=== PATIENT | female | born 1955 | race Caucasian/White ===

== ENCOUNTER 2021-04-10 09:15 | Outpatient (REF) | payer MEDICARE, MEDICAID, SELFPAY ==
[2021-04-10 09:41] LABS: Binax Internal Control QC Valid; Binax Now Covid-19 Ag Positive (Negative)
== END 2021-04-10 09:16 | disposition home or self-care (01) ==
LOC: HO.HMGCLDS 09:15
PROVIDERS: PCP Internal Medicine; Visit Provider Nurse Practitioner Family
DX: Z13.89 Encounter for screening for other disorder (principal)

== ENCOUNTER 2021-08-11 08:27 | Inpatient (IN) | payer MEDICARE, MEDICAID, SELFPAY ==
--- NOTE | ~2021-08-11 | NM_ITS ---
EXAMINATION: NM BILIARY TRACT IMAGING STUDY CLINICAL INFORMATION: Right upper quadrant pain. Question of acute cholecystitis.. COMPARISON: Moderate quadrant ultrasound performed earlier same date. TECHNIQUE: Serial gamma scintillation camera images were obtained over the abdomen for a total observation period of 240 minutes following the intravenous administration of 5.0 mCi Tc-99m Mebrofenin. FINDINGS: There is good concentration of activity in the liver by 5 minutes post injection. Biliary activity is visualized by 7 minutes. Small bowel is well visualized by 9 minutes. The gallbladder is not visualized during the course of the examination. NM/NM hepatobiliary wo pharm IMPRESSION: Nonvisualization of the gallbladder would be compatible with obstruction of the cystic duct and would be compatible with acute cholecystitis, as suggested on the right upper quadrant ultrasound.
--- NOTE | ~2021-08-11 | CT_ITS ---
PROCEDURE: CT GUIDED GALLBLADDER DRAINAGE. CLINICAL INFORMATION: Acute cholecystitis.. Nonsurgical case. COMPARISON: HIDA scan and ultrasound abdomen 08/11/2021 TECHNIQUE: Following explaining CT fluoroscopy-guided placement of the gallbladder catheter procedure, benefits and risk, a written consent was obtained. Patient was placed on CT fluoroscopy table and preliminary CT imaging was obtained through the upper abdomen. Lead markers were placed along the right anterolateral abdomen and repeat CT imaging was performed. An optimal markers was selected and marked on the skin. The area was prepped and draped in usual sterile manner with 2% chlorhexidine solution. 1% lidocaine was injected at puncture site. Through a small skin incision a long 5 [place] Yueh catheter was inserted from the skin into the gallbladder under CT fluoroscopy guidance. After confirming tip in the gallbladder and observing bilateral drainage a 0.135 J-wire was placed inside the gallbladder. The Yueh catheter was removed and 8.5 [place] APD catheter was advanced over the guidewire. Repeat CT fluoroscopy imaging was performed and after confirming catheter within the gallbladder the guidewire and the stiffener were removed and the string was pulled with subsequent formation of the pigtail. The catheter was then connected to suction bulb is large grenade via connecting cannula. The catheter was anchored to the skin with 3 0 nonabsorbable nylon sutures and dressing. Conscious sedation was utilized during the exam and patient monitored by IR nursing. Patient tolerated procedure extremely well but developed symptoms post procedure. Patient was sent to postop recovery room and was followed by the surgeon and the hospitalist. This CT examination was performed using dose optimization techniques as appropriate, variously including the following: *Automated exposure control *Adjustment of mA and/or kV according to patient size (this includes techniques or standardized protocols for targeted exams where dose is matched to indication/reason for exam; i.e. extremities or head) *Use of iterative reconstruction technique DLP: 561 mGy-cm FINDINGS: On preliminary CT imaging there is a distended gallbladder with a large gallstone and likely gallbladder wall thickening and heterogeneous appearance. 8.5 [place] APD catheter was at place within the gallbladder with immediate 25 mL of bile drained. It did not appear to purulent. CT/CT drain peritoneum IMPRESSION: Successful CT fluoroscopy-guided placement of 8.5 [place] APD catheter connected to suction bulb/crenated. Flush 10 mL of saline every 8 hours without aspiration of fluid.
--- NOTE | ~2021-08-11 | XR_ITS ---
EXAMINATION: CHEST, KUB CLINICAL INFORMATION: Sudden onset wheezing and shortness of breath after cholecystotomy COMPARISON: Chest radiograph 12/16/2008, CT guided drainage 08/14/2021, earlier today TECHNIQUE: Single view chest, single view abdomen FINDINGS: The lungs are hypoexpanded. Right midlung atelectasis is seen. Heart size normal without CHF. No pneumothorax. No large pleural effusion. No consolidations. A cholecystostomy catheter is present. There is an ovoid 1.4 cm calculus present in the right renal pelvis. No evidence of bowel obstruction. Degenerative changes present in the spine. XR/XR chest 1V IMPRESSION: No acute disease seen in the chest or abdomen.
--- NOTE | ~2021-08-11 | XR_ITS ---
EXAMINATION: CHEST, KUB CLINICAL INFORMATION: Sudden onset wheezing and shortness of breath after cholecystotomy COMPARISON: Chest radiograph 12/16/2008, CT guided drainage 08/14/2021, earlier today TECHNIQUE: Single view chest, single view abdomen FINDINGS: The lungs are hypoexpanded. Right midlung atelectasis is seen. Heart size normal without CHF. No pneumothorax. No large pleural effusion. No consolidations. A cholecystostomy catheter is present. There is an ovoid 1.4 cm calculus present in the right renal pelvis. No evidence of bowel obstruction. Degenerative changes present in the spine. XR/XR KUB IMPRESSION: No acute disease seen in the chest or abdomen.
--- NOTE | ~2021-08-11 | US_ITS ---
EXAMINATION: US ABDOMEN LIMITED CLINICAL INFORMATION: Right upper quadrant pain. COMPARISON: None TECHNIQUE: Real-time imaging of the right upper quadrant abdominal viscera. FINDINGS: PANCREAS: Visualized portions of pancreas are normal in appearance. LIVER: The liver is normal in size. The liver contour is normal. Liver echogenicity is diffusely increased. No focal hepatic lesion. There is no intrahepatic biliary duct dilatation seen. GALLBLADDER: The gallbladder is distended. There is prominent echogenic, avascular, nonshadowing material within the gallbladder which is nonspecific but suspected to represent echogenic bile. Only a tiny subcentimeter gallstone is noted. There is diffuse gallbladder wall thickening measuring up to 1.2 cm. Pericholecystic fluid is noted. Technologist reports mild discomfort with transducer palpation. COMMON BILE DUCT: Normal in caliber measuring 0.7 cm in diameter. RIGHT KIDNEY: No hydronephrosis. No renal calculi or focal parenchymal lesions. The kidney measures 14.5 cm in maximum dimension. FREE FLUID: None. US/US abdomen limited IMPRESSION: Abnormal appearance of the gallbladder. Acute cholecystitis is within the differential. Prominent echogenic, avascular, nonshadowing material within the gallbladder is suspected to represent echogenic bile although a mass is within the differential although no color flow suggests against a mass. Clinical correlation is recommended. HIDA imaging may be warranted. Surgical consultation is also likely warranted.
[2021-08-11 09:22] VITALS: BP 161/58; PULSE 90; RESP 18; TEMP 37.1; O2SAT 98; BMI 33.3
[2021-08-11 09:37] LABS: MANUAL DIFF FLAG NO
[2021-08-11 09:43] LABS: Basophils Percent Auto 0.2 % (0-2); Eosinophils Absolute Auto 0.1 X10*3/uL (0.0-0.4); Eosinophils Percent Auto 0.5 % (0-4); Hematocrit 39.8 % (37.0-47.0); Hemoglobin 13.1 g/dl (12.0-16.0); Imm Gran Abs Auto 0.11 X10*3/uL (0.00-0.03); Imm Gran Pct Auto 0.6 % (0.0-0.4); Lymphocytes Absolute Auto 1.4 X10*3/uL (1.2-4.9); Lymphocytes Percent Auto 8.2 % (20-40); Mean Corpuscular HGB Conc 32.9 g/dl (31.0-35.0); Mean Corpuscular Hemoglobin 28.7 pg (27.0-33.0); Mean Corpuscular Volume 87.1 fL (80.0-98.0); Mean Platelet Volume 11.8 fL (9.4-12.3); Monocytes Percent Auto 5.9 % (2-11); Neutrophils Absolute Auto 14.7 x10*3/uL (2.0-8.3); Neutrophils Percent Auto 84.6 % (45-73); Platelet Count 296 X10*3/uL (160-400); Red Blood Count 4.57 X10*6/uL (4.20-5.50); White Blood Count 17.4 X10*3/uL (4.8-10.8)
[2021-08-11 09:53] LABS: COVID-19 Test Negative (Negative); IDNOW Serial# 16C4AD1C; Influenza A Negative (Negative); Influenza B2 Negative (Negative)
[2021-08-11 10:01] LABS: Alanine Aminotransferase 19 U/L (0-31); Albumin Level 3.6 g/dL (3.5-5.0); Alkaline Phosphatase 123 U/L (39-117); Anion Gap 16 (12-20); Aspartate Amino Transferase 18 U/L (5-31); Bilirubin Total 1.1 mg/dL (0.0-1.0); Blood Urea Nitrogen 24 mg/dL (9-16); Calcium 9.6 mg/dL (8.4-10.2); Carbon Dioxide 26 mmol/L (22-29); Chloride 96 mmol/L (96-108); Creatinine Clr Calc Pharmacy 69.9; Estimated Glomerular Filt Rate 59; Glucose Random 391 mg/dL (60-115); Lipase 7 U/L (8-78); Potassium 4.5 mmol/L (3.3-5.1); Sodium 133 mmol/L (135-145); Total Protein 6.6 g/dL (6.5-8.0)
[2021-08-11 10:20] LABS: Appearance Urine HAZY; Color Urine YELLOW; Glucose Urine UA >=1000 MG/DL (NEG); Leukocyte Esterase Urine NEG (NEG); Nitrite Urine NEG (NEG); UACC Culture Trigger NO; Urine Blood TRACE (NEG); Urine Ketones 15 MG/DL (NEG); Urine Protein 1+ MG/DL (NEG-TRACE)
[2021-08-11 10:28] LABS: Mucus Urine TRACE /LPF; Squamous Epithelial Cell Urine 1+ /LPF; WBC Urine 0-2 /HPF (0-4)
--- NOTE | 2021-08-11 12:02 | ED.ABDPAIN ---
HPI - Abdominal Pain General Chief Complaint: Abdominal Pain Stated Complaint: r side abd pain Time Seen by Provider: 08/11/21 11:42 Source: patient Mode of arrival: ambulatory Limitations: no limitations History of Present Illness HPI narrative: 65 years old female came in for evaluation of abdominal pain and generalized weakness. Right upper quadrant abdominal pain started about a week ago after eating greasy foods celebrating her mother day with the family, patient was seen and evaluated by her PCP who order outpatient ultrasound reportedly showed gallbladder problem, patient reported improvement of the abdominal pain and patient's symptoms has improved over the past week gradually, patient is here today complaining of slight upper abdominal pain but generalized weakness overall do not feel well, no fever or chills. Related Data Home Medications Medication Instructions Recorded Confirmed aspirin 325 mg tablet 325 mg PO DAILY 04/10/21 insulin glargine 100 unit/mL (3 70 unit SUBCUT QAM ml 04/10/21 mL) subcutaneous pen (Lantus Solostar U-100 Insulin) Previous Rx's Medication Instructions Recorded azithromycin 250 mg tablet See Rx Instructions PO .COMPLEX #6 04/10/21 tab Allergies Allergy/AdvReac Type Severity Reaction Status Date / Time levofloxacin [From LEVAQUIN] Allergy Mild RASH Verified 08/11/21 09:22 Penicillins [PCN] Allergy Mild UNKNOWN Verified 08/11/21 09:22 sulfur Allergy Unknown Rash Verified 08/11/21 09:22 Review of Systems Review of Systems All other systems are reviewed and are negative Constitutional: Reports as per HPI and Reports no additional constitutional complaints Eyes: Reports as per HPI and Reports no additional eye complaints Reports system reviewed and no additional complaints, except as documented Cardiovascular: Reports as per HPI and Reports no additional cardiovascular complaints Respiratory: Reports as per HPI and Reports no additional respiratory complaints Gastrointestinal: Reports as per HPI and Reports no additional gastrointestinal complaints Genitourinary: Reports no additional female genitourinary complaints Musculoskeletal: Reports no additional musculoskeletal complaints Skin/Breast: Reports system reviewed and no additional complaints, except as docu Psychiatric: Reports no additional psychiatric complaints Endocrine: Reports no additional endocrine complaints Hematologic/Lymphatic: Reports no additional hematologic/lymphatic complaints Allergic/Immunologic: Reports no additional allergic/immunologic complaints Reports system reviewed and no additional complaints, except as documented and Reports Abnormal speech present [facility] Social History Social History Patient Tobacco Use Status: Former Tobacco user Advance Directives: Yes Advance Directives Information Provided: Yes Advance Directives on File: No Physical Exam ED Vital Signs: Vital Signs - 24 hr 08/11/21 09:22 08/11/21 12:13 Temperature 98.7 F 99.3 F Pulse Rate 90 84 Respiratory Rate 18 16 Blood Pressure 161/58 H 156/62 H Pulse Oximetry 98 97 BMI result Body Mass Index 33.3 vital signs have been reviewed as appeared to be correct. Blood pressure normal. Heart rate normal. Respiration rate normal. Temperature normal. Oxygen saturation normal. Appearance: Alert. Oriented X3. No acute distress. Head: Normal external exam. Normocephalic. Atraumatic. No Jacob signs noted. No raccoon eyes noted Eyes: PERRLA. EOMI. Conjunctiva and sclera normal. Eyelids normal. ENT: TM's Normal. Pharynx normal. Uvula midline. Moist mucous membranes. No trismus noted. No drooling noted. No muffled voice noted. Neck: Normal inspection. Neck supple. FROM. No adenopathy. Thyroid Normal. No meningeal signs. No neck mass noted. CVS: Normal heart rate and rhythm. Heart sound normal. No murmurs noted. Pulses normal throughout. Respiratory: No respiratory distress. Painless inspiration. Breath sounds normal. No wheezes/rales/rhonchi noted. Chest nontender. No accessory muscle usage noted or decreased air movement noted. Abdomen: Soft , right upper quadrant tenderness, no rebound tenderness, no guarding, positive Allison's sign.. Bowel sounds normal in all 4 quadrants. No distention noted. No organomegaly noted. No visible injury noted. Back: No CVA tenderness. Full range of motion noted. Skin: Skin warm and dry. Normal skin color. Normal skin turgor. No rashes/lesions/lacerations noted. Extremities: No lower extremity edema. Extremities exhibit normal range of motion. Extremities nontender. Neuro: Oriented X 3. Cranial nerve exam: II-XII are grossly intact No motor deficit. No sensory deficit. Reflexes normal. Course Reevaluation(s) Reevaluation #1: Assessment and plan. 65-year-old female came in with right upper quadrant pain, patient with acute cholecystitis with leukocytosis and left shift patient is not meeting sirs criteria /no severe sepsis or septic shock., case discussed with Dr. Denise will admit the patient to the surgical service. Patient has allergy to most antibiotic including penicillin and Levaquin, will try cefepime will monitor the patient. MDM - Abdominal Pain Lab Data Attestation: I reviewed the patient's lab results. Result diagrams: 08/11/21 09:32 08/11/21 09:32 Labs: Lab Results 08/11/21 08/11/21 08/11/21 Range/Units 09:32 09:32 09:32 WBC 17.4 H (4.8-10.8) X10*3/uL RBC 4.57 (4.20-5.50) X10*6/uL Hgb 13.1 (12.0-16.0) g/dl Hct 39.8 (37.0-47.0) % MCV 87.1 (80.0-98.0) fL MCH 28.7 (27.0-33.0) pg MCHC 32.9 (31.0-35.0) g/dl RDW 13.0 (11.0-16.0) % Plt Count 296 (160-400) X10*3/uL MPV 11.8 (9.4-12.3) fL Immature Gran % (Auto) 0.6 H (0.0-0.4) % Neut % (Auto) 84.6 H (45-73) % Lymph % (Auto) 8.2 L (20-40) % [place] % (Auto) 5.9 (2-11) % Eos % (Auto) 0.5 (0-4) % Baso % (Auto) 0.2 (0-2) % Lymph # (Auto) 1.4 (1.2-4.9) X10*3/uL [place] # (Auto) 1.0 (0.1-1.2) X10*3/uL Eos # (Auto) 0.1 (0.0-0.4) X10*3/uL Baso # (Auto) 0.0 (0.0-0.2) X10*3/uL Abs Immat Gran (auto) 0.11 H (0.00-0.03) X10*3/uL Absolute Neuts (auto) 14.7 H (2.0-8.3) x10*3/uL Absolute Nucleated RBC 0.000 (0.0-0.012) X10*3/uL Nucleated RBC % (auto) 0.0 (0.0-0.2) /100WBC Sodium 133 L (135-145) mmol/L Potassium 4.5 (3.3-5.1) mmol/L Chloride 96 (96-108) mmol/L Carbon Dioxide 26 (22-29) mmol/L Anion Gap 16 (12-20) BUN 24 H (9-16) mg/dL Creatinine 0.95 (0.5-1.4) mg/dL Estim Creat Clear Calc 69.9 Estimated GFR 59 Random Glucose 391 H* (60-115) mg/dL Calcium 9.6 (8.4-10.2) mg/dL Total Bilirubin 1.1 H (0.0-1.0) mg/dL AST 18 (5-31) U/L ALT 19 (0-31) U/L Alkaline Phosphatase 123 H (39-117) U/L Total Protein 6.6 (6.5-8.0) g/dL Albumin 3.6 (3.5-5.0) g/dL Lipase 7 L (8-78) U/L Urine Color Urine Appearance Urine pH (5.0-8.0) Ur Specific [place] (1.005-1.025) Urine Protein (NEG-TRACE) MG/DL Urine Glucose (UA) (NEG) MG/DL Urine Ketones (NEG) MG/DL Urine Blood (NEG) Urine Nitrite (NEG) Ur Leukocyte Esterase (NEG) Urine RBC (0) /HPF Urine WBC (0-4) /HPF Ur Squamous Epith Cells /LPF Urine Bacteria /LPF Urine Mucus /LPF COVID-19 (FABIO) Negative (Negative) COVID-19 Clin Com See Note Influenza Type A (DIANE) (Negative) Influenza Type B (DIANE) (Negative) Influenza A & B Note 08/11/21 08/11/21 Range/Units 09:32 09:56 WBC (4.8-10.8) X10*3/uL RBC (4.20-5.50) X10*6/uL Hgb (12.0-16.0) g/dl Hct (37.0-47.0) % MCV (80.0-98.0) fL MCH (27.0-33.0) pg MCHC (31.0-35.0) g/dl RDW (11.0-16.0) % Plt Count (160-400) X10*3/uL MPV (9.4-12.3) fL Immature Gran % (Auto) (0.0-0.4) % Neut % (Auto) (45-73) % Lymph % (Auto) (20-40) % [place] % (Auto) (2-11) % Eos % (Auto) (0-4) % Baso % (Auto) (0-2) % Lymph # (Auto) (1.2-4.9) X10*3/uL [place] # (Auto) (0.1-1.2) X10*3/uL Eos # (Auto) (0.0-0.4) X10*3/uL Baso # (Auto) (0.0-0.2) X10*3/uL Abs Immat Gran (auto) (0.00-0.03) X10*3/uL Absolute Neuts (auto) (2.0-8.3) x10*3/uL Absolute Nucleated RBC (0.0-0.012) X10*3/uL Nucleated RBC % (auto) (0.0-0.2) /100WBC Sodium (135-145) mmol/L Potassium (3.3-5.1) mmol/L Chloride (96-108) mmol/L Carbon Dioxide (22-29) mmol/L Anion Gap (12-20) BUN (9-16) mg/dL Creatinine (0.5-1.4) mg/dL Estim Creat Clear Calc Estimated GFR Random Glucose (60-115) mg/dL Calcium (8.4-10.2) mg/dL Total Bilirubin (0.0-1.0) mg/dL AST (5-31) U/L ALT (0-31) U/L Alkaline Phosphatase (39-117) U/L Total Protein (6.5-8.0) g/dL Albumin (3.5-5.0) g/dL Lipase (8-78) U/L Urine Color YELLOW Urine Appearance HAZY Urine pH 6.0 (5.0-8.0) Ur Specific [place] 1.020 (1.005-1.025) Urine Protein 1+ H (NEG-TRACE) MG/DL Urine Glucose (UA) >=1000 H (NEG) MG/DL Urine Ketones 15 (NEG) MG/DL Urine Blood TRACE (NEG) Urine Nitrite NEG (NEG) Ur Leukocyte Esterase NEG (NEG) Urine RBC 1-4 (0) /HPF Urine WBC 0-2 (0-4) /HPF Ur Squamous Epith Cells 1+ /LPF Urine Bacteria NONE /LPF Urine Mucus TRACE /LPF COVID-19 (FABIO) (Negative) COVID-19 Clin Com Influenza Type A (DIANE) Negative (Negative) Influenza Type B (DIANE) Negative (Negative) Influenza A & B Note See Note Imaging Data Abdominal ultrasound: Attestation: I personally reviewed and interpreted this imaging study as follows: Radiologist's impression: Abnormal appearance of the gallbladder. Acute cholecystitis is within the differential. Prominent echogenic, avascular, nonshadowing material within the gallbladder is suspected to represent echogenic bile although a mass is within the differential although no color flow suggests against a mass. Clinical correlation is recommended. HIDA imaging may be warranted. Surgical consultation is also likely warranted Discharge Plan Discharge Clinical Impression: Acute cholecystitis Patient Disposition: Admitted As Inpatient Prescriptions: No Action Lantus Solostar U-100 Insulin 100 unit/mL (3 mL) insulin pen 70 unit subcut QAM 0RF aspirin 325 mg tablet 325 mg PO DAILY 0RF azithromycin 250 mg tablet See Rx Instructions PO .COMPLEX Qty: 6 0RF Rx Instructions: For 250 mg dose pack: take 500 mg today (day 1), then 250 mg for 4 days (days 2-5) PO
[2021-08-11 12:13] VITALS: BP 156/62; PULSE 84; RESP 16; TEMP 37.4; O2SAT 97
[2021-08-11 13:31] LABS: Lactic Acid 1.3 mmol/L (0.5-2.0)
[2021-08-11] MEDS: cefEPime HCl 1 GM in 0.9 % Sodium Chloride 50 ML IV (14:35)
[2021-08-11] MEDS: Dextrose 5 % and Lactated Ring 1,000 ML 125 ML IVCONT ×2 (14:36→22:18)
--- NOTE | 2021-08-11 15:07 | P.CONHOSP_ITS ---
History of Present Illness Data of Consult Service Date: 08/11/21 Primary Care Provider: Tony Yusuf MD HPI 65-year-old woman presenting to the ER with abdominal pain after eating greasy food about a week ago most her pain was isolated to the right upper quadrant she was seen by her primary care provider and had an outpatient ultrasound which did show some abnormalities of the gallbladder she had improvement in her symptoms. However today she felt weak and overall did not feel well decided come to the ER for further evaluation, abdominal ultrasound showed acute cholecystitis likely. Review of Systems Review of Systems: Denies any recent fever chills or decrease in appetite respiratory denies any shortness of breath coverage production cardiovascular is adjustment of any PND or edema gastrointestinal denies any dysphagia abdominal pain nausea vomiting or diarrhea genitourinary denies any dysuria frequency or hematuria musculoskeletal denies any joint pain or swelling neuropsych denies any weakness or seizures all other systems reviewed are negative [facility] Medical History (Updated 08/12/21 @ 09:07 by Holland Denise MD) CAD (coronary artery disease) Diabetes Factor II deficiency Surgical History (Updated 08/12/21 @ 09:08 by Holland Denise MD) Gastric bypass status for obesity Social History Patient Tobacco Use Status: Former Tobacco user Advance Directives: Yes Advance Directives Information Provided: Yes Advance Directives on File: No Meds Allergies Allergy/AdvReac Type Severity Reaction Status Date / Time levofloxacin [From LEVAQUIN] Allergy Mild RASH Verified 08/11/21 09:22 Penicillins [PCN] Allergy Mild UNKNOWN Verified 08/11/21 09:22 sulfur Allergy Unknown Rash Verified 08/11/21 09:22 Active Medications: Current Medications Hydromorphone HCl (Hydromorphone Hcl 1 Mg/Ml Syringe) 0.5 mg IVPUSH Q3H PRN; Protocol PRN Reason: Pain, Severe (Pain Scale 7-10) Acetaminophen (Ofirmev) 1,000 mg in 100 mls @ 400 mls/hr IV Q6H BALWINDER Dextrose/Lactated Ringer's (D5lr) 1,000 mls @ 125 mls/hr IVCONT .Q8H BALWINDER Last Admin: 08/11/21 14:36 Dose: 125 mls/hr Documented by: Cefepime HCl 2 gm/ Sodium (Chloride) 50 mls @ 100 mls/hr IV Q12H BALWINDER Metronidazole (Flagyl) 500 mg in 100 mls @ 100 mls/hr IV Q6H BALWINDER Ondansetron HCl (Ondansetron Hcl 4 Mg/2 Ml Vial) 4 mg IVPUSH Q8H PRN PRN Reason: Nausea and Vomiting Oxycodone HCl (Oxycodone Hcl Immed Release 5 Mg Tablet) 5 mg PO Q6H PRN PRN Reason: Pain, Moderate (Pain Scale 4-6 Sodium Chloride (0.9 % Sodium Chloride Flush 3 Ml Syringe) 3 ml IVFLUSH QSHIFT BALWINDER Zolpidem Tartrate (Zolpidem Tartrate 5 Mg Tablet) 5 mg PO BEDTIME PRN PRN Reason: Insomnia Home Medications Medication Instructions Recorded Confirmed Last Taken Type brimonidine 0.2 % eye drops 1 drp OPHTHALMIC (EYE) TID 08/11/21 08/11/21 08/11/21 History dorzolamide 22.3 mg-timolol 6.8 1 drp OPHTHALMIC-RIGHT BID 08/11/21 08/11/21 08/11/21 History mg/mL eye drops insulin glargine 100 unit/mL (3 65 unit SUBCUT BEDTIME 08/11/21 08/11/21 08/10/21 History mL) subcutaneous pen (Lantus Solostar U-100 Insulin) latanoprost 0.005 % eye drops 1 drp OPHTHALMIC-RIGHT BEDTIME 08/11/21 08/11/21 08/11/21 History Physical Exam Vital Signs and Narrative: Vital Signs: Last Vital Signs Temp 99.3 F 08/11/21 12:13 Pulse 84 08/11/21 12:13 Resp 16 08/11/21 12:13 BP 156/62 H 08/11/21 12:13 Pulse Ox 97 08/11/21 12:13 BMI result Body Mass Index 33.3 Appearing in no acute distress head is normocephalic atraumatic eyes pupils are PERRLA sclera is anicteric mouth throat mucous membranes are intact and moist neck is supple no lymphadenopathy, no JVD noted lung sounds are clear to auscultation heart regular rate rhythm, clear S1, S2 positive bowel sounds, abdomen is soft, nontender neuro patient is alert x3, no focal deficits Results Labs CBC and Chem 7: 08/12/21 05:52 08/12/21 05:52 Labs: Laboratory Results - last 24 hr 08/11/21 08/11/21 08/11/21 09:32 09:32 09:32 MCV 87.1 MCH 28.7 MCHC 32.9 RDW 13.0 Plt Count 296 MPV 11.8 Immature Gran % (Auto) 0.6 H Neut % (Auto) 84.6 H Lymph % (Auto) 8.[address] [facility] % (Auto) 5.9 Eos % (Auto) 0.5 Baso % (Auto) 0.2 Lymph # (Auto) 1.4 [facility] # (Auto) 1.0 Eos # (Auto) 0.1 Baso # (Auto) 0.0 Abs Immat Gran (auto) 0.11 H Absolute Neuts (auto) 14.7 H Absolute Nucleated RBC 0.000 Nucleated RBC % (auto) 0.0 Anion Gap 16 Estim Creat Clear Calc 69.9 Estimated GFR 59 Random Glucose 391 H* Lactic Acid Calcium 9.6 Total Bilirubin 1.1 H AST 18 ALT 19 Alkaline Phosphatase 123 H Total Protein 6.6 Albumin 3.6 Lipase 7 L Urine Color Urine Appearance Urine pH Ur Specific [place] Urine Protein Urine Glucose (UA) Urine Ketones Urine Blood Urine Nitrite Ur Leukocyte Esterase Urine RBC Urine WBC Ur Squamous Epith Cells Urine Bacteria Urine Mucus COVID-19 (FABIO) Negative COVID-19 Clin Com See Note Influenza Type A (DIANE) Influenza Type B (DIANE) Influenza A & B Note 08/11/21 08/11/21 08/11/21 09:32 09:56 13:15 MCV MCH MCHC RDW Plt Count MPV Immature Gran % (Auto) Neut % (Auto) Lymph % (Auto) [facility] % (Auto) Eos % (Auto) Baso % (Auto) Lymph # (Auto) [facility] # (Auto) Eos # (Auto) Baso # (Auto) Abs Immat Gran (auto) Absolute Neuts (auto) Absolute Nucleated RBC Nucleated RBC % (auto) Anion Gap Estim Creat Clear Calc Estimated GFR Random Glucose Lactic Acid 1.3 Calcium Total Bilirubin AST ALT Alkaline Phosphatase Total Protein Albumin Lipase Urine Color YELLOW Urine Appearance HAZY Urine pH 6.0 Ur Specific [place] 1.020 Urine Protein 1+ H Urine Glucose (UA) >=1000 H Urine Ketones 15 Urine Blood TRACE Urine Nitrite NEG Ur Leukocyte Esterase NEG Urine RBC 1-4 Urine WBC 0-2 Ur Squamous Epith Cells 1+ Urine Bacteria NONE Urine Mucus TRACE COVID-19 (FABIO) COVID-19 Clin Com Influenza Type A (DIANE) Negative Influenza Type B (DIANE) Negative Influenza A & B Note See Note Imaging Radiologist's Impressions: Impressions Abdomen Ultrasound 08/11/21 12:36 IMPRESSION: Abnormal appearance of the gallbladder. Acute cholecystitis is within the differential. Prominent echogenic, avascular, nonshadowing material within the gallbladder is suspected to represent echogenic bile although a mass is within the differential although no color flow suggests against a mass. Clinical correlation is recommended. HIDA imaging may be warranted. Surgical consultation is also likely warranted. Assessment and Plan (1) Acute cholecystitis: Status: Acute Plan 65 year old women admitted by general surgery for acute cholecystitis Acute cholecystitis Management as per surgical team Pain management Leukocytosis Likely related to acute cholecystitis Diabetes mellitus Sliding scale, ADA diet Continue Lantus Hypertension Continue lisinopril Asthma Continue albuterol as needed hx of CAD May need cardio eval prior to surgery DVT prophylaxis as per surgical team Attending Dr. Riggs Full code
[2021-08-11 15:14] VITALS: BP 154/68; PULSE 92; RESP 18; TEMP 37.2; O2SAT 95
--- NOTE | 2021-08-11 15:33 | PHA.MEDREC ---
Pharmacy Consult ? Medication Reconciliation Pharmacy has completed the medication reconciliation.
[2021-08-11] MEDS: metroNIDAZOLE/NS 500 MG/100 ML PIGGYBACK 100 MG IV ×2 (16:14→22:18)
[2021-08-11 20:12] VITALS: BP 130/65; PULSE 83; RESP 16; TEMP 37.2; O2SAT 96
[2021-08-11 22:12] VITALS: BP 143/61; PULSE 84; RESP 16; TEMP 37.3; O2SAT 96
[2021-08-11] MEDS: Insulin Glargine,Hum.rec.anlog 100 UNIT/ML 10 ML VIAL 65 UNIT SUBCUT (22:15)
[2021-08-11] MEDS: Insulin Lispro 100 UNIT/ML 3 ML VIAL SUBCUT (22:16)
[2021-08-11 22:17] LABS: Glucose, Whole Blood 341 mg/dL (60-115)
[2021-08-12] VITALS (7 sets, daily range): BP systolic 114–157; BP diastolic 46–72; PULSE 68–108; RESP 14–18; TEMP 36.5–37.9; O2SAT 92–97
--- NOTE | 2021-08-12 | ECG_ITS ---
Test Reason : PRE OP Blood Pressure : / mmHG Vent. Rate : 077 BPM Atrial Rate : 077 BPM P-R Int : 158 ms QRS Dur : 158 ms QT Int : 462 ms P-R-T Axes : 055 -51 022 degrees QTc Int : 522 ms Normal sinus rhythm Right bundle branch block Left anterior fascicular block Bifascicular block Minimal voltage criteria for LVH, may be normal variant ( R in aVL ) Abnormal ECG No previous ECGs available Referred By: Holland Denise Electronically Signed By:MINOO HERCULES MD
[2021-08-12] MEDS: Dorzolamide/Timolo 2.23%/0.68% 10 ML DRBTL 1 DROP EYE-RIGHT ×4 (00:55→20:43)
[2021-08-12] MEDS: Latanoprost 0.005 % Ophth Sol 2.5 ML DROPS 1 DROP EYE-RIGHT ×2 (00:55→20:43)
[2021-08-12] MEDS: cefEPime HCl 2 GM in 0.9 % Sodium Chloride 50 ML IV ×2 (02:29→15:03)
[2021-08-12] MEDS: metroNIDAZOLE/NS 500 MG/100 ML PIGGYBACK 100 MG IV ×4 (02:29→20:48)
[2021-08-12 06:59] LABS: MANUAL DIFF FLAG NO
[2021-08-12 07:05] LABS: Basophils Percent Auto 0.2 % (0-2); Eosinophils Absolute Auto 0.1 X10*3/uL (0.0-0.4); Eosinophils Percent Auto 1.2 % (0-4); Hematocrit 34.9 % (37.0-47.0); Hemoglobin 11.6 g/dl (12.0-16.0); Imm Gran Abs Auto 0.08 X10*3/uL (0.00-0.03); Imm Gran Pct Auto 0.8 % (0.0-0.4); Lymphocytes Absolute Auto 1.3 X10*3/uL (1.2-4.9); Lymphocytes Percent Auto 12.2 % (20-40); Mean Corpuscular HGB Conc 33.2 g/dl (31.0-35.0); Mean Corpuscular Hemoglobin 29.4 pg (27.0-33.0); Mean Corpuscular Volume 88.4 fL (80.0-98.0); Mean Platelet Volume 12.1 fL (9.4-12.3); Monocytes Absolute Auto 0.8 X10*3/uL (0.1-1.2); Monocytes Percent Auto 7.8 % (2-11); Neutrophils Absolute Auto 8.1 x10*3/uL (2.0-8.3); Neutrophils Percent Auto 77.8 % (45-73); Platelet Count 254 X10*3/uL (160-400); Red Blood Count 3.95 X10*6/uL (4.20-5.50); Red Cell Distribution Width 12.7 % (11.0-16.0); White Blood Count 10.5 X10*3/uL (4.8-10.8)
[2021-08-12 07:29] LABS: Glucose, Whole Blood 278 mg/dL (60-115)
[2021-08-12 07:34] LABS: Anion Gap 13 (12-20); Blood Urea Nitrogen 19 mg/dL (9-16); Calcium 9.3 mg/dL (8.4-10.2); Carbon Dioxide 26 mmol/L (22-29); Chloride 101 mmol/L (96-108); Creatinine Clr Calc Pharmacy 89.8; Estimated Glomerular Filt Rate > 60; Glucose Random 296 mg/dL (60-115); Potassium 3.9 mmol/L (3.3-5.1); Sodium 136 mmol/L (135-145)
--- NOTE | 2021-08-12 07:51 | P.PNIM_ITS ---
Subjective Subjective Date of Service: 08/12/21 Review of Systems Follow up consultation for acute diane No pain Physical Exam Vital Signs: Vital Signs: Last Vital Signs Temp 97.7 F 08/12/21 07:35 Pulse 72 08/12/21 07:35 Resp 14 08/12/21 07:35 BP 153/46 H 08/12/21 07:35 Pulse Ox 97 08/12/21 07:35 BMI result Body Mass Index 33.3 Appearing in no acute distress lung sounds are clear to auscultation heart regular rate rhythm, clear S1, S2 positive bowel sounds, abdomen is soft, nontender neuro patient is alert x3, no focal deficits Objective Data Active Medications Brimonidine Tartrate (Brimonidine Tartrate 0.2% Oph 5 Ml Bottle) 1 drop EYE-ANUEL TH TID [facility] Last Admin: 08/11/21 22:04 Dose: Not Given Documented by: SCOT Non-Admin Reason: Med Not Available Dextrose (Dextrose 50 % 25 Gm/50 Ml Syringe) 25 gm IVPUSH Q15M PRN; Protocol PRN Reason: per Hypoglycemia Standing Ord. Dorzolamide/Timolol (Dorzolamide/Timolo 2.23%/0.68% 10 Ml Drbtl) 1 drop EYE- RIGHT BID [facility] Last Admin: 08/12/21 00:56 Dose: 1 drop Documented by: NANETTE Glucose (Glucose Gel 15 Gm Gel..Gram.) 15 gm PO Q15M PRN; Protocol PRN Reason: per Hypoglycemia Standing Ord. Hydromorphone HCl (Hydromorphone Hcl 1 Mg/Ml Syringe) 0.5 mg IVPUSH Q3H PRN; Protocol PRN Reason: Pain, Severe (Pain Scale 7-10) Dextrose/Lactated Ringer's (D5lr) 1,000 mls @ 125 mls/hr IVCONT .Q8H [facility] Last Admin: 08/11/21 22:18 Dose: 125 mls/hr Documented by: SCOT Cefepime HCl 2 gm/ Sodium (Chloride) 50 mls @ 100 mls/hr IV Q12H [facility] Last Infusion: 08/12/21 02:59 Dose: 0 mls/hr Documented by: NANETTE Metronidazole (Flagyl) 500 mg in 100 mls @ 100 mls/hr IV Q6H [facility] Last Infusion: 08/12/21 03:29 Dose: 0 mls/hr Documented by: NANETTE Acetaminophen (Ofirmev) 1,000 mg in 100 mls @ 400 mls/hr IV Q6H [facility] Last Infusion: 08/12/21 03:45 Dose: 400 mls/hr Documented by: NANETTE Insulin Glargine (Insulin Glargine,Hum.Rec.Anlog 100 Unit/Ml 10 Ml Vial) 65 unit SUBCUT BEDTIME [facility] Last Admin: 08/11/21 22:15 Dose: 65 unit Documented by: SCOT Insulin Human Lispro (Insulin Lispro 100 Unit/Ml 3 Ml Vial) 0 unit SUBCUT QIDACHS [facility]; Protocol Stop: 08/12/21 13:34 Last Admin: 08/11/21 22:16 Dose: 8 unit Documented by: SCOT Latanoprost (Latanoprost 0.005 % Ophth Radha 2.5 Ml Drops) 1 drop EYE-RIGHT BEDTIME [facility] Last Admin: 08/12/21 00:55 Dose: 1 drop Documented by: NANETTE Ondansetron HCl (Ondansetron Hcl 4 Mg/2 Ml Vial) 4 mg IVPUSH Q8H PRN PRN Reason: Nausea and Vomiting Oxycodone HCl (Oxycodone Hcl Immed Release 5 Mg Tablet) 5 mg PO Q6H PRN PRN Reason: Pain, Moderate (Pain Scale 4-6 Pharmacy Consult (Consult Rx Perform Med Rec) 1 each MISCELLANE ONCE PRN PRN Reason: Consult order Sodium Chloride (0.9 % Sodium Chloride Flush 3 Ml Syringe) 3 ml IVFLUSH QSHIFT [facility] Last Admin: 08/12/21 02:12 Dose: Not Given Documented by: NANETTE Non-Admin Reason: IV Running Zolpidem Tartrate (Zolpidem Tartrate 5 Mg Tablet) 5 mg PO BEDTIME PRN PRN Reason: Insomnia Labs CBC & Chem 7: 08/12/21 05:52 08/12/21 05:52 Labs: Laboratory Results - last 24 hr 08/11/21 08/11/21 08/11/21 09:32 09:32 09:32 MCV 87.1 MCH 28.7 MCHC 32.9 RDW 13.0 Plt Count 296 MPV 11.8 Immature Gran % (Auto) 0.6 H Neut % (Auto) 84.6 H Lymph % (Auto) 8.2 L [place] % (Auto) 5.9 Eos % (Auto) 0.5 Baso % (Auto) 0.2 Lymph # (Auto) 1.4 [place] # (Auto) 1.0 Eos # (Auto) 0.1 Baso # (Auto) 0.0 Abs Immat Gran (auto) 0.11 H Absolute Neuts (auto) 14.7 H Absolute Nucleated RBC 0.000 Nucleated RBC % (auto) 0.0 Anion Gap 16 Estim Creat Clear Calc 69.9 Estimated GFR 59 POC Glucose Random Glucose 391 H* Lactic Acid Calcium 9.6 Total Bilirubin 1.1 H AST 18 ALT 19 Alkaline Phosphatase 123 H Total Protein 6.6 Albumin 3.6 Lipase 7 L Urine Color Urine Appearance Urine pH Ur Specific [place] Urine Protein Urine Glucose (UA) Urine Ketones Urine Blood Urine Nitrite Ur Leukocyte Esterase Urine RBC Urine WBC Ur Squamous Epith Cells Urine Bacteria Urine Mucus COVID-19 (FABIO) Negative COVID-19 Clin Com See Note Influenza Type A (DIANE) Influenza Type B (DIANE) Influenza A & B Note 08/11/21 08/11/21 08/11/21 09:32 09:56 13:15 MCV MCH MCHC RDW Plt Count MPV Immature Gran % (Auto) Neut % (Auto) Lymph % (Auto) [place] % (Auto) Eos % (Auto) Baso % (Auto) Lymph # (Auto) [place] # (Auto) Eos # (Auto) Baso # (Auto) Abs Immat Gran (auto) Absolute Neuts (auto) Absolute Nucleated RBC Nucleated RBC % (auto) Anion Gap Estim Creat Clear Calc Estimated GFR POC Glucose Random Glucose Lactic Acid 1.3 Calcium Total Bilirubin AST ALT Alkaline Phosphatase Total Protein Albumin Lipase Urine Color YELLOW Urine Appearance HAZY Urine pH 6.0 Ur Specific [place] 1.020 Urine Protein 1+ H Urine Glucose (UA) >=1000 H Urine Ketones 15 Urine Blood TRACE Urine Nitrite NEG Ur Leukocyte Esterase NEG Urine RBC 1-4 Urine WBC 0-2 Ur Squamous Epith Cells 1+ Urine Bacteria NONE Urine Mucus TRACE COVID-19 (FABIO) COVID-19 Clin Com Influenza Type A (DIANE) Negative Influenza Type B (DIANE) Negative Influenza A & B Note See Note 08/11/21 08/12/21 08/12/21 22:08 05:52 05:52 MCV 88.4 MCH 29.4 MCHC 33.2 RDW 12.7 Plt Count 254 MPV 12.1 Immature Gran % (Auto) 0.8 H Neut % (Auto) 77.8 H Lymph % (Auto) 12.2 L [place] % (Auto) 7.8 Eos % (Auto) 1.2 Baso % (Auto) 0.2 Lymph # (Auto) 1.3 [place] # (Auto) 0.8 Eos # (Auto) 0.1 Baso # (Auto) 0.0 Abs Immat Gran (auto) 0.08 H Absolute Neuts (auto) 8.1 Absolute Nucleated RBC 0.000 Nucleated RBC % (auto) 0.0 Anion Gap 13 Estim Creat Clear Calc 89.8 Estimated GFR > 60 POC Glucose 341 H Random Glucose 296 H Lactic Acid Calcium 9.3 Total Bilirubin AST ALT Alkaline Phosphatase Total Protein Albumin Lipase Urine Color Urine Appearance Urine pH Ur Specific [place] Urine Protein Urine Glucose (UA) Urine Ketones Urine Blood Urine Nitrite Ur Leukocyte Esterase Urine RBC Urine WBC Ur Squamous Epith Cells Urine Bacteria Urine Mucus COVID-19 (FABIO) COVID-19 Clin Com Influenza Type A (DIANE) Influenza Type B (DIANE) Influenza A & B Note 08/12/21 07:24 MCV MCH MCHC RDW Plt Count MPV Immature Gran % (Auto) Neut % (Auto) Lymph % (Auto) [place] % (Auto) Eos % (Auto) Baso % (Auto) Lymph # (Auto) [place] # (Auto) Eos # (Auto) Baso # (Auto) Abs Immat Gran (auto) Absolute Neuts (auto) Absolute Nucleated RBC Nucleated RBC % (auto) Anion Gap Estim Creat Clear Calc Estimated GFR POC Glucose 278 H Random Glucose Lactic Acid Calcium Total Bilirubin AST ALT Alkaline Phosphatase Total Protein Albumin Lipase Urine Color Urine Appearance Urine pH Ur Specific [place] Urine Protein Urine Glucose (UA) Urine Ketones Urine Blood Urine Nitrite Ur Leukocyte Esterase Urine RBC Urine WBC Ur Squamous Epith Cells Urine Bacteria Urine Mucus COVID-19 (FABIO) COVID-19 Clin Com Influenza Type A (DIANE) Influenza Type B (DIANE) Influenza A & B Note Assessment and Plan (1) Acute cholecystitis: Status: Acute Plan 65 year old women admitted by general surgery for acute cholecystitis Acute cholecystitis Management as per surgical team Pain management Cardiology consult for pre-op evaluation Leukocytosis Likely related to acute cholecystitis Diabetes mellitus Sliding scale, ADA diet Continue Lantus Hypertension Continue lisinopril Asthma Continue albuterol as needed Hx of CAD cardiology to follow DVT prophylaxis as per surgical team Attending Dr. Riggs Full code Quality Stroke Does the patient have a stroke diagnosis?: No VTE Prior VTE?: No VTE Risk Level:: Surgical - moderate VTE Device Contraindication: N/A - Device Ordered VTE Drug Contraindication: Treatment Not Indicated
--- NOTE | 2021-08-12 08:18 | PC.NURSE ---
verbal order per dr. paredes - d/c shannon Pack with LR. hold insulin with POC 278. awaiting orders.
[2021-08-12] MEDS: Enoxaparin Sodium 40 MG/0.4 ML SYRINGE SUBCUT (09:02)
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
[2021-08-12] MEDS: Lactated Ringers 1,000 ML 100 ML IVCONT ×2 (09:07→22:20)
[2021-08-12] MEDS: Brimonidine Tartrate 0.2% Oph 5 ML BOTTLE 1 DROP EYE-BOTH ×3 (09:08→20:43)
[2021-08-12 12:49] LABS: Glucose, Whole Blood 238 mg/dL (60-115)
--- NOTE | 2021-08-12 13:12 | MHC.CM.PN ---
met with pt in ed pt is indepedent cm intervention is not indicated dc plan home no servceis pt is not vax
--- NOTE | 2021-08-12 14:27 | P.CONCA_ITS ---
History of Present Illness History of Present Illness Date of Service: 08/12/21 Requesting physician: Dania Amaral Consult reason: pre-op evaluation Chief complaint: Acute cholecystitis Narrative: I was consulted to see Nevaeh in cardiology consultation for preoperative cardiovascular evaluation due to prior history of myocardial infarction. Patient 65-year-old female does not currently see Cardiology on a routine basis as she says she did not have a good experience. About 3 years ago she was under lot of stress due to 's illness and subsequently had developed chest tightness and up going to the emergency room at [facility]. That she was told that she had a heart attack and subsequently underwent a cardiac catheterization however no stenting was performed. She does not know the exact details but since then she has had no symptoms. She was given dual antiplatelet therapy as per her but currently not taking any of that as she is not sure. She has longstanding history of diabetes currently managed. No history of hypertension. She has not had any recurrent symptoms from cardiac perspective. She says she is fairly active and does her day-to-day activity at home going up and down a flight of stairs and walking and doing grocery shopping without any clear exertional symptoms. She has more than 4 Mets of physical activity. She does not exercise on a routine basis. She came in the hospital with acute chol ecystitis and plan to undergo surgical intervention. Review of Systems Constitutional: Constitutional: Reports no additional constitutional complaints Eyes: Eyes: Reports no additional eye complaints Cardiovascular: Cardiovascular: Denies chest pain, Denies chest pain with activity, Denies leg edema, Denies lightheadedness, Denies Loss of Consciousness, Denies palpitations and Denies dyspnea on exertion Respiratory: Respiratory: Reports no additional respiratory complaints and Denies dyspnea on exertion Gastrointestinal: Gastrointestinal: Reports abdominal pain Genitourinary: Genitourinary: Reports no additional female genitourinary complaints Musculoskeletal: Musculoskeletal: Reports no additional musculoskeletal complaints Integumentary/Breasts: Skin/Breast: Reports system reviewed and no additional complaints, except as docu Neurologic: Reports system reviewed and no additional complaints, except as documented Psychiatric: Psychiatric: Reports no additional psychiatric complaints Endocrine: Endocrine: Reports no additional endocrine complaints and Denies palpitations Hematologic/Lymphatic: Hematologic/Lymphatic: Reports no additional hematologic/lymphatic complaints Allergic/Immunologic: Allergic/Immunologic: Reports no additional allergic/immunologic complaints [facility] Past Medical History Medical History CAD (coronary artery disease) Diabetes Factor II deficiency Surgical History Surgical History Gastric bypass status for obesity Social History Social History Patient Tobacco Use Status: Former Tobacco user Advance Directives: Yes Advance Directives Information Provided: Yes Advance Directives on File: No service: No Meds Allergies Allergy/AdvReac Type Severity Reaction Status Date / Time levofloxacin [From LEVAQUIN] Allergy Mild RASH Verified 08/11/21 09:22 Penicillins [PCN] Allergy Mild UNKNOWN Verified 08/11/21 09:22 sulfur Allergy Unknown Rash Verified 08/11/21 09:22 Active Medications: Current Medications Brimonidine Tartrate (Brimonidine Tartrate 0.2% Oph 5 Ml Bottle) 1 drop EYE- BOTH TID [facility] Last Admin: 08/12/21 09:08 Dose: 1 drop Documented by: Dextrose (Dextrose 50 % 25 Gm/50 Ml Syringe) 25 gm IVPUSH Q15M PRN; Protocol PRN Reason: per Hypoglycemia Standing Ord. Dorzolamide/Timolol (Dorzolamide/Timolo 2.23%/0.68% 10 Ml Drbtl) 1 drop EYE- RIGHT BID [facility] Last Admin: 08/12/21 00:56 Dose: 1 drop Documented by: Enoxaparin Sodium (Enoxaparin Sodium 40 Mg/0.4 Ml Syringe) 40 mg SUBCUT Q24H [facility] Last Admin: 08/12/21 09:02 Dose: 40 mg Documented by: Glucose (Glucose Gel 15 Gm Gel..Gram.) 15 gm PO Q15M PRN; Protocol PRN Reason: per Hypoglycemia Standing Ord. Hydromorphone HCl (Hydromorphone Hcl 1 Mg/Ml Syringe) 0.5 mg IVPUSH Q3H PRN; Protocol PRN Reason: Pain, Severe (Pain Scale 7-10) Cefepime HCl 2 gm/ Sodium (Chloride) 50 mls @ 100 mls/hr IV Q12H [facility] Last Infusion: 08/12/21 02:59 Dose: Infused Documented by: Metronidazole (Flagyl) 500 mg in 100 mls @ 100 mls/hr IV Q6H [facility] Last Infusion: 08/12/21 10:16 Dose: Infused Documented by: Acetaminophen (Ofirmev) 1,000 mg in 100 mls @ 400 mls/hr IV Q6H [facility] Last Infusion: 08/12/21 10:26 Dose: Infused Documented by: Lactated Ringer's (Lr) 1,000 mls @ 100 mls/hr IVCONT .Q10H [facility] Last Admin: 08/12/21 09:07 Dose: 100 mls/hr Documented by: Insulin Glargine (Insulin Glargine,Hum.Rec.Anlog 100 Unit/Ml 10 Ml Vial) 65 unit SUBCUT BEDTIME [facility] Last Admin: 08/11/21 22:15 Dose: 65 unit Documented by: Latanoprost (Latanoprost 0.005 % Ophth Radha 2.5 Ml Drops) 1 drop EYE-RIGHT BEDTIME [facility] Last Admin: 08/12/21 00:55 Dose: 1 drop Documented by: Ondansetron HCl (Ondansetron Hcl 4 Mg/2 Ml Vial) 4 mg IVPUSH Q8H PRN PRN Reason: Nausea and Vomiting Oxycodone HCl (Oxycodone Hcl Immed Release 5 Mg Tablet) 5 mg PO Q6H PRN PRN Reason: Pain, Moderate (Pain Scale 4-6 Pharmacy Consult (Consult Rx Perform Med Rec) 1 each MISCELLANE ONCE PRN PRN Reason: Consult order Sodium Chloride (0.9 % Sodium Chloride Flush 3 Ml Syringe) 3 ml IVFLUSH QSHIFT [facility] Last Admin: 08/12/21 08:53 Dose: Not Given Documented by: Zolpidem Tartrate (Zolpidem Tartrate 5 Mg Tablet) 5 mg PO BEDTIME PRN PRN Reason: Insomnia Home Medications Medication Instructions Recorded Confirmed Last Taken Type brimonidine 0.2 % eye drops 1 drp OPHTHALMIC (EYE) TID 08/11/21 08/11/21 08/11/21 History dorzolamide 22.3 mg-timolol 6.8 1 drp OPHTHALMIC-RIGHT BID 08/11/21 08/11/21 08/11/21 History mg/mL eye drops insulin glargine 100 unit/mL (3 65 unit SUBCUT BEDTIME 08/11/21 08/11/21 08/10/21 History mL) subcutaneous pen (Lantus Solostar U-100 Insulin) latanoprost 0.005 % eye drops 1 drp OPHTHALMIC-RIGHT BEDTIME 08/11/21 08/11/21 08/11/21 History Physical Exam Vital Signs: Vital Signs: Last Vital Signs Temp 97.7 F 08/12/21 07:35 Pulse 72 08/12/21 07:35 Resp 14 08/12/21 07:35 BP 153/46 H 08/12/21 07:35 Pulse Ox 97 08/12/21 07:35 BMI result Body Mass Index 33.3 Const: General: cooperative, comfortable, no acute distress, alert and awake Nutritional Appearance: obese Orientation/consciousness: patient oriented x3 HEENT: Head: Yes normocephalic and Yes atraumatic Neck: Neck: Yes trachea midline, Yes supple and Yes no JVD Chest: Chest palpation & inspection: normal inspection of the chest Resp: Effort & Inspection: normal respiratory effort Auscultation: clear to auscultation bilaterally Cardio: Jugular venous distension: no JVD Palpation: normal PMI Rate: regular rate Rhythm: regular rhythm Heart sounds: S1 normal heart sound present, S2 normal heart sound present, no click, no gallops, no murmurs and no rubs GI: Auscultation: normal bowel sounds Skin: General skin exam: no rashes or lesions noted Neuro: General: patient oriented x3 and no focal motor deficits Extrem: General: Yes no clubbing, cyanosis or edema Objective Labs and Meds Result diagrams: 08/12/21 05:52 08/12/21 05:52 Lab results: Laboratory Results - last 24 hr 08/11/21 08/12/21 08/12/21 22:08 05:52 05:52 WBC 10.5 RBC 3.95 L Hgb 11.6 L Hct 34.9 L MCV 88.4 MCH 29.4 MCHC 33.2 RDW 12.7 Plt Count 254 MPV 12.1 Immature Gran % (Auto) 0.8 H Neut % (Auto) 77.8 H Lymph % (Auto) 12.2 L [place] % (Auto) 7.8 Eos % (Auto) 1.2 Baso % (Auto) 0.2 Lymph # (Auto) 1.3 [place] # (Auto) 0.8 Eos # (Auto) 0.1 Baso # (Auto) 0.0 Abs Immat Gran (auto) 0.08 H Absolute Neuts (auto) 8.1 Absolute Nucleated RBC 0.000 Nucleated RBC % (auto) 0.0 Sodium 136 Potassium 3.9 Chloride 101 Carbon Dioxide 26 Anion Gap 13 BUN 19 H Creatinine 0.74 Estim Creat Clear Calc 89.8 Estimated GFR > 60 POC Glucose 341 H Random Glucose 296 H Calcium 9.3 08/12/21 08/12/21 07:24 12:46 WBC RBC Hgb Hct MCV MCH MCHC RDW Plt Count MPV Immature Gran % (Auto) Neut % (Auto) Lymph % (Auto) [place] % (Auto) Eos % (Auto) Baso % (Auto) Lymph # (Auto) [place] # (Auto) Eos # (Auto) Baso # (Auto) Abs Immat Gran (auto) Absolute Neuts (auto) Absolute Nucleated RBC Nucleated RBC % (auto) Sodium Potassium Chloride Carbon Dioxide Anion Gap BUN Creatinine Estim Creat Clear Calc Estimated GFR POC Glucose 278 H 238 H Random Glucose Calcium EKG shows normal sinus rhythm with 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 Assessment and Plan (1) Preoperative cardiovascular examination: Status: Acute Preoperative cardiovascular risk stratification in a middle-aged woman with prior history of myocardial infarction could have been stress-induced cardiomyopathy. She did not receive any intervention as per her at the time of cardiac catheterization 3 years ago. Details of her cardiac history not completely available at this point time. Will obtain this in the power barker operator tomorrow from [facility]. However since then she has remained fairly active in her day-to-day activity and has more than 4 Mets of physical activity. She has to undergo surgical intervention for acute cholecystitis. She has had no current cardiac symptoms and no signs of myocardial ischemia. At this point time she is optimized to undergo this intermediate risk surgery with low to inte rmediate risk for perioperative cardiovascular morbidity mortality. However like to review her old data prior to her undergoing surgery. This will be done in power barker operator hours. At this point time proceed with medical/surgical therapy as planned. Will sign of the case. Thank you for allowing me to partake in her care Procedures Date of Service Date of Service: 08/12/21
[2021-08-12 17:02] LABS: Glucose, Whole Blood 204 mg/dL (60-115)
[2021-08-12 20:36] LABS: Glucose, Whole Blood 212 mg/dL (60-115)
--- NOTE | 2021-08-12 20:38 | PC.NURSE ---
Report called to Bashir MURCIA
[2021-08-12] MEDS: oxyCODONE HCl Immed Release 5 MG TABLET PO (20:42)
[2021-08-13] MEDS: metroNIDAZOLE/NS 500 MG/100 ML PIGGYBACK 100 MG IV ×4 (02:12→21:57)
[2021-08-13] MEDS: cefEPime HCl 2 GM in 0.9 % Sodium Chloride 50 ML IV ×2 (02:19→16:35)
[2021-08-13 03:23] VITALS: BP 119/58; PULSE 89; RESP 15; TEMP 36.3; O2SAT 92
[2021-08-13 05:50] LABS: Hematocrit 34.6 % (37.0-47.0); Hemoglobin 11.3 g/dl (12.0-16.0); Mean Corpuscular HGB Conc 32.7 g/dl (31.0-35.0); Mean Corpuscular Hemoglobin 29.1 pg (27.0-33.0); Mean Corpuscular Volume 89.2 fL (80.0-98.0); Mean Platelet Volume 11.4 fL (9.4-12.3); Platelet Count 287 X10*3/uL (160-400); Red Blood Count 3.88 X10*6/uL (4.20-5.50); Red Cell Distribution Width 12.7 % (11.0-16.0); White Blood Count 15.3 X10*3/uL (4.8-10.8)
[2021-08-13 05:59] LABS: INTERNATIONAL NORM RATIO 1.2 (0.9-1.1); Prothrombin Time 13.4 SEC (9.9-13.0)
[2021-08-13] MEDS: Lactated Ringers 1,000 ML 100 ML IVCONT ×2 (06:06→16:33)
[2021-08-13 06:10] LABS: Anion Gap 14 (12-20); Blood Urea Nitrogen 21 mg/dL (9-16); Calcium 9.1 mg/dL (8.4-10.2); Carbon Dioxide 26 mmol/L (22-29); Chloride 103 mmol/L (96-108); Estimated Glomerular Filt Rate > 60; Glucose Random 322 mg/dL (60-115); Potassium 3.9 mmol/L (3.3-5.1); Sodium 139 mmol/L (135-145)
[2021-08-13 07:30] LABS: Glucose, Whole Blood 280 mg/dL (60-115)
--- NOTE | 2021-08-13 07:46 | P.CONAN_ITS ---
[facility] Active Problems Active Problems: All Active Problems (Updated 08/12/21 @ 14:31 by Jerome Nino MD) Preoperative cardiovascular examination (Acute) Diabetes (Acute) Factor II deficiency (Acute) CAD (coronary artery disease) (Acute) Acute cholecystitis (Acute) Past Medical History Medical History CAD (coronary artery disease) Diabetes Factor II deficiency Functional capacity: independent ambulation Patient : No Family History Family history of problems with anesthesia: No Surgical History Surgical History Gastric bypass status for obesity History of Problems with Anesthesia: No Social History Social History Household Members: Spouse Housing: House Unable to assess alcohol history related to: Unknown Patient Tobacco Use Status: Former Tobacco user Second Hand Smoke Exposure: No Advance Directives Date on File: 08/12/21 service: No Meds Allergies Allergy/AdvReac Type Severity Reaction Status Date / Time levofloxacin [From LEVAQUIN] Allergy Mild RASH Verified 08/11/21 09:22 Penicillins [PCN] Allergy Mild UNKNOWN Verified 08/11/21 09:22 sulfur Allergy Unknown Rash Verified 08/11/21 09:22 Active Medications: Current Medications Brimonidine Tartrate (Brimonidine Tartrate 0.2% Oph 5 Ml Bottle) 1 drop EYE- BOTH TID [facility] Last Admin: 08/12/21 20:43 Dose: 1 drop Documented by: Dextrose (Dextrose 50 % 25 Gm/50 Ml Syringe) 25 gm IVPUSH Q15M PRN; Protocol PRN Reason: per Hypoglycemia Standing Ord. Dorzolamide/Timolol (Dorzolamide/Timolo 2.23%/0.68% 10 Ml Drbtl) 1 drop EYE- RIGHT BID [facility] Last Admin: 08/12/21 20:43 Dose: 1 drop Documented by: Enoxaparin Sodium (Enoxaparin Sodium 40 Mg/0.4 Ml Syringe) 40 mg SUBCUT Q24H [facility] Last Admin: 08/12/21 09:02 Dose: 40 mg Documented by: Glucose (Glucose Gel 15 Gm Gel..Gram.) 15 gm PO Q15M PRN; Protocol PRN Reason: per Hypoglycemia Standing Ord. Hydromorphone HCl (Hydromorphone Hcl 1 Mg/Ml Syringe) 0.5 mg IVPUSH Q3H PRN; Protocol PRN Reason: Pain, Severe (Pain Scale 7-10) Cefepime HCl 2 gm/ Sodium (Chloride) 50 mls @ 100 mls/hr IV Q12H [facility] Last Infusion: 08/13/21 05:24 Dose: Infused Documented by: Metronidazole (Flagyl) 500 mg in 100 mls @ 100 mls/hr IV Q6H [facility] Last Infusion: 08/13/21 03:37 Dose: Infused Documented by: Lactated Ringer's (Lr) 1,000 mls @ 100 mls/hr IVCONT .Q10H [facility] Last Admin: 08/13/21 06:06 Dose: 100 mls/hr Documented by: Insulin Glargine (Insulin Glargine,Hum.Rec.Anlog 100 Unit/Ml 10 Ml Vial) 65 unit SUBCUT BEDTIME [facility] Last Admin: 08/12/21 20:52 Dose: Not Given Documented by: Latanoprost (Latanoprost 0.005 % Ophth Radha 2.5 Ml Drops) 1 drop EYE-RIGHT BEDTIME [facility] Last Admin: 08/12/21 20:43 Dose: 1 drop Documented by: Ondansetron HCl (Ondansetron Hcl 4 Mg/2 Ml Vial) 4 mg IVPUSH Q8H PRN PRN Reason: Nausea and Vomiting Oxycodone HCl (Oxycodone Hcl Immed Release 5 Mg Tablet) 5 mg PO Q6H PRN PRN Reason: Pain, Moderate (Pain Scale 4-6 Last Admin: 08/12/21 20:42 Dose: 5 mg Documented by: Pharmacy Consult (Consult Rx Perform Med Rec) 1 each MISCELLANE ONCE PRN PRN Reason: Consult order Sodium Chloride (0.9 % Sodium Chloride Flush 3 Ml Syringe) 3 ml IVFLUSH QSHIFT [facility] Last Admin: 08/13/21 02:42 Dose: Not Given Documented by: Zolpidem Tartrate (Zolpidem Tartrate 5 Mg Tablet) 5 mg PO BEDTIME PRN PRN Reason: Insomnia Home Medications Medication Instructions Recorded Confirmed Last Taken Type brimonidine 0.2 % eye drops 1 drp OPHTHALMIC (EYE) TID 08/11/21 08/11/21 08/11/21 History dorzolamide 22.3 mg-timolol 6.8 1 drp OPHTHALMIC-RIGHT BID 08/11/21 08/11/21 08/11/21 History mg/mL eye drops insulin glargine 100 unit/mL (3 65 unit SUBCUT BEDTIME 08/11/21 08/11/21 08/10/21 History mL) subcutaneous pen (Lantus Solostar U-100 Insulin) latanoprost 0.005 % eye drops 1 drp OPHTHALMIC-RIGHT BEDTIME 08/11/21 08/11/21 08/11/21 History Exam Exam Date and Time: August 13, 2021 0746 Height,Weight and Vital Signs: Height 5 ft 6 in Weight 93.8 kg Last Vital Signs Temp 97.4 F 08/13/21 03:23 Pulse 89 08/13/21 03:23 Resp 15 08/13/21 03:23 BP 119/58 L 08/13/21 03:23 Pulse Ox 92 08/13/21 03:23 Pertinent Lab Results Pertinent Lab Results: Laboratory Tests 08/11/21 08/11/21 08/11/21 09:32 09:32 09:32 WBC 17.4 H RBC 4.57 Hgb 13.1 Hct 39.8 MCV 87.1 MCH 28.7 MCHC 32.9 RDW 13.0 Plt Count 296 MPV 11.8 Immature Gran % (Auto) 0.6 H Neut % (Auto) 84.6 H Lymph % (Auto) 8.2 L [place] % (Auto) 5.9 Eos % (Auto) 0.5 Baso % (Auto) 0.2 Lymph # (Auto) 1.4 [place] # (Auto) 1.0 Eos # (Auto) 0.1 Baso # (Auto) 0.0 Abs Immat Gran (auto) 0.11 H Absolute Neuts (auto) 14.7 H Absolute Nucleated RBC 0.000 Nucleated RBC % (auto) 0.0 PT INR Sodium 133 L Potassium 4.5 Chloride 96 Carbon Dioxide 26 Anion Gap 16 BUN 24 H Creatinine 0.95 Estim Creat Clear Calc 69.9 Estimated GFR 59 POC Glucose Random Glucose 391 H* Lactic Acid Calcium 9.6 Total Bilirubin 1.1 H AST 18 ALT 19 Alkaline Phosphatase 123 H Total Protein 6.6 Albumin 3.6 Lipase 7 L Urine Color Urine Appearance Urine pH Ur Specific [place] Urine Protein Urine Glucose (UA) Urine Ketones Urine Blood Urine Nitrite Ur Leukocyte Esterase Urine RBC Urine WBC Ur Squamous Epith Cells Urine Bacteria Urine Mucus COVID-19 (FABIO) Negative COVID-19 Clin Com See Note Influenza Type A (DIANE) Influenza Type B (DIANE) Influenza A & B Note 08/11/21 08/11/21 08/11/21 09:32 09:56 13:15 WBC RBC Hgb Hct MCV MCH MCHC RDW Plt Count MPV Immature Gran % (Auto) Neut % (Auto) Lymph % (Auto) [place] % (Auto) Eos % (Auto) Baso % (Auto) Lymph # (Auto) [place] # (Auto) Eos # (Auto) Baso # (Auto) Abs Immat Gran (auto) Absolute Neuts (auto) Absolute Nucleated RBC Nucleated RBC % (auto) PT INR Sodium Potassium Chloride Carbon Dioxide Anion Gap BUN Creatinine Estim Creat Clear Calc Estimated GFR POC Glucose Random Glucose Lactic Acid 1.3 Calcium Total Bilirubin AST ALT Alkaline Phosphatase Total Protein Albumin Lipase Urine Color YELLOW Urine Appearance HAZY Urine pH 6.0 Ur Specific [place] 1.020 Urine Protein 1+ H Urine Glucose (UA) >=1000 H Urine Ketones 15 Urine Blood TRACE Urine Nitrite NEG Ur Leukocyte Esterase NEG Urine RBC 1-4 Urine WBC 0-2 Ur Squamous Epith Cells 1+ Urine Bacteria NONE Urine Mucus TRACE COVID-19 (FABIO) COVID-19 Clin Com Influenza Type A (DIANE) Negative Influenza Type B (DIANE) Negative Influenza A & B Note See Note 08/11/21 08/12/21 08/12/21 22:08 05:52 05:52 WBC 10.5 RBC 3.95 L Hgb 11.6 L Hct 34.9 L MCV 88.4 MCH 29.4 MCHC 33.2 RDW 12.7 Plt Count 254 MPV 12.1 Immature Gran % (Auto) 0.8 H Neut % (Auto) 77.8 H Lymph % (Auto) 12.2 L [place] % (Auto) 7.8 Eos % (Auto) 1.2 Baso % (Auto) 0.2 Lymph # (Auto) 1.3 [place] # (Auto) 0.8 Eos # (Auto) 0.1 Baso # (Auto) 0.0 Abs Immat Gran (auto) 0.08 H Absolute Neuts (auto) 8.1 Absolute Nucleated RBC 0.000 Nucleated RBC % (auto) 0.0 PT INR Sodium 136 Potassium 3.9 Chloride 101 Carbon Dioxide 26 Anion Gap 13 BUN 19 H Creatinine 0.74 Estim Creat Clear Calc 89.8 Estimated GFR > 60 POC Glucose 341 H Random Glucose 296 H Lactic Acid Calcium 9.3 Total Bilirubin AST ALT Alkaline Phosphatase Total Protein Albumin Lipase Urine Color Urine Appearance Urine pH Ur Specific [place] Urine Protein Urine Glucose (UA) Urine Ketones Urine Blood Urine Nitrite Ur Leukocyte Esterase Urine RBC Urine WBC Ur Squamous Epith Cells Urine Bacteria Urine Mucus COVID-19 (FABIO) COVID-19 Clin Com Influenza Type A (DIANE) Influenza Type B (DIANE) Influenza A & B Note 08/12/21 08/12/21 08/12/21 07:24 12:46 16:58 WBC RBC Hgb Hct MCV MCH MCHC RDW Plt Count MPV Immature Gran % (Auto) Neut % (Auto) Lymph % (Auto) [place] % (Auto) Eos % (Auto) Baso % (Auto) Lymph # (Auto) [place] # (Auto) Eos # (Auto) Baso # (Auto) Abs Immat Gran (auto) Absolute Neuts (auto) Absolute Nucleated RBC Nucleated RBC % (auto) PT INR Sodium Potassium Chloride Carbon Dioxide Anion Gap BUN Creatinine Estim Creat Clear Calc Estimated GFR POC Glucose 278 H 238 H 204 H Random Glucose Lactic Acid Calcium Total Bilirubin AST ALT Alkaline Phosphatase Total Protein Albumin Lipase Urine Color Urine Appearance Urine pH Ur Specific [place] Urine Protein Urine Glucose (UA) Urine Ketones Urine Blood Urine Nitrite Ur Leukocyte Esterase Urine RBC Urine WBC Ur Squamous Epith Cells Urine Bacteria Urine Mucus COVID-19 (FABIO) COVID-19 Clin Com Influenza Type A (DIANE) Influenza Type B (DIANE) Influenza A & B Note 08/12/21 08/13/21 08/13/21 20:33 05:20 05:20 WBC 15.3 H RBC 3.88 L Hgb 11.3 L Hct 34.6 L MCV 89.2 MCH 29.1 MCHC 32.7 RDW 12.7 Plt Count 287 MPV 11.4 Immature Gran % (Auto) Neut % (Auto) Lymph % (Auto) [place] % (Auto) Eos % (Auto) Baso % (Auto) Lymph # (Auto) [place] # (Auto) Eos # (Auto) Baso # (Auto) Abs Immat Gran (auto) Absolute Neuts (auto) Absolute Nucleated RBC 0.000 Nucleated RBC % (auto) 0.0 PT 13.4 H INR 1.2 H Sodium Potassium Chloride Carbon Dioxide Anion Gap BUN Creatinine Estim Creat Clear Calc Estimated GFR POC Glucose 212 H Random Glucose Lactic Acid Calcium Total Bilirubin AST ALT Alkaline Phosphatase Total Protein Albumin Lipase Urine Color Urine Appearance Urine pH Ur Specific [place] Urine Protein Urine Glucose (UA) Urine Ketones Urine Blood Urine Nitrite Ur Leukocyte Esterase Urine RBC Urine WBC Ur Squamous Epith Cells Urine Bacteria Urine Mucus COVID-19 (FABIO) COVID-19 Clin Com Influenza Type A (DIANE) Influenza Type B (DIANE) Influenza A & B Note 08/13/21 08/13/21 05:20 07:20 WBC RBC Hgb Hct MCV MCH MCHC RDW Plt Count MPV Immature Gran % (Auto) Neut % (Auto) Lymph % (Auto) [place] % (Auto) Eos % (Auto) Baso % (Auto) Lymph # (Auto) [place] # (Auto) Eos # (Auto) Baso # (Auto) Abs Immat Gran (auto) Absolute Neuts (auto) Absolute Nucleated RBC Nucleated RBC % (auto) PT INR Sodium 139 Potassium 3.9 Chloride 103 Carbon Dioxide 26 Anion Gap 14 BUN 21 H Creatinine 0.82 Estim Creat Clear Calc 81.0 Estimated GFR > 60 POC Glucose 280 H Random Glucose 322 H Lactic Acid Calcium 9.1 Total Bilirubin AST ALT Alkaline Phosphatase Total Protein Albumin Lipase Urine Color Urine Appearance Urine pH Ur Specific [place] Urine Protein Urine Glucose (UA) Urine Ketones Urine Blood Urine Nitrite Ur Leukocyte Esterase Urine RBC Urine WBC Ur Squamous Epith Cells Urine Bacteria Urine Mucus COVID-19 (FABIO) COVID-19 Clin Com Influenza Type A (DIANE) Influenza Type B (DIANE) Influenza A & B Note Assessment and Plan Final Anesthetic Review Family History of Problems with Anesthesia: No History of Problems with Anesthesia: No
[2021-08-13 08:20] LABS: Glucose, Whole Blood 307 mg/dL (60-115)
--- NOTE | 2021-08-13 08:28 | PM.EVENT ---
Event Note Date of Service: 08/13/21 Event Note: Reviewed patient's cardiac catheterization from 2019 when she had presented for NSTEMI. This has revealed severe three-vessel disease including occluded PDA which was a her culprit vessel. She was treated medically at that point time. However on follow-up notes it is mentioned that she was noncompliant with her medications as prescribed. She has not been taking any medication including aspirin or statins in the last 3 years. She is definitely at high risk for progressive coronary artery disease and although she has mention that she does not have that many symptoms I think this changes her risk profile for surgery. She will need to be worked up prior to any noncardiac surgery unless the surgery is considered urgent/emergent. Will follow with you
[2021-08-13] MEDS: Insulin Lispro 100 UNIT/ML 3 ML VIAL SUBCUT ×4 (09:28→21:58)
[2021-08-13] MEDS: 0.9 % Sodium Chloride Flush 3 ML SYRINGE IVFLUSH ×2 (09:29→16:37)
[2021-08-13] MEDS: Brimonidine Tartrate 0.2% Oph 5 ML BOTTLE 1 DROP EYE-BOTH ×3 (09:31→19:48)
[2021-08-13] MEDS: Dorzolamide/Timolo 2.23%/0.68% 10 ML DRBTL 1 DROP EYE-RIGHT ×2 (09:31→19:50)
--- NOTE | 2021-08-13 09:46 | P.PNGS_ITS ---
Subjective Subjective Date of Service: 08/13/21 Interval history: Feels better overall this morning. Denies any abd pain. Physical Exam Vital Signs: Vital Signs: Last Vital Signs Temp 97.4 F 08/13/21 03:23 Pulse 89 08/13/21 03:23 Resp 15 08/13/21 03:23 BP 119/58 L 08/13/21 03:23 Pulse Ox 92 08/13/21 03:23 BMI result Body Mass Index 33.3 Const: General: comfortable, no acute distress and alert Orientation/consciousness: patient oriented x3 Resp: Effort & Inspection: normal respiratory effort GI: Inspection: No distended and Yes obesity Palpation (GI): Soft to palpation, Tenderness to palpation present (GI) in the RUQ (to deep palpation); Negative for Allison's sign negative, no guarding and not rigid Percussion: Yes normal to percussion Skin: General skin exam: no rashes or lesions noted Neuro: General: patient oriented x3 Objective Data Active Medications Brimonidine Tartrate (Brimonidine Tartrate 0.2% Oph 5 Ml Bottle) 1 drop EYE- BOTH TID [facility] Last Admin: 08/13/21 09:31 Dose: 1 drop Documented by: TASIA Dextrose (Dextrose 50 % 25 Gm/50 Ml Syringe) 25 gm IVPUSH Q15M PRN; Protocol PRN Reason: per Hypoglycemia Standing Ord. Dextrose (Dextrose 50 % 25 Gm/50 Ml Syringe) 25 gm IVPUSH Q15M PRN; Protocol PRN Reason: per Hypoglycemia Standing Ord. Dorzolamide/Timolol (Dorzolamide/Timolo 2.23%/0.68% 10 Ml Drbtl) 1 drop EYE- RIGHT BID [facility] Last Admin: 08/13/21 09:31 Dose: 1 drop Documented by: TASIA Enoxaparin Sodium (Enoxaparin Sodium 40 Mg/0.4 Ml Syringe) 40 mg SUBCUT Q24H [facility] Last Admin: 08/13/21 09:24 Dose: Not Given Documented by: TASIA Non-Admin Reason: PEROP Glucose (Glucose Gel 15 Gm Gel..Gram.) 15 gm PO Q15M PRN; Protocol PRN Reason: per Hypoglycemia Standing Ord. Glucose (Glucose Gel 15 Gm Gel..Gram.) 15 gm PO Q15M PRN; Protocol PRN Reason: per Hypoglycemia Standing Ord. Hydromorphone HCl (Hydromorphone Hcl 1 Mg/Ml Syringe) 0.5 mg IVPUSH Q3H PRN; Protocol PRN Reason: Pain, Severe (Pain Scale 7-10) Cefepime HCl 2 gm/ Sodium (Chloride) 50 mls @ 100 mls/hr IV Q12H [facility] Last Infusion: 08/13/21 05:24 Dose: 0 mls/hr Documented by: LUKE Metronidazole (Flagyl) 500 mg in 100 mls @ 100 mls/hr IV Q6H [facility] Last Infusion: 08/13/21 03:37 Dose: 0 mls/hr Documented by: LUKE Lactated Ringer's (Lr) 1,000 mls @ 100 mls/hr IVCONT .Q10H [facility] Last Admin: 08/13/21 06:06 Dose: 100 mls/hr Documented by: LUKE Insulin Glargine (Insulin Glargine,Hum.Rec.Anlog 100 Unit/Ml 10 Ml Vial) 65 unit SUBCUT BEDTIME [facility] Last Admin: 08/12/21 20:52 Dose: Not Given Documented by: SHIRA Non-Admin Reason: NPO Insulin Human Lispro (Insulin Lispro 100 Unit/Ml 3 Ml Vial) 0 unit SUBCUT QIDACHS [facility]; Protocol Last Admin: 08/13/21 09:28 Dose: 10 unit Documented by: TASIA Comments: TO GIVE 10 UNITS PER ANESTHESIA. Latanoprost (Latanoprost 0.005 % Ophth Radha 2.5 Ml Drops) 1 drop EYE-RIGHT BEDTIME [facility] Last Admin: 08/12/21 20:43 Dose: 1 drop Documented by: SHIRA Ondansetron HCl (Ondansetron Hcl 4 Mg/2 Ml Vial) 4 mg IVPUSH Q8H PRN PRN Reason: Nausea and Vomiting Oxycodone HCl (Oxycodone Hcl Immed Release 5 Mg Tablet) 5 mg PO Q6H PRN PRN Reason: Pain, Moderate (Pain Scale 4-6 Last Admin: 08/12/21 20:42 Dose: 5 mg Documented by: SHIRA Pharmacy Consult (Consult Rx Perform Med Rec) 1 each MISCELLANE ONCE PRN PRN Reason: Consult order Sodium Chloride (0.9 % Sodium Chloride Flush 3 Ml Syringe) 3 ml IVFLUSH QSHIFT [facility] Last Admin: 08/13/21 09:29 Dose: 3 ml Documented by: TASIA Zolpidem Tartrate (Zolpidem Tartrate 5 Mg Tablet) 5 mg PO BEDTIME PRN PRN Reason: Insomnia Labs CBC & Chem 7: 08/13/21 05:20 08/13/21 05:20 Labs: Laboratory Results - last 24 hr 08/12/21 08/12/21 08/12/21 12:46 16:58 20:33 MCV MCH MCHC RDW Plt Count MPV Absolute Nucleated RBC Nucleated RBC % (auto) PT INR Anion Gap Estim Creat Clear Calc Estimated GFR POC Glucose 238 H 204 H 212 H Random Glucose Calcium 08/13/21 08/13/21 08/13/21 05:20 05:20 05:20 MCV 89.2 MCH 29.1 MCHC 32.7 RDW 12.7 Plt Count 287 MPV 11.4 Absolute Nucleated RBC 0.000 Nucleated RBC % (auto) 0.0 PT 13.4 H INR 1.2 H Anion Gap 14 Estim Creat Clear Calc 81.0 Estimated GFR > 60 POC Glucose Random Glucose 322 H Calcium 9.1 08/13/21 08/13/21 07:20 08:16 MCV MCH MCHC RDW Plt Count MPV Absolute Nucleated RBC Nucleated RBC % (auto) PT INR Anion Gap Estim Creat Clear Calc Estimated GFR POC Glucose 280 H 307 H Random Glucose Calcium Microbiology Microbiology Results: Microbiology 08/11/21 13:24 Blood Culture - Preliminary Blood - Venous No growth after 24 hours. 08/11/21 13:15 Blood Culture - Preliminary Blood - Venous No growth after 24 hours. Procedures Date of Service Date of Service: 08/13/21 Progress Note: A&P Assessment and plan (1) Acute cholecystitis: Status: Acute (2) CAD (coronary artery disease): Status: Acute (3) Factor II deficiency: Status: Acute Plan 65 year old female with PMH of diabetes, CAD, factor II deficiency, admitted with acute cholecysititis. Lap CCY planned for today however seen by cardiology pre op and deemed high risk for progressive coronary artery disease and wanted work up prior to any non emergent noncardiac surgery. She is feeling better with IV abx and therefore will continue supportive management for now. Will advance to clear liquids. Cont IV abx. Will advance to low fat diet if tolerating clears and if tolerates without recurrent pain, stable for d/c to home with plan for outpatient cholecystectomy once cleared by cardiology. Repeat WBC count in AM as it is up this morning. Heme/onc consult for for factor II deficiency. Time Spent With Patient Time: Total time spent is greater than 50% in coordination of care (as documented) at patient's floor/unit and/or counseling patient: Quality Stroke Does the patient have a stroke diagnosis?: No VTE Prior VTE?: No VTE Risk Level:: Surgical - moderate VTE Device Contraindication: N/A - Device Ordered VTE Drug Contraindication: Treatment Not Indicated
--- NOTE | 2021-08-13 10:31 | HO.PM.IMPN ---
Subjective Subjective Date of Service: 08/13/21 Review of Systems Follow up consultation, acute diane No pain, nausea or vomiting Physical Exam Vital Signs: Vital Signs: Last Vital Signs Temp 97.4 F 08/13/21 03:23 Pulse 89 08/13/21 03:23 Resp 15 08/13/21 03:23 BP 119/58 L 08/13/21 03:23 Pulse Ox 92 08/13/21 03:23 BMI result Body Mass Index 33.3 Appearing in no acute distress lung sounds are clear to auscultation heart regular rate rhythm, clear S1, S2 positive bowel sounds, abdomen is soft, nontender neuro patient is alert x3, no focal deficits Objective Data Active Medications Brimonidine Tartrate (Brimonidine Tartrate 0.2% Oph 5 Ml Bottle) 1 drop EYE-BOTH TID [facility] Last Admin: 08/13/21 09:31 Dose: 1 drop Documented by: TASIA Dextrose (Dextrose 50 % 25 Gm/50 Ml Syringe) 25 gm IVPUSH Q15M PRN; Protocol PRN Reason: per Hypoglycemia Standing Ord. Dextrose (Dextrose 50 % 25 Gm/50 Ml Syringe) 25 gm IVPUSH Q15M PRN; Protocol PRN Reason: per Hypoglycemia Standing Ord. Dorzolamide/Timolol (Dorzolamide/Timolo 2.23%/0.68% 10 Ml Drbtl) 1 drop EYE-RIGHT BID [facility] Last Admin: 08/13/21 09:31 Dose: 1 drop Documented by: TASIA Enoxaparin Sodium (Enoxaparin Sodium 40 Mg/0.4 Ml Syringe) 40 mg SUBCUT Q24H [facility] Last Admin: 08/13/21 09:24 Dose: Not Given Documented by: TASIA Non-Admin Reason: PEROP Glucose (Glucose Gel 15 Gm Gel..Gram.) 15 gm PO Q15M PRN; Protocol PRN Reason: per Hypoglycemia Standing Ord. Glucose (Glucose Gel 15 Gm Gel..Gram.) 15 gm PO Q15M PRN; Protocol PRN Reason: per Hypoglycemia Standing Ord. Hydromorphone HCl (Hydromorphone Hcl 1 Mg/Ml Syringe) 0.5 mg IVPUSH Q3H PRN; Protocol PRN Reason: Pain, Severe (Pain Scale 7-10) Cefepime HCl 2 gm/ Sodium (Chloride) 50 mls @ 100 mls/hr IV Q12H [facility] Last Infusion: 08/13/21 05:24 Dose: 0 mls/hr Documented by: LUKE Metronidazole (Flagyl) 500 mg in 100 mls @ 100 mls/hr IV Q6H [facility] Last Admin: 08/13/21 09:48 Dose: 100 mls/hr Documented by: TASIA Lactated Ringer's (Lr) 1,000 mls @ 100 mls/hr IVCONT .Q10H [facility] Last Admin: 08/13/21 06:06 Dose: 100 mls/hr Documented by: LUKE Insulin Glargine (Insulin Glargine,Hum.Rec.Anlog 100 Unit/Ml 10 Ml Vial) 65 unit SUBCUT BEDTIME [facility] Last Admin: 08/12/21 20:52 Dose: Not Given Documented by: SHIRA Non-Admin Reason: NPO Insulin Human Lispro (Insulin Lispro 100 Unit/Ml 3 Ml Vial) 0 unit SUBCUT QIDACHS [facility]; Protocol Last Admin: 08/13/21 09:28 Dose: 10 unit Documented by: TASIA Comments: TO GIVE 10 UNITS PER ANESTHESIA. Latanoprost (Latanoprost 0.005 % Ophth Radha 2.5 Ml Drops) 1 drop EYE-RIGHT BEDTIME [facility] Last Admin: 08/12/21 20:43 Dose: 1 drop Documented by: SHIRA Ondansetron HCl (Ondansetron Hcl 4 Mg/2 Ml Vial) 4 mg IVPUSH Q8H PRN PRN Reason: Nausea and Vomiting Oxycodone HCl (Oxycodone Hcl Immed Release 5 Mg Tablet) 5 mg PO Q6H PRN PRN Reason: Pain, Moderate (Pain Scale 4-6 Last Admin: 08/12/21 20:42 Dose: 5 mg Documented by: SHIRA Pharmacy Consult (Consult Rx Perform Med Rec) 1 each MISCELLANE ONCE PRN PRN Reason: Consult order Sodium Chloride (0.9 % Sodium Chloride Flush 3 Ml Syringe) 3 ml IVFLUSH QSHIFT [facility] Last Admin: 08/13/21 09:29 Dose: 3 ml Documented by: TASIA Zolpidem Tartrate (Zolpidem Tartrate 5 Mg Tablet) 5 mg PO BEDTIME PRN PRN Reason: Insomnia Labs CBC & Chem 7: 08/13/21 05:20 08/13/21 05:20 Labs: Laboratory Results - last 24 hr 08/12/21 08/12/21 08/12/21 12:46 16:58 20:33 MCV MCH MCHC RDW Plt Count MPV Absolute Nucleated RBC Nucleated RBC % (auto) PT INR Anion Gap Estim Creat Clear Calc Estimated GFR POC Glucose 238 H 204 H 212 H Random Glucose Calcium 08/13/21 08/13/21 08/13/21 05:20 05:20 05:20 MCV 89.2 MCH 29.1 MCHC 32.7 RDW 12.7 Plt Count 287 MPV 11.4 Absolute Nucleated RBC 0.000 Nucleated RBC % (auto) 0.0 PT 13.4 H INR 1.2 H Anion Gap 14 Estim Creat Clear Calc 81.0 Estimated GFR > 60 POC Glucose Random Glucose 322 H Calcium 9.1 08/13/21 08/13/21 07:20 08:16 MCV MCH MCHC RDW Plt Count MPV Absolute Nucleated RBC Nucleated RBC % (auto) PT INR Anion Gap Estim Creat Clear Calc Estimated GFR POC Glucose 280 H 307 H Random Glucose Calcium Microbiology Microbiology Results: Microbiology 08/11/21 13:24 Blood Culture - Preliminary Blood - Venous No growth after 24 hours. 08/11/21 13:15 Blood Culture - Preliminary Blood - Venous No growth after 24 hours. Assessment and Plan (1) Acute cholecystitis: Status: Acute Plan 65 year old women admitted by general surgery for acute cholecystitis Acute cholecystitis No surgical management at this time due to hx of cad and triple vessel disease with no follow up at this time it seems appropriate that she could be treated medically and if she needs to have the surgery at some point it should be after a thorough cardiac evaluation Pain management Leukocytosis Likely related to acute cholecystitis Diabetes mellitus Sliding scale, ADA diet Continue Lantus Hypertension Continue lisinopril Asthma Continue albuterol as needed Hx of CAD seen and evaluated by cardiology DVT prophylaxis as per surgical team Attending Dr. Martínez Full code Quality Stroke Does the patient have a stroke diagnosis?: No VTE Prior VTE?: No VTE Risk Level:: Surgical - moderate VTE Device Contraindication: N/A - Device Ordered VTE Drug Contraindication: Treatment Not Indicated
--- NOTE | 2021-08-13 10:47 | PM.PNCARD ---
Subjective Subjective Date of Service: 08/13/21 Interval history: Seen in follow-up regarding preoperative evaluation. Patient states that she is doing okay. No cardiac symptoms like chest pain or shortness of breath or in fact anything at all cardiac related. Even prior to hospitalization, she has not had any cardiac symptoms within limits of her activity although she does not do much and does not exercise. Some walking here and there. Otherwise, no regular Cardiology follow-up in the last 3 years. She has not been taking a medical regimen for CAD either. Review of Systems Review of Systems Yes all other systems are reviewed and are negative Constitutional: Reports as per HPI Eyes: Reports as per HPI Reports as per HPI Cardiovascular: Reports as per HPI, Denies acrocyanosis, Denies cool extremities, Denies chest pain, Denies leg edema, Denies lightheadedness, Denies palpitations and Denies dyspnea Respiratory: Reports as per HPI, Reports no additional respiratory complaints and Denies dyspnea Gastrointestinal: Reports as per HPI and Reports no additional gastrointestinal complaints Genitourinary: Reports as per HPI Musculoskeletal: Reports no additional musculoskeletal complaints and Reports as per HPI Skin/Breast: Reports system reviewed and no additional complaints, except as docu Reports system reviewed and no additional complaints, except as documented and Reports as per HPI Psychiatric: Reports no additional psychiatric complaints and Reports as per HPI Endocrine: Reports no additional endocrine complaints, Reports as per HPI and Denies palpitations Hematologic/Lymphatic: Reports no additional hematologic/lymphatic complaints and Reports as per HPI Allergic/Immunologic: Reports no additional allergic/immunologic complaints and Reports as per HPI Physical Exam Vital Signs: Last Vital Signs Temp 97.4 F 08/13/21 03:23 Pulse 89 08/13/21 03:23 Resp 15 08/13/21 03:23 BP 119/58 L 08/13/21 03:23 Pulse Ox 92 08/13/21 03:23 BMI result Body Mass Index 33.3 Const General: comfortable and no acute distress Orientation/consciousness: patient oriented x3 HEENT Other: Unremarkable Head: Yes normal to inspection Neck Neck: Yes normal visual inspection Chest Chest palpation & inspection: normal inspection of the chest Resp Auscultation: clear to auscultation bilaterally Cardio Palpation: normal PMI Heart sounds: S1 normal heart sound present, S2 normal heart sound present, no gallops, Murmur heart sound present systolic early, II/ and at the right sternal border and no rubs GI Palpation (GI): Soft to palpation Back/Spine/Pelvis Other: unremarkable Skin General skin exam: no rashes or lesions noted Neuro General: patient oriented x3 Extrem General: Yes normal to inspection Psych Mental Status: mental status grossly normal Objective Labs and Meds Result diagrams: 08/13/21 05:20 08/13/21 05:20 Lab results: Laboratory Results - last 24 hr 08/12/21 08/12/21 08/12/21 12:46 16:58 20:33 WBC RBC Hgb Hct MCV MCH MCHC RDW Plt Count MPV Absolute Nucleated RBC Nucleated RBC % (auto) PT INR Sodium Potassium Chloride Carbon Dioxide Anion Gap BUN Creatinine Estim Creat Clear Calc Estimated GFR POC Glucose 238 H 204 H 212 H Random Glucose Calcium 08/13/21 08/13/21 08/13/21 05:20 05:20 05:20 WBC 15.3 H RBC 3.88 L Hgb 11.3 L Hct 34.6 L MCV 89.2 MCH 29.1 MCHC 32.7 RDW 12.7 Plt Count 287 MPV 11.4 Absolute Nucleated RBC 0.000 Nucleated RBC % (auto) 0.0 PT 13.4 H INR 1.2 H Sodium 139 Potassium 3.9 Chloride 103 Carbon Dioxide 26 Anion Gap 14 BUN 21 H Creatinine 0.82 Estim Creat Clear Calc 81.0 Estimated GFR > 60 POC Glucose Random Glucose 322 H Calcium 9.1 08/13/21 08/13/21 07:20 08:16 WBC RBC Hgb Hct MCV MCH MCHC RDW Plt Count MPV Absolute Nucleated RBC Nucleated RBC % (auto) PT INR Sodium Potassium Chloride Carbon Dioxide Anion Gap BUN Creatinine Estim Creat Clear Calc Estimated GFR POC Glucose 280 H 307 H Random Glucose Calcium Progress Note: A&P Assessment and plan (1) Preoperative cardiovascular examination: Status: Acute (2) Atherosclerotic cardiovascular disease: Status: Acute Plan Cardiac catheterization reviewed from 2019. She had three-vessel obstructive CAD. Left main was normal. She has significant disease in the LAD, 2nd obtuse marginal, right coronary artery. Distal RCA was occluded. Echocardiogram then with LVEF 55-60%, no wall motion abnormalities; grade 2 diastolic dysfunction; no significant valvular dysfunction. She was supposed to be on medical management but has not been very compliant and has not seen any window glass installer in a while. Based on the above information, she would be at high cardiac risk for gallbladder surgery. If able, treat medically. Echocardiogram for LV function assessment. Discussed with patient in detail and also with significant other at the bedside. Once acute issues resolve, will need aspirin and statins. Time Spent With Patient Time: Total time spent is greater than 50% in coordination of care (as documented) at patient's floor/unit and/or counseling patient: 35min Progress Note: Quality Stroke Does the patient have a stroke diagnosis?: No Procedures Date of Service Date of Service: 08/13/21
[2021-08-13 11:33] VITALS: BP 141/64; PULSE 75; RESP 18; TEMP 36.4; O2SAT 97
[2021-08-13 11:46] LABS: Glucose, Whole Blood 245 mg/dL (60-115)
--- NOTE | 2021-08-13 12:25 | PM.HEMONCPN ---
Medical Summary - Medical Summary Date of Service: 08/13/21 Chief complaint: Consult for: Family history of hypercoagulable state Medical Summary: DIAGNOSIS: FAMILY HISTORY OF PROTHROMBIN MUTATION. Interval History Interval history: 65-year-old lady who presented to the ER with abdominal pain after eating greasy food about a week ago. However today she felt weak and overall did not feel well. she describes her pain as isolated to the right upper quadrant area. She was seen by her primary care provider. An outpatient ultrasound from 08/11: Abnormal appearance of the gallbladder. Acute cholecystitis is within the differential. Prominent echogenic, avascular, nonshadowing material within the gallbladder is suspected to represent echogenic bile although a mass is within the differential although no color flow suggests against a mass. Clinical correlation is recommended. HIDA imaging may be warranted. Surgical consultation is also likely warranted. This did show some abnormalities of the gallbladder. It showed acute cholecystitis likely. HIDA scan from 08/11: Nonvisualization of the gallbladder would be compatible with obstruction of the cystic duct and would be compatible with acute cholecystitis, as suggested on the right upper quadrant ultrasound. CBC from 08/11: WBC 17.4, HGB 13.1, HCT 39.8, PLT 296. LFTs: 1./. Lipase is 7. She had improvement in her symptoms. PAST MEDICAL HISTORY: CAD (coronary artery disease) Diabetes Surgical History: Gastric bypass status for obesity FAMILY HISTORY: A brother has homozygous prothrombin [id number] mutation. Another brother likely had it however he has since passed. Social History Patient Tobacco Use Status: Former Tobacco user Review of Systems Review of Systems: Denies any recent fever chills or decrease in appetite. No headache no dizziness No chest pain or trouble breathing. She does complain of abdominal pain and nausea. No diarrhea. No dysuria or hematuria. Denies bony aches nor pain. No focal weakness. Denies depression. No skin rashes. She does have pruritus. Review of Systems - Constitutional Reports system reviewed and no additional complaints, except as documented, Reports fatigue, Reports fever(s), Reports weakness, Reports weight loss - Eyes Reports system reviewed and no additional complaints, except as documented - ENT Reports system reviewed and no additional complaints, except as documented - Cardiovascular Reports system reviewed and no additional complaints, except as documented - Respiratory Reports no additional respiratory complaints - Gastrointestinal Reports system reviewed and no additional complaints, except as documented - Genitourinary Reports no additional female genitourinary complaints - Musculoskeletal Reports system reviewed and no additional complaints, except as documented - Integumentary/Breasts Skin/Breast: Reports no additional skin complaints - Neurologic Reports system reviewed and no additional complaints, except as documented, Reports as per HPI, Denies dizziness, Denies headache(s), Denies numbness - Psychiatric Reports system reviewed and no additional complaints, except as documented - Endocrine Reports no additional endocrine complaints - Hematologic/Lymphatic Reports system reviewed and no additional complaints, except as documented - Allergic/Immunologic Reports system reviewed and no additional complaints, except as documented PMFSH Medical History: Medical History (Last Reviewed 08/14/21 @ 20:21 by Jyoti Lake PA-C) CAD (coronary artery disease) Diabetes Factor II deficiency Functional capacity: independent ambulation Patient : No Surgical History: Surgical History (Last Reviewed 08/14/21 @ 20:21 by Jyoti Lake PA-C) Gastric bypass status for obesity Social History: Social History (Last Reviewed 08/14/21 @ 20:21 by Jyoti Lake PA-C) Living Situation History: Household Members: Spouse Housing: House Alcohol History: Unable to assess alcohol history related to: Unknown Tobacco History: Patient Tobacco Use Status: Former Tobacco user Second Hand Smoke Exposure: No Advance Directives: Advance Directives Date on File: 08/12/21 Occupation Assessmet: service: No Oncology Screenings - ECOG Performance Status ECOG Performance Status: 0 Home Medications and Allergies Current Medications: Current Medications Brimonidine Tartrate (Brimonidine Tartrate 0.2% Oph 5 Ml Bottle) 1 drop EYE-BOTH TID [facility] Last Admin: 08/13/21 09:31 Dose: 1 drop Documented by: Dextrose (Dextrose 50 % 25 Gm/50 Ml Syringe) 25 gm IVPUSH Q15M PRN; Protocol PRN Reason: per Hypoglycemia Standing Ord. Dextrose (Dextrose 50 % 25 Gm/50 Ml Syringe) 25 gm IVPUSH Q15M PRN; Protocol PRN Reason: per Hypoglycemia Standing Ord. Dorzolamide/Timolol (Dorzolamide/Timolo 2.23%/0.68% 10 Ml Drbtl) 1 drop EYE-RIGHT BID [facility] Last Admin: 08/13/21 09:31 Dose: 1 drop Documented by: Enoxaparin Sodium (Enoxaparin Sodium 40 Mg/0.4 Ml Syringe) 40 mg SUBCUT Q24H [facility] Last Admin: 08/13/21 09:24 Dose: Not Given Documented by: Glucose (Glucose Gel 15 Gm Gel..Gram.) 15 gm PO Q15M PRN; Protocol PRN Reason: per Hypoglycemia Standing Ord. Glucose (Glucose Gel 15 Gm Gel..Gram.) 15 gm PO Q15M PRN; Protocol PRN Reason: per Hypoglycemia Standing Ord. Hydromorphone HCl (Hydromorphone Hcl 1 Mg/Ml Syringe) 0.5 mg IVPUSH Q3H PRN; Protocol PRN Reason: Pain, Severe (Pain Scale 7-10) Cefepime HCl 2 gm/ Sodium (Chloride) 50 mls @ 100 mls/hr IV Q12H [facility] Last Infusion: 08/13/21 05:24 Dose: Infused Documented by: Metronidazole (Flagyl) 500 mg in 100 mls @ 100 mls/hr IV Q6H [facility] Last Infusion: 08/13/21 11:07 Dose: Infused Documented by: Lactated Ringer's (Lr) 1,000 mls @ 100 mls/hr IVCONT .Q10H [facility] Last Admin: 08/13/21 06:06 Dose: 100 mls/hr Documented by: Insulin Glargine (Insulin Glargine,Hum.Rec.Anlog 100 Unit/Ml 10 Ml Vial) 65 unit SUBCUT BEDTIME [facility] Last Admin: 08/12/21 20:52 Dose: Not Given Documented by: Insulin Human Lispro (Insulin Lispro 100 Unit/Ml 3 Ml Vial) 0 unit SUBCUT QIDACHS [facility]; Protocol Last Admin: 08/13/21 09:28 Dose: 10 unit Documented by: Latanoprost (Latanoprost 0.005 % Ophth Radha 2.5 Ml Drops) 1 drop EYE-RIGHT BEDTIME [facility] Last Admin: 08/12/21 20:43 Dose: 1 drop Documented by: Ondansetron HCl (Ondansetron Hcl 4 Mg/2 Ml Vial) 4 mg IVPUSH Q8H PRN PRN Reason: Nausea and Vomiting Oxycodone HCl (Oxycodone Hcl Immed Release 5 Mg Tablet) 5 mg PO Q6H PRN PRN Reason: Pain, Moderate (Pain Scale 4-6 Last Admin: 08/12/21 20:42 Dose: 5 mg Documented by: Pharmacy Consult (Consult Rx Perform Med Rec) 1 each MISCELLANE ONCE PRN PRN Reason: Consult order Sodium Chloride (0.9 % Sodium Chloride Flush 3 Ml Syringe) 3 ml IVFLUSH QSHIFT [facility] Last Admin: 08/13/21 09:29 Dose: 3 ml Documented by: Zolpidem Tartrate (Zolpidem Tartrate 5 Mg Tablet) 5 mg PO BEDTIME PRN PRN Reason: Insomnia Home Medications Medication Instructions Recorded Confirmed Type brimonidine 0.2 % eye drops 1 drp OPHTHALMIC (EYE) TID 08/11/21 08/11/21 History dorzolamide 22.3 mg-timolol 6.8 1 drp OPHTHALMIC-RIGHT BID 08/11/21 08/11/21 History mg/mL eye drops insulin glargine 100 unit/mL (3 65 unit SUBCUT BEDTIME 08/11/21 08/11/21 History mL) subcutaneous pen (Lantus Solostar U-100 Insulin) latanoprost 0.005 % eye drops 1 drp OPHTHALMIC-RIGHT BEDTIME 08/11/21 08/11/21 History Allergies Allergy/AdvReac Type Severity Reaction Status Date / Time levofloxacin [From LEVAQUIN] Allergy Mild RASH Verified 08/11/21 09:22 Penicillins [PCN] Allergy Mild UNKNOWN Verified 08/11/21 09:22 sulfur Allergy Unknown Rash Verified 08/11/21 09:22 Exam Vital signs: Vital Signs Temp 97.5 F 08/13/21 11:33 Pulse 75 08/13/21 11:33 Resp 18 08/13/21 11:33 BP 141/64 H 08/13/21 11:33 Pulse Ox 97 08/13/21 11:33 Intake & Output 08/12/21 08/13/21 08/13/21 18:59 06:59 18:59 Intake Total 1350 / 3376.667 2026.667 / 3376.667 100 / 100 Balance 1350 / 3376.667 2026.667 / 3376.667 100 / 100 Intake: Intake, IV Amount 1350 / 3376.667 2026.667 / 3376.667 100 / 100 Acetaminophen 1,000 mg In 100 100 / 100 ml @ 400 mls/hr IV Q6H [facility] Rx#: [id number] cefEPime HCl 2 gm In 0.9 % 50 / 100 50 / 100 Sodium Chloride 50 ml @ 100 mls /hr IV Q12H [facility] Rx#:[id number] metroNIDAZOLE/NS 500 mg In 100 200 / 400 200 / 400 100 / 100 ml @ 100 mls/hr IV Q6H [facility] Rx#: [id number] Dextrose 5 % and Lactated Ring 1000 / 1000 1,000 ml @ 125 mls/hr IVCONT . Q8H [facility] Rx#:[id number] Lactated Ringers 1,000 ml @ 100 1776.667 / 1776.667 mls/hr IVCONT .Q10H [facility] Rx#: [id number] Other: NPO Yes Number of Unmeasured Voids 1 Urine Bathroom Last Bowel Movement 08/09/21 Weight 93.8 kg BMI result Body Mass Index 33.3 - Constitutional Present: no acute distress - Routine HEENT Exam Head: Present: normal inspection Eye: Present: normal appearance ENT: Present: mucous membranes moist - Routine Neck Exam Present: full ROM - Routine Respiratory Exam Present: CTAB - Routine Cardiovascular Exam Cardiovascular: Present: RRR, S1, S2 - Routine Abdominal Exam Present: soft, nontender - Routine Rectal Exam Patient deferred: digital exam - Routine Extremities Exam Present: nontender - Routine Back/Spine/Pelvis Exam Back/Spine: Present: full ROM - Routine Skin Exam Present: intact - Routine Neurological Exam Present: alert, oriented X3 - Routine Psychiatric Exam Present: normal affect Data - Labs CBC & Chem 7: 08/14/21 19:29 08/14/21 18:07 Labs: 08/11/21 NM hepatobiliary wo pharm Stat US abdomen limited Stat 08/11/21 09:32 COVID-19 ID NOW (Lopez) Stat Complete Blood Count Auto Diff Stat Comprehensive Met. Panel Stat Influenza A B2 ID NOW (Lopez) Stat Lipase Stat 08/11/21 13:15 Lactic Acid Stat 08/11/21 13:20 cefEPime HCl [Maxipime] 1 gm 0.9 % Sodium Chloride [Ns] 50 ml IV ONCE 08/11/21 13:23 NPO Diet 08/11/21 13:30 Acetaminophen [Ofirmev] 1,000 mg in 100 ml IV Q6H Dextrose 5 % and Lactated Ring [D5lr] 1,000 ml IVCONT 125 mls/hr 08/11/21 13:31 Transfer Order Routine 08/11/21 14:29 cefEPime HCl [Maxipime] 1 gm IV .STK-MED ONE 08/11/21 15:30 Acetaminophen [Ofirmev] 1,000 mg in 100 ml IV Q6H 08/11/21 Lunch NPO Diet 08/11/21 16:30 Insulin Lispro [Humalog] See Protocol SUBCUT QIDACHS 08/11/21 22:08 Glucose, Whole Blood Routine 08/12/21 ECG 12 lead EKG Stat 08/12/21 02:18 cefEPime HCl [Maxipime] 2 gm IV .STK-MED ONE 08/12/21 05:52 Basic Metabolic Panel AM Complete Blood Count Auto Diff AM 08/12/21 07:24 Glucose, Whole Blood Routine 08/12/21 08:47 EKG Documentation DIRECTED 08/12/21 12:46 Glucose, Whole Blood Routine 08/12/21 15:54 cefEPime HCl [Maxipime] 2 gm IV .STK-MED ONE 08/12/21 16:58 Glucose, Whole Blood Routine 08/12/21 20:33 Glucose, Whole Blood Routine 08/13/21 01:56 cefEPime HCl [Maxipime] 2 gm IV .STK-MED ONE 08/13/21 05:20 BMP [Basic Metabolic Panel] AM CBC NO DIFF [Complete Blood Count no Diff] AM Prothrombin Time INR AM 08/13/21 07:20 Glucose, Whole Blood Routine 08/13/21 07:41 Midazolam HCl/PF [Versed] 2 mg .ROUTE .STK-MED ONE 08/13/21 07:42 fentaNYL citrate/PF [Sublimaze] 100 mcg .ROUTE .STK-MED ONE 08/13/21 07:43 Lidocaine HCl 2 % MPF [Xylocaine 2 % MPF] 5 ml .ROUTE .STK-MED ONE Rocuronium [place] [Zemuron] 100 mg IV .STK-MED ONE Sugammadex Sodium [Bridion] 200 mg IVPUSH .STK-MED ONE dexAMETHasone sod phosphate [Decadron] 4 mg .ROUTE .STK-MED ONE ondansetron HCL [Zofran] 4 mg .ROUTE .STK-MED ONE propofoL [Diprivan] 200 mg IVPUSH .STK-MED ONE 08/13/21 08:16 Glucose, Whole Blood Routine 08/13/21 11:36 Glucose, Whole Blood Routine Laboratory Last Values WBC 15.3 X10*3/uL (4.8-10.8) H 08/13/21 05:20 RBC 3.88 X10*6/uL (4.20-5.50) L 08/13/21 05:20 Hgb 11.3 g/dl (12.0-16.0) L 08/13/21 05:20 Hct 34.6 % (37.0-47.0) L 08/13/21 05:20 MCV 89.2 fL (80.0-98.0) 08/13/21 05:20 MCH 29.1 pg (27.0-33.0) 08/13/21 05:20 MCHC 32.7 g/dl (31.0-35.0) 08/13/21 05:20 RDW 12.7 % (11.0-16.0) 08/13/21 05:20 Plt Count 287 X10*3/uL (160-400) 08/13/21 05:20 MPV 11.4 fL (9.4-12.3) 08/13/21 05:20 Immature Gran % (Auto) 0.8 % (0.0-0.4) H 08/12/21 05:52 Neut % (Auto) 77.8 % (45-73) H 08/12/21 05:52 Lymph % (Auto) 12.2 % (20-40) L 08/12/21 05:52 [place] % (Auto) 7.8 % (2-11) 08/12/21 05:52 Eos % (Auto) 1.2 % (0-4) 08/12/21 05:52 Baso % (Auto) 0.2 % (0-2) 08/12/21 05:52 Lymph # (Auto) 1.3 X10*3/uL (1.2-4.9) 08/12/21 05:52 [place] # (Auto) 0.8 X10*3/uL (0.1-1.2) 08/12/21 05:52 Eos # (Auto) 0.1 X10*3/uL (0.0-0.4) 08/12/21 05:52 Baso # (Auto) 0.0 X10*3/uL (0.0-0.2) 08/12/21 05:52 Abs Immat Gran (auto) 0.08 X10*3/uL (0.00-0.03) H 08/12/21 05:52 Absolute Neuts (auto) 8.1 x10*3/uL (2.0-8.3) 08/12/21 05:52 Absolute Nucleated RBC 0.000 X10*3/uL (0.0-0.012) 08/13/21 05:20 Nucleated RBC % (auto) 0.0 /100WBC (0.0-0.2) 08/13/21 05:20 PT 13.4 SEC (9.9-13.0) H 08/13/21 05:20 INR 1.2 (0.9-1.1) H 08/13/21 05:20 Sodium 139 mmol/L (135-145) 08/13/21 05:20 Potassium 3.9 mmol/L (3.3-5.1) 08/13/21 05:20 Chloride 103 mmol/L (96-108) 08/13/21 05:20 Carbon Dioxide 26 mmol/L (22-29) 08/13/21 05:20 Anion Gap 14 (12-20) 08/13/21 05:20 BUN 21 mg/dL (9-16) H 08/13/21 05:20 Creatinine 0.82 mg/dL (0.5-1.4) 08/13/21 05:20 Estim Creat Clear Calc 81.0 08/13/21 05:20 Estimated GFR > 60 08/13/21 05:20 POC Glucose 245 mg/dL (60-115) H 08/13/21 11:36 Random Glucose 322 mg/dL (60-115) H 08/13/21 05:20 Lactic Acid 1.3 mmol/L (0.5-2.0) 08/11/21 13:15 Calcium 9.1 mg/dL (8.4-10.2) 08/13/21 05:20 Total Bilirubin 1.1 mg/dL (0.0-1.0) H 08/11/21 09:32 AST 18 U/L (5-31) 08/11/21 09:32 ALT 19 U/L (0-31) 08/11/21 09:32 Alkaline Phosphatase 123 U/L (39-117) H 08/11/21 09:32 Total Protein 6.6 g/dL (6.5-8.0) 08/11/21 09:32 Albumin 3.6 g/dL (3.5-5.0) 08/11/21 09:32 Lipase 7 U/L (8-78) L 08/11/21 09:32 Urine Color YELLOW 08/11/21 09:56 Urine Appearance HAZY 08/11/21 09:56 Urine pH 6.0 (5.0-8.0) 08/11/21 09:56 Ur Specific [place] 1.020 (1.005-1.025) 08/11/21 09:56 Urine Protein 1+ MG/DL (NEG-TRACE) H 08/11/21 09:56 Urine Glucose (UA) >=1000 MG/DL (NEG) H 08/11/21 09:56 Urine Ketones 15 MG/DL (NEG) 08/11/21 09:56 Urine Blood TRACE (NEG) 08/11/21 09:56 Urine Nitrite NEG (NEG) 08/11/21 09:56 Ur Leukocyte Esterase NEG (NEG) 08/11/21 09:56 Urine RBC 1-4 /HPF (0) 08/11/21 09:56 Urine WBC 0-2 /HPF (0-4) 08/11/21 09:56 Ur Squamous Epith Cells 1+ /LPF 08/11/21 09:56 Urine Bacteria NONE /LPF 08/11/21 09:56 Urine Mucus TRACE /LPF 08/11/21 09:56 COVID-19 (FABIO) Negative (Negative) 08/11/21 09:32 COVID-19 Clin Com See Note 08/11/21 09:32 Influenza Type A (DIANE) Negative (Negative) 08/11/21 09:32 Influenza Type B (DIANE) Negative (Negative) 08/11/21 09:32 Influenza A & B Note See Note 08/11/21 09:32 - Imaging Radiologist's impression: ITS Impressions Abdomen Ultrasound 08/11/21 12:36 IMPRESSION: Abnormal appearance of the gallbladder. Acute cholecystitis is within the differential. Prominent echogenic, avascular, nonshadowing material within the gallbladder is suspected to represent echogenic bile although a mass is within the differential although no color flow suggests against a mass. Clinical correlation is recommended. HIDA imaging may be warranted. Surgical consultation is also likely warranted. Hepatobiliary Scan Nuclear Medicine 08/11/21 21:40 IMPRESSION: Nonvisualization of the gallbladder would be compatible with obstruction of the cystic duct and would be compatible with acute cholecystitis, as suggested on the right upper quadrant ultrasound. Assessment and Plan Patient Active problem list reviewed?: Yes (1) Family history of hypercoagulable state Status: Acute Assessment and plan: This is a pleasant 65-year-old lady who has been admitted with acute cholecystitis. She was supposed to have surgery however she needs preop cardiology workup. She mentions a family history of hypercoagulable state. A brother has homozygous prothrombin [id number] mutation. Another brother likely had it however he has . She herself has not had any previous thromboembolic events. She has never been tested though. In view of the fact that she will likely be undergoing surgery in the future, I would recommend testing her for it. PLAN: Ordered prothrombin mutation [id number], with the morning labs. Will make further recommendations, regarding perioperative management, based upon the above results. Thank you for the consult. Will follow along with you, Cc: Paramjit. Addendum: 08/14: Concern for sepsis: The patient began to have increased abdominal pain in the right upper quadrant and felt that her symptoms were worsening. An attempt transfer to [facility] [place] was made however no transfers with being accepted. As a temporizing measure cholecystostomy tube was requested. This was placed by interventional radiology on the evening of 08/14/2021. The procedure produced purulent appearing bilious fluid. At the conclusion of the procedure, she began to develop tachycardia and tachypnea. Her oxygen saturation decreased and she was subsequently placed on a non-rebreather mask. Patient had an elevated temperature up to 103.9. [place] measures were initiated. Hospitalist and Cardiology were consulted and as were the ICU team. The patient looked fatigued but was alert an oriented x3, she denied chest pain, sob but does endorse slight pain at the surgical site and reported feeling better since receiving IV Tylenol and some fluids (LR at 100/hr for the last 2 hours). Vital signs were 108/52, heart rate 107, respiratory rate 24, temp 102.7 degrees and patient was satting at 93% on 3 L, looking comfortable. PACU nursing reports the patient did have a bowel movement and did urinate however there is no data in the computer to capture the urine output as of now. Recent labs revealed Lactic acid 3.4, trop 107.5, WBC 3.7, abg 7.51/ 21/123/17/-3.0, all other labs were normal. After discussing with Dr. Ji, the plan was to DC the cefepime and Flagyl in add meropenem, swab for COVID, DC the heparin as low suspicion for ACS, put in a triple-lumen and get a CVP, repeat troponin and lactic acid timed appropriately. Put in a [place]. however the money manager preferred to transfer the patient to CCU at [facility] to get a bed was secured. So, patient was transferred to [facility] CCU. - Time Spent With Patient Time Spent with Patient (in minutes): 30
[2021-08-13] MEDS: Enoxaparin Sodium 40 MG/0.4 ML SYRINGE SUBCUT (12:33)
--- NOTE | 2021-08-13 12:43 | MHC.CM.PN ---
EMR REVIEWED, PER CARDIOLOGY CARDIAC CATH FROM 2019 REVIEWED AND PT IS HIGH CARDIAC RISK FOR GALLBLADDER SURGERY, SURGERY CANCELLED FOR TODAY AND PT WILL BE TX'D MEDICALLY FOR NOW, NO D/C PLANNED AT THIS TIME, AFTER DISCUSSING DISPO W/ PT & CM DOES NOT ANTIC NEED FOR SERVICES AT HOME AND WILL CONT TO FOLLOW D/C NEEDS.
[2021-08-13 15:40] VITALS: BP 139/61; PULSE 74; RESP 18; TEMP 37.1; O2SAT 95
[2021-08-13 16:18] LABS: Glucose, Whole Blood 154 mg/dL (60-115)
[2021-08-13 19:39] VITALS: BP 151/65; PULSE 80; RESP 18; TEMP 37.2; O2SAT 95
[2021-08-13] MEDS: Latanoprost 0.005 % Ophth Sol 2.5 ML DROPS 1 DROP EYE-RIGHT (19:47)
[2021-08-13 20:26] LABS: Glucose, Whole Blood 207 mg/dL (60-115)
[2021-08-13] MEDS: Insulin Glargine,Hum.rec.anlog 100 UNIT/ML 10 ML VIAL 65 UNIT SUBCUT (21:57)
[2021-08-13 23:41] VITALS: BP 146/69; PULSE 76; RESP 17; TEMP 36.4; O2SAT 95
[2021-08-14] VITALS (19 sets, daily range): BP systolic 91–194; BP diastolic 37–107; PULSE 78–128; RESP 16–32; TEMP 36.4–39.9; O2SAT 92–100
--- NOTE | 2021-08-14 | ECG_ITS ---
Test Reason : cp Blood Pressure : / mmHG Vent. Rate : 109 BPM Atrial Rate : 109 BPM P-R Int : 144 ms QRS Dur : 148 ms QT Int : 418 ms P-R-T Axes : -24 -57 004 degrees QTc Int : 562 ms Sinus tachycardia with Premature atrial complexes with Aberrant conduction Right bundle branch block Left anterior fascicular block Bifascicular block ST depression in anterior leads worse than before Slight elevation aVR Abnormal ECG When compared with ECG of 12-AUG-2021 09:07, Changes noted. Referred By: Holland Denise Electronically Signed By:DANITZA NIEVES
[2021-08-14] MEDS: cefEPime HCl 2 GM in 0.9 % Sodium Chloride 50 ML IV ×2 (03:45→19:01)
[2021-08-14] MEDS: metroNIDAZOLE/NS 500 MG/100 ML PIGGYBACK 100 MG IV ×3 (03:48→19:36)
[2021-08-14] MEDS: Lactated Ringers 1,000 ML 100 ML IVCONT (03:50)
[2021-08-14 04:59] LABS: MANUAL DIFF FLAG NO
[2021-08-14 05:04] LABS: Basophils Percent Auto 0.3 % (0-2); Eosinophils Absolute Auto 0.2 X10*3/uL (0.0-0.4); Eosinophils Percent Auto 1.6 % (0-4); Hematocrit 30.8 % (37.0-47.0); Hemoglobin 10.1 g/dl (12.0-16.0); Imm Gran Abs Auto 0.06 X10*3/uL (0.00-0.03); Imm Gran Pct Auto 0.6 % (0.0-0.4); Lymphocytes Absolute Auto 1.4 X10*3/uL (1.2-4.9); Lymphocytes Percent Auto 13.8 % (20-40); Mean Corpuscular HGB Conc 32.8 g/dl (31.0-35.0); Mean Corpuscular Hemoglobin 29.1 pg (27.0-33.0); Mean Corpuscular Volume 88.8 fL (80.0-98.0); Mean Platelet Volume 11.4 fL (9.4-12.3); Monocytes Percent Auto 9.8 % (2-11); Neutrophils Absolute Auto 7.5 x10*3/uL (2.0-8.3); Neutrophils Percent Auto 73.9 % (45-73); Platelet Count 238 X10*3/uL (160-400); Red Blood Count 3.47 X10*6/uL (4.20-5.50); Red Cell Distribution Width 12.6 % (11.0-16.0); White Blood Count 10.1 X10*3/uL (4.8-10.8)
--- NOTE | 2021-08-14 07:00 | CA_ITS ---
Transthoracic Echocardiogram Patient (Last, First, Middle): Nevaeh Jones, Gender: Female Date of : 1955 Age: 65 Procedure Date: 08/14/2021 Procedure Type: Transthoracic Echocardiogram Location: S3W Height: 167.64 cm Weight: 93.44 kg BSA: 2.03 m2 Heart Rate: bpm BP: 150 / 63 mmHg Power Marketer: VH/TO Referring MD: Steve Duong MD Symptoms: preop evaluation; CAD Study Quality: Good ECG Rhythm: Sinus Conclusions: - The left ventricular systolic function is low normal. The calculated ejection fraction is 54% by biplane method. - The basal inferior segment is akinetic. - There is mild calcification of the aortic valve. - There is mild mitral annular calcification. Findings Left Ventricle Normal left ventricular cavity size. There is normal left ventricular wall thickness. The left ventricular systolic function is low normal. The calculated ejection fraction is 54% by biplane method. There is evidence of regional wall motion abnormalities. E/E prime ratio is between 8 and 15 consistent with indeterminate filling pressures. Evidence suggests grade I (mild) diastolic dysfunction. Wall Motion Rest Echo Findings The basal inferior segment is akinetic. Right Ventricle Normal right ventricular cavity size and systolic function. Atria Both atria are normal in size. Aortic Valve There is a normal trileaflet aortic valve. There is mild calcification of the aortic valve. There is no aortic valve stenosis. The mean gradient is 8 mmHg. There is no aortic valve regurgitation. Mitral Valve There is mild mitral annular calcification. There is trace mitral valve regurgitation. There is no mitral valve stenosis. Pulmonic Valve The pulmonic valve is likely normal. Tricuspid Valve Normal tricuspid valve structure. There is trace tricuspid valve regurgitation. Tricuspid regurgitation envelope is inadequate for calculation of right ventricular systolic pressure. Great Vessels The asc aorta and aortic arch are normal in size. Small plaque is seen in the sino tubular ridge. Venous The inferior vena cava is normal in size and collapses greater than 50% with inspiration. Pericardium/Pleural There is no evidence of pericardial effusion. Prior Study Comparison Changes noted compared to prior study dated: 09/08/2008. See comment on wall motion. Measurements 2D Linear Measurements IVSd: 1.01 0.6-0.9/0.6-1.0 cm LVIDd: 5.11 3.9-5.3/4.2-5.9 cm LVIDd Index: 2.52 2.4-3.2/2.2-3.1 cm/m2 LVIDs: 3.41 2.0-3.6 cm LVPWd: 0.94 0.7-1.1 cm LA Diam: 3.80 2.7-3.8/3.0-4.0 cm LAIDs Index: 1.87 1.5-2.3 cm/m2 LV Mass: 226.42 67-162/88-224 g LV Mass Index: 111.54 43-95/49-115 g/m2 LVOT Diam: 2.30 3.0+(-)1.3 cm 2D Systolic Function EF 4C: 54.60 >55% EF 2C: 53.30 >55% EF BiP: 54.10 >55% Mitral Valve MV Pk E: 0.95 MV PK A: 1.15 MV Decel Time: 148.00 E/A: 0.80 E'Lateral: 9.57 E'Medial: 6.64 E/E' Med: 14.30 E/E' Lat: 9.90 PHT: 43.00 MVA PHT: 5.12 Decel Assumption: 6.43 Aortic Valve AoV Pk Tobias: 1.78 AoV Mn Tobias: 1.33 AoV VTI: 0.35 AoV Pk Grad: 13.00 Aov Mn Grad: 8.00 IRA Cont.VTI: 2.86 LVOT LVOT Pk Tobias: 1.19 LVOT Mn Tobias: 0.89 LVOT VTI: 0.24 LVOT Pk Grad: 6.00 LVOT Mn Grad: 3.00 LVOT Diam: 2.30 LVOT Area: 4.15 Diastolic Function MV Pk E: 0.95 MV Pk A: 1.15 E/A: 0.80 E'Medial: 6.64 E/E' Med: 14.30 E' Laterial: 9.57 E/E' Lat: 9.90 Right Ventricle TAPSE (mm): 24.90 TVS' Tobias: 14.60 Tricuspid Valve RA Press: 3.00 Great Vessels Aorta Sinus of Valsalva: 3.85 2.0-3.5 cm Ao Asc: 3.60 2.1-3.4 cm Ao Arch: 3.10 Updated in Other Vendor System with Status of Final Steve Duong MD electronically signed on 08/14/2021 4:14:06 PM with status of Final
[2021-08-14 07:33] LABS: Glucose, Whole Blood 220 mg/dL (60-115)
[2021-08-14] MEDS: Enoxaparin Sodium 40 MG/0.4 ML SYRINGE SUBCUT (07:49)
[2021-08-14] MEDS: Insulin Lispro 100 UNIT/ML 3 ML VIAL SUBCUT (07:49)
[2021-08-14] MEDS: Brimonidine Tartrate 0.2% Oph 5 ML BOTTLE 1 DROP EYE-BOTH (07:53)
[2021-08-14] MEDS: Dorzolamide/Timolo 2.23%/0.68% 10 ML DRBTL 1 DROP EYE-RIGHT (07:54)
--- NOTE | 2021-08-14 08:43 | P.PNGS_ITS ---
Subjective Subjective Date of Service: 08/14/21 <Jacki Stratton PA-C - Last Filed: 08/14/21 08:58> 08/14/21 <Holland Denise MD - Last Filed: 08/14/21 16:14> Interval history: Feels very lousy this morning. C/o RUQ pain again that is worse then upon presentation. <Jacki Stratton PA-C - Last Filed: 08/14/21 08:58> Physical Exam Vital Signs: Vital Signs: Last Vital Signs Temp 100.2 F 08/14/21 07:53 Pulse 91 08/14/21 07:53 Resp 16 08/14/21 07:53 BP 150/63 H 08/14/21 03:34 Pulse Ox 95 08/14/21 07:53 BMI result Body Mass Index 33.3 <BETHANY Rutledge Last Filed: 08/14/21 08:58> Const: General: no acute distress, alert and other (uncomfortable appearing) <Jacki Stratton PA-C - Last Filed: 08/14/21 08:58> Resp: Effort & Inspection: normal respiratory effort <Jacki Stratton PA-C - Last Filed: 08/14/21 08:58> GI: Inspection: No distended and Yes obesity <Jacki Stratton PA-C - Last Filed: 08/14/21 08:58> Palpation (GI): Soft to palpation, Tenderness to palpation present (GI) in the RUQ and Allison's sign positive, no guarding and not rigid <Jacki Stratton PA-C - Last Filed: 08/14/21 08:58> Percussion: Yes normal to percussion <Jacki Stratton PA-C - Last Filed: 08/14/21 08:58> Skin: General skin exam: no rashes or lesions noted <BETHANY Rutledge Last Filed: 08/14/21 08:58> Extrem: General: Yes no clubbing, cyanosis or edema <BETHANY Rutledge Last Filed: 08/14/21 08:58> Objective Data Active Medications Brimonidine Tartrate (Brimonidine Tartrate 0.2% Oph 5 Ml Bottle) 1 drop EYE- BOTH TID [facility] Last Admin: 08/14/21 07:53 Dose: 1 drop Documented by: LIZZETH Dextrose (Dextrose 50 % 25 Gm/50 Ml Syringe) 25 gm IVPUSH Q15M PRN; Protocol PRN Reason: per Hypoglycemia Standing Ord. Dextrose (Dextrose 50 % 25 Gm/50 Ml Syringe) 25 gm IVPUSH Q15M PRN; Protocol PRN Reason: per Hypoglycemia Standing Ord. Dorzolamide/Timolol (Dorzolamide/Timolo 2.23%/0.68% 10 Ml Drbtl) 1 drop EYE- RIGHT BID [facility] Last Admin: 08/14/21 07:54 Dose: 1 drop Documented by: LIZZETH Enoxaparin Sodium (Enoxaparin Sodium 40 Mg/0.4 Ml Syringe) 40 mg SUBCUT Q24H [facility] Last Admin: 08/14/21 07:49 Dose: 40 mg Documented by: LIZZETH Glucose (Glucose Gel 15 Gm Gel..Gram.) 15 gm PO Q15M PRN; Protocol PRN Reason: per Hypoglycemia Standing Ord. Glucose (Glucose Gel 15 Gm Gel..Gram.) 15 gm PO Q15M PRN; Protocol PRN Reason: per Hypoglycemia Standing Ord. Hydromorphone HCl (Hydromorphone Hcl 1 Mg/Ml Syringe) 0.5 mg IVPUSH Q3H PRN; Protocol PRN Reason: Pain, Severe (Pain Scale 7-10) Cefepime HCl 2 gm/ Sodium (Chloride) 50 mls @ 100 mls/hr IV Q12H [facility] Last Infusion: 08/14/21 04:53 Dose: 100 mls/hr Documented by: RINKU Metronidazole (Flagyl) 500 mg in 100 mls @ 100 mls/hr IV Q6H [facility] Last Admin: 08/14/21 07:50 Dose: 100 mls/hr Documented by: LIZZETH Insulin Glargine (Insulin Glargine,Hum.Rec.Anlog 100 Unit/Ml 10 Ml Vial) 65 unit SUBCUT BEDTIME [facility] Last Admin: 08/13/21 21:57 Dose: 20 unit Documented by: RINKU Comments: per dr Kim Insulin Human Lispro (Insulin Lispro 100 Unit/Ml 3 Ml Vial) 0 unit SUBCUT QIDACHS [facility]; Protocol Last Admin: 08/14/21 07:49 Dose: 4 unit Documented by: LIZZETH Latanoprost (Latanoprost 0.005 % Ophth Radha 2.5 Ml Drops) 1 drop EYE-RIGHT BEDTIME [facility] Last Admin: 08/13/21 19:47 Dose: 1 drop Documented by: RINKU Ondansetron HCl (Ondansetron Hcl 4 Mg/2 Ml Vial) 4 mg IVPUSH Q8H PRN PRN Reason: Nausea and Vomiting Oxycodone HCl (Oxycodone Hcl Immed Release 5 Mg Tablet) 5 mg PO Q6H PRN PRN Reason: Pain, Moderate (Pain Scale 4-6 Last Admin: 08/12/21 20:42 Dose: 5 mg [facility]: [facility] Consult (Consult Rx Perform Med Rec) 1 each MISCELLANE ONCE PRN PRN Reason: Consult order Polyethylene Glycol (Polyethylene Glycol 3350 17 Gm Powd.Pack) 17 gm PO DAILY PRN PRN Reason: Constipation Sodium Chloride (0.9 % Sodium Chloride Flush 3 Ml Syringe) 3 ml IVFLUSH QSHIFT [facility] Last Admin: 08/14/21 07:49 Dose: Not Given Documented by: LIZZETH Non-Admin Reason: IV Running Zolpidem Tartrate (Zolpidem Tartrate 5 Mg Tablet) 5 mg PO BEDTIME PRN PRN Reason: Insomnia <Jacki Stratton PA-C - Last Filed: 08/14/21 08:58> Labs CBC & Chem 7: : 08/14/21 04:39 08/13/21 05:20 <Jacki Stratton PA-C - Last Filed: 08/14/21 08:58> Labs: Laboratory Results - last 24 hr 08/13/21 08/13/21 08/13/21 11:36 15:43 19:41 MCV MCH MCHC RDW Plt Count MPV Immature Gran % (Auto) Neut % (Auto) Lymph % (Auto) [place] % (Auto) Eos % (Auto) Baso % (Auto) Lymph # (Auto) [place] # (Auto) Eos # (Auto) Baso # (Auto) Abs Immat Gran (auto) Absolute Neuts (auto) Absolute Nucleated RBC Nucleated RBC % (auto) POC Glucose 245 H 154 H 207 H 08/14/21 08/14/21 04:39 07:23 MCV 88.8 MCH 29.1 MCHC 32.8 RDW 12.6 Plt Count 238 MPV 11.4 Immature Gran % (Auto) 0.6 H Neut % (Auto) 73.9 H Lymph % (Auto) 13.8 L [place] % (Auto) 9.8 Eos % (Auto) 1.6 Baso % (Auto) 0.3 Lymph # (Auto) 1.4 [place] # (Auto) 1.0 Eos # (Auto) 0.2 Baso # (Auto) 0.0 Abs Immat Gran (auto) 0.06 H Absolute Neuts (auto) 7.5 Absolute Nucleated RBC 0.000 Nucleated RBC % (auto) 0.0 POC Glucose 220 H <Jacki Stratton PA-C - Last Filed: 08/14/21 08:58> Microbiology Microbiology Results: Microbiology 08/11/21 13:24 Blood Culture - Preliminary Blood - Venous No growth after 48 hours. 08/11/21 13:15 Blood Culture - Preliminary Blood - Venous No growth after 48 hours. <aJcki Stratton PA-C - Last Filed: 08/14/21 08:58> Procedures Date of Service Date of Service: 08/14/21 <Jacki Stratton PA-C - Last Filed: 08/14/21 08:58> Progress Note: A&P Assessment and plan (1) Acute cholecystitis: Status: Acute <Jacki Stratton PA-C - Last Filed: 08/14/21 08:58> (2) Atherosclerotic cardiovascular disease: Status: Acute <Jacki Stratton PA-C - Last Filed: 08/14/21 08:58> (3) Factor II deficiency: Status: Acute <BETHANY Rutledge Last Filed: 08/14/21 08:58> Plan 65 year old female with PMH of diabetes, CAD, factor II deficiency, admitted with acute cholecysititis. Lap CCY planned for today however seen by cardiology pre op and deemed high risk for progressive coronary artery disease and wanted work up prior to any non emergent noncardiac surgery. Plan was to continue IV abx however having worsening pain and febrile this morning. RUQ is tender with positive allison sign on exam. Given no improvement with supportive measures, will order for cholecystostomy tube today, cont IV abx. Further plan dependent on patient course. Hospitalist/cardiology and Heme/onc following. <Jacki Stratton PA-C - Last Filed: 08/14/21 08:58> 65 year old female with PMH of diabetes, CAD, factor II deficiency, admitted with acute cholecysititis. Lap CCY planned for today however seen by cardiology pre op and deemed high risk for progressive coronary artery disease and wanted work up prior to any non emergent noncardiac surgery. Plan was to continue IV abx however having worsening pain and febrile this morning. RUQ is tender with positive allison sign on exam. Given no improvement with supportive measures, will order for cholecystostomy tube today, cont IV abx. Further plan dependent on patient course. Hospitalist/cardiology and Heme/onc following. agree with the above assessment and plan. Patient at increased risk for surgical procedure due to coronary artery disease. Options include transfer to tertiary care center verses cholecystostomy tube. The gallbladder has echogenic bile with very small gallstones therefore cholecystostomy may be is safest option at this time. <Holland Denise MD - Last Filed: 08/14/21 16:14> Time Spent With Patient Time: Total time spent is greater than 50% in coordination of care (as docum ented) at patient's floor/unit and/or counseling patient: <Jacki Stratton PA-C - Last Filed: 08/14/21 08:58> Quality Stroke Does the patient have a stroke diagnosis?: No <Jacki Stratton PA-C - Last Filed: 08/14/21 08:58> VTE Prior VTE?: No <Jacki Stratton PA-C - Last Filed: 08/14/21 08:58> VTE Risk Level:: Surgical - moderate <BETHANY Rutledge Last Filed: 08/14/21 08 :58> VTE Device Contraindication: N/A - Device Ordered <BETHANY Rutledge Last Filed: 08/14/21 08:58> VTE Drug Contraindication: Treatment Not Indicated <BETHANY Rutledge Last Filed: 08/14/21 08:58>
--- NOTE | 2021-08-14 08:57 | P.PNIM_ITS ---
Subjective Subjective Date of Service: 08/15/21 Review of Systems Follow up consultation, acute [place] feverish with general malaise elevated blood pressure Physical Exam Vital Signs: Vital Signs: Last Vital Signs Temp 100.2 F 08/14/21 07:53 Pulse 91 08/14/21 07:53 Resp 16 08/14/21 07:53 BP 150/63 H 08/14/21 03:34 Pulse Ox 95 08/14/21 07:53 BMI result Body Mass Index 33.3 Appearing in no acute distress lung sounds are clear to auscultation heart regular rate rhythm, clear S1, S2 positive bowel sounds, abdomen is soft, nontender neuro patient is alert x3, no focal deficits Objective Data Active Medications Brimonidine Tartrate (Brimonidine Tartrate 0.2% Oph 5 Ml Bottle) 1 drop EYE- BOTH TID [facility] Last Admin: 08/14/21 07:53 Dose: 1 drop Documented by: LIZZETH Dextrose (Dextrose 50 % 25 Gm/50 Ml Syringe) 25 gm IVPUSH Q15M PRN; Protocol PRN Reason: per Hypoglycemia Standing Ord. Dextrose (Dextrose 50 % 25 Gm/50 Ml Syringe) 25 gm IVPUSH Q15M PRN; Protocol PRN Reason: per Hypoglycemia Standing Ord. Dorzolamide/Timolol (Dorzolamide/Timolo 2.23%/0.68% 10 Ml Drbtl) 1 drop EYE- RIGHT BID [facility] Last Admin: 08/14/21 07:54 Dose: 1 drop Documented by: LIZZETH Enoxaparin Sodium (Enoxaparin Sodium 40 Mg/0.4 Ml Syringe) 40 mg SUBCUT Q24H [facility] Last Admin: 08/14/21 07:49 Dose: 40 mg Documented by: LIZZETH Glucose (Glucose Gel 15 Gm Gel..Gram.) 15 gm PO Q15M PRN; Protocol PRN Reason: per Hypoglycemia Standing Ord. Glucose (Glucose Gel 15 Gm Gel..Gram.) 15 gm PO Q15M PRN; Protocol PRN Reason: per Hypoglycemia Standing Ord. Hydromorphone HCl (Hydromorphone Hcl 1 Mg/Ml Syringe) 0.5 mg IVPUSH Q3H PRN; Protocol PRN Reason: Pain, Severe (Pain Scale 7-10) Cefepime HCl 2 gm/ Sodium (Chloride) 50 mls @ 100 mls/hr IV Q12H [facility] Last Infusion: 08/14/21 04:53 Dose: 100 mls/hr Documented by: RINKU Metronidazole (Flagyl) 500 mg in 100 mls @ 100 mls/hr IV Q6H [facility] Last Admin: 08/14/21 07:50 Dose: 100 mls/hr Documented by: LIZZETH Insulin Glargine (Insulin Glargine,Hum.Rec.Anlog 100 Unit/Ml 10 Ml Vial) 65 un it SUBCUT BEDTIME [facility] Last Admin: 08/13/21 21:57 Dose: 20 unit Documented by: RINKU Comments: per dr Kim Insulin Human Lispro (Insulin Lispro 100 Unit/Ml 3 Ml Vial) 0 unit SUBCUT QIDACHS [facility]; Protocol Last Admin: 08/14/21 07:49 Dose: 4 unit Documented by: LIZZETH Latanoprost (Latanoprost 0.005 % Ophth Radha 2.5 Ml Drops) 1 drop EYE-RIGHT BEDTIME [facility] Last Admin: 08/13/21 19:47 Dose: 1 drop Documented by: RINKU Ondansetron HCl (Ondansetron Hcl 4 Mg/2 Ml Vial) 4 mg IVPUSH Q8H PRN PRN Reason: Nausea and Vomiting Oxycodone HCl (Oxycodone Hcl Immed Release 5 Mg Tablet) 5 mg PO Q6H PRN PRN Reason: Pain, Moderate (Pain Scale 4-6 Last Admin: 08/12/21 20:42 Dose: 5 mg Documented [facility]: [facility] [place] Consult (Consult Rx Perform Med Rec) 1 each MISCELLANE ONCE PRN PRN Reason: Consult order Polyethylene Glycol (Polyethylene Glycol 3350 17 Gm Powd.Pack) 17 gm PO DAILY PRN PRN Reason: Constipation Sodium Chloride (0.9 % Sodium Chloride Flush 3 Ml Syringe) 3 ml IVFLUSH QSHIFT [facility] Last Admin: 08/14/21 07:49 Dose: Not Given Documented by: LIZZETH Non-Admin Reason: IV Running Zolpidem Tartrate (Zolpidem Tartrate 5 Mg Tablet) 5 mg PO BEDTIME PRN PRN Reason: Insomnia Labs CBC & Chem 7: 08/14/21 19:29 08/14/21 18:07 Labs: Laboratory Results - last 24 hr 08/13/21 08/13/21 08/13/21 11:36 15:43 19:41 MCV MCH MCHC RDW Plt Count MPV Immature Gran % (Auto) Neut % (Auto) Lymph % (Auto) [place] % (Auto) Eos % (Auto) Baso % (Auto) Lymph # (Auto) [place] # (Auto) Eos # (Auto) Baso # (Auto) Abs Immat Gran (auto) Absolute Neuts (auto) Absolute Nucleated RBC Nucleated RBC % (auto) POC Glucose 245 H 154 H 207 H 08/14/21 08/14/21 04:39 07:23 MCV 88.8 MCH 29.1 MCHC 32.8 RDW 12.6 Plt Count 238 MPV 11.4 Immature Gran % (Auto) 0.6 H Neut % (Auto) 73.9 H Lymph % (Auto) 13.8 L [place] % (Auto) 9.8 Eos % (Auto) 1.6 Baso % (Auto) 0.3 Lymph # (Auto) 1.4 [place] # (Auto) 1.0 Eos # (Auto) 0.2 Baso # (Auto) 0.0 Abs Immat Gran (auto) 0.06 H Absolute Neuts (auto) 7.5 Absolute Nucleated RBC 0.000 Nucleated RBC % (auto) 0.0 POC Glucose 220 H Microbiology Microbiology Results: Microbiology 08/11/21 13:24 Blood Culture - Preliminary Blood - Venous No growth after 48 hours. 08/11/21 13:15 Blood Culture - Preliminary Blood - Venous No growth after 48 hours. Assessment and Plan (1) Acute cholecystitis: Status: Acute Plan 65 year old women admitted by general surgery for acute cholecystitis Acute cholecystitis Initially the plan was for no surgical management to her to her history of coronary artery disease and triple-vessel disease however she is now exhibiting symptoms and having fever, elevated blood pressure, weakness Echocardiogram ordered continue antibiotics If she is cleared by Cardiology it is possible that she may have cholecystectomy versus drain Keep NPO Leukocytosis Likely related to acute cholecystitis Diabetes mellitus Sliding scale, ADA diet Continue Lantus Hypertension Continue lisinopril Asthma Continue albuterol as needed Hx of CAD seen and evaluated by cardiology DVT prophylaxis as per surgical team Attending Dr. Martínez Full code Quality Stroke Does the patient have a stroke diagnosis?: No VTE Prior VTE?: No VTE Risk Level:: Surgical - moderate VTE Device Contraindication: N/A - Device Ordered VTE Drug Contraindication: Treatment Not Indicated
--- NOTE | 2021-08-14 10:13 | P.PNCA_ITS ---
Subjective Subjective Date of Service: 08/14/21 Interval history: She states that she generally does not feel good. Feverish. Just overall sense of being unwell. However, no angina or shortness of breath or anything specific from cardiac. Review of Systems Review of Systems Yes all other systems are reviewed and are negative Constitutional: Reports as per HPI, Reports body ache(s), Reports fever(s), Reports lethargy and Reports malaise Eyes: Reports as per HPI Reports as per HPI Cardiovascular: Reports as per HPI, Denies acrocyanosis, Denies cool extremities, Denies chest pain, Denies leg edema, Denies lightheadedness, Denies palpitations and Denies dyspnea Respiratory: Reports as per HPI, Reports no additional respiratory complaints and Denies dyspnea Gastrointestinal: Reports as per HPI and Reports abdominal pain Genitourinary: Reports as per HPI Musculoskeletal: Reports no additional musculoskeletal complaints and Reports as per HPI Skin/Breast: Reports system reviewed and no additional complaints, except as docu Reports system reviewed and no additional complaints, except as documented and Reports as per HPI Psychiatric: Reports no additional psychiatric complaints and Reports as per HPI Endocrine: Reports no additional endocrine complaints, Reports as per HPI and Denies palpitations Hematologic/Lymphatic: Reports no additional hematologic/lymphatic complaints and Reports as per HPI Allergic/Immunologic: Reports no additional allergic/immunologic complaints and Reports as per HPI Physical Exam Vital Signs: Last Vital Signs Temp 100.2 F 08/14/21 07:53 Pulse 91 08/14/21 07:53 Resp 16 08/14/21 07:53 BP 178/92 H 08/14/21 07:53 Pulse Ox 95 08/14/21 07:53 BMI result Body Mass Index 33.3 Const General: ill appearing Orientation/consciousness: patient oriented x3 HEENT Other: Unremarkable Head: Yes normal to inspection Neck Neck: Yes normal visual inspection Chest Chest palpation & inspection: normal inspection of the chest Resp Other: Few basal crackles on the right side. Cardio Palpation: normal PMI Heart sounds: S1 normal heart sound present, S2 normal heart sound present, no gallops, no murmurs and no rubs GI Palpation (GI): Soft to palpation Back/Spine/Pelvis Other: unremarkable Skin General skin exam: no rashes or lesions noted Neuro General: patient oriented x3 Extrem General: Yes normal to inspection Psych Mental Status: mental status grossly normal Objective Labs and Meds Result diagrams: 08/14/21 04:39 08/13/21 05:20 Lab results: Laboratory Results - last 24 hr 08/13/21 08/13/21 08/13/21 11:36 15:43 19:41 WBC RBC Hgb Hct MCV MCH MCHC RDW Plt Count MPV Immature Gran % (Auto) Neut % (Auto) Lymph % (Auto) [place] % (Auto) Eos % (Auto) Baso % (Auto) Lymph # (Auto) [place] # (Auto) Eos # (Auto) Baso # (Auto) Abs Immat Gran (auto) Absolute Neuts (auto) Absolute Nucleated RBC Nucleated RBC % (auto) POC Glucose 245 H 154 H 207 H 08/14/21 08/14/21 04:39 07:23 WBC 10.1 RBC 3.47 L Hgb 10.1 L Hct 30.8 L MCV 88.8 MCH 29.1 MCHC 32.8 RDW 12.6 Plt Count 238 MPV 11.4 Immature Gran % (Auto) 0.6 H Neut % (Auto) 73.9 H Lymph % (Auto) 13.8 L [place] % (Auto) 9.8 Eos % (Auto) 1.6 Baso % (Auto) 0.3 Lymph # (Auto) 1.4 [place] # (Auto) 1.0 Eos # (Auto) 0.2 Baso # (Auto) 0.0 Abs Immat Gran (auto) 0.06 H Absolute Neuts (auto) 7.5 Absolute Nucleated RBC 0.000 Nucleated RBC % (auto) 0.0 POC Glucose 220 H Progress Note: A&P Assessment and plan (1) Preoperative cardiovascular examination: Status: Acute (2) Atherosclerotic cardiovascular disease: Status: Acute Plan Cardiac catheterization reviewed from 2019. She had three-vessel obstructive CAD. Left main was normal. She has significant disease in the LAD, 2nd obtuse marginal, right coronary artery. Distal RCA was occluded. Echocardiogram then with LVEF 55-60%, no wall motion abnormalities; grade 2 diastolic dysfunction; no significant valvular dysfunction. Repeat echocardiogram is being completed today. She was supposed to be on medical management but has not been very compliant and has not seen any banquet food server in a while. Yesterday, she was seen in consultation and deemed to be at high cardiac risk for any procedures. Hence she was planned for non operative care, but she is feeling feverish today and not looking too good. Can consider transfer to [facility] for cholecystectomy. Send message to surgery as well as hospitalist. Otherwise, blood pressure is going up. Could be in response to acute medical issue but this may be also put stress on cardiac due to underlying CAD.Start beta-blockers. Time Spent With Patient Time: Total time spent is greater than 50% in coordination of care (as documented) at patient's floor/unit and/or counseling patient: 40min. Progress Note: Quality Stroke Does the patient have a stroke diagnosis?: No Procedures Date of Service Date of Service: 08/14/21
[2021-08-14 11:44] LABS: Glucose, Whole Blood 199 mg/dL (60-115)
[2021-08-14] MEDS: Metoprolol Tartrate 25 MG TABLET PO (12:50)
--- NOTE | 2021-08-14 15:38 | MHC.CM.PN ---
PATIENT NOT MEDICALLY READY FOR DISCHARGE CASE MANAGEMENT CONTINUING TO FOLLOW
[2021-08-14 17:42] LABS: Glucose, Whole Blood 254 mg/dL (60-115)
[2021-08-14] MEDS: Albuterol/Iprat 2.5/0.5MG 3 ML AMPUL.NEB INHALE (17:58)
--- NOTE | 2021-08-14 18:02 | PM.EVENT ---
Event Note Date of Service: 08/14/21 Event Note: asked to see patient s/o cholecystomtomy. patient complaining of sob, no chest pain, found to be septic with fever, tachycardia, tachypnea. already on abx, will get cultures, lactate, trops, ekg, abg, cbc, bmp SBP 120, CXR unremarkable.
[2021-08-14 18:16] LABS: MANUAL DIFF FLAG NO
[2021-08-14 18:28] LABS: Basophils Percent Auto 0.5 % (0-2); Eosinophils Percent Auto 1.1 % (0-4); Hematocrit 35.2 % (37.0-47.0); Hemoglobin 11.3 g/dl (12.0-16.0); Imm Gran Abs Auto 0.09 X10*3/uL (0.00-0.03); Imm Gran Pct Auto 4.8 % (0.0-0.4); LEFT SHIFT? 1; Lymphocytes Absolute Auto 0.4 X10*3/uL (1.2-4.9); Lymphocytes Percent Auto 20.9 % (20-40); Mean Corpuscular HGB Conc 32.1 g/dl (31.0-35.0); Mean Corpuscular Hemoglobin 28.8 pg (27.0-33.0); Mean Corpuscular Volume 89.6 fL (80.0-98.0); Mean Platelet Volume 10.9 fL (9.4-12.3); Monocytes Percent Auto 1.6 % (2-11); Neutrophils Absolute Auto 1.3 x10*3/uL (2.0-8.3); Neutrophils Percent Auto 71.1 % (45-73); Platelet Count 208 X10*3/uL (160-400); Red Blood Count 3.93 X10*6/uL (4.20-5.50); Red Cell Distribution Width 12.5 % (11.0-16.0); SCAN SMEAR FLAG 1
[2021-08-14 18:32] LABS: ABG HCO3 17 mmol/L (22-26); ABG pCO2 21 mmHg (32-45); ABG pH 7.51 (7.35-7.45); ABG pO2 123 mmHg (83-108)
[2021-08-14 18:36] LABS: Anion Gap 16 (12-20); Blood Urea Nitrogen 15 mg/dL (9-16); Calcium 8.6 mg/dL (8.4-10.2); Carbon Dioxide 22 mmol/L (22-29); Chloride 103 mmol/L (96-108); Creatinine Clr Calc Pharmacy 84.1; Estimated Glomerular Filt Rate > 60; Glucose Random 296 mg/dL (60-115); Potassium 3.7 mmol/L (3.3-5.1); Sodium 137 mmol/L (135-145)
[2021-08-14 18:58] LABS: Lactic Acid 3.4 mmol/L (0.5-2.0); Troponin-I High Sensitivity 107.5 ng/L (<3.5-17.0)
--- NOTE | 2021-08-14 19:17 | PC.NURSE ---
SURGICAL COURTROOM DEPUTY, MCKENZIE, CALL PLACED TO CRITICAL CARE PA TO EVALUATE PATIENT. MESSAGE SENT TO HOSPITALIST DR. JOSEPH REQUEST STAT PTT-HD BE ORDERED RELATED TO NEED BASELINE FOR HEPARIN GTT ORDERED.
[2021-08-14 19:24] LABS: White Blood Count 1.9 X10*3/uL (4.8-10.8)
--- NOTE | 2021-08-14 19:25 | PC.NURSE ---
7-3 shift: Pt with temp 100.2 and BP 178/92. Jacki Stratton notified. No new orders at this time. Pt states she doesn t have pain but feel weak and tired. Bedside echo done this am. Recheck temp 99.0 and BP 130/64, pt was started on po metoprolol. Down via wheelchair to preop for procedure. Family in room waiting
--- NOTE | 2021-08-14 19:52 | PM.DS ---
DS: Providers Provider Date of Service: 08/14/21 Date of admission: 08/11/21 13:22 Date of discharge: 08/14/21 Primary care physician: Tony Yusuf MD Admitting clinician: Holland Denise Consults: 08/11/21 13:41 Consult to Hospitalist Routine Consulting Provider: Hospitalist Reason For Exam: Acute cholecystitis, Diabetes, previous ID 08/12/21 10:43 Consult to Cardiology Routine Consulting Provider: Jerome Nino Reason for consultation: acute diane, presurgical consult Has provider been notified: No 08/12/21 13:40 Consult to Hematology / Oncology Routine Consulting Provider: Breann Larios Reason for consultation: factor 2, acute diane Has provider been notified: No 08/14/21 18:47 Consult to Critical Care Stat Consulting Provider: Aisha Covarrubias Reason for consultation: Sepsis after cholecystomy, CAD Attending physician on discharge: Holland Denise DS: Transfer Hospital Acceptance Reason for Transfer: Acute cholecystitis, cardiovascular disease, sepsis post cholecystostomy tube placement Name of Facility: [facility], CCU Accepting Provider: Dr. Cazares DS: Diagnosis Discharge Diagnosis (1) Acute cholecystitis: Status: Acute (2) Atherosclerotic cardiovascular disease: Status: Acute (3) Factor II deficiency: Status: Acute DS: Summary Hospital Course Hospital Course: Nevaeh Jones is a 65 year old female presenting with complaints of abdominal pain generalized weakness.? She has a prior history of gastric bypass surgery and reports eating excessively on mother's Day her family.? She subsequently developed complaints of abdominal pain in the right upper quadrant during the week which seemed to be aggravated by greasy foods.? The pain was intermittent at 1st but became more severe over the next several days.? She reports prior episodes of mild abdominal pain in the right upper quadrant and had a known history of cholelithiasis.? She denied previous symptoms as severe as her current episode.? She subsequently presented to the emergency department for further evaluation.? Ultrasound of the abdomen revealed some small cholelithiasis but also a larger area of echogenic bile without vascularity and without shadowing.? Subsequent HIDA scan confirm nonvisualization of the gallbladder suggestive of acute cholecystitis.? She is admitted to the surgical service for further management of acute cholecystitis.? She does report a previous history of an ID approximately 3 years ago which was managed at [facility].? She has not followed up with her graduate civil engineer recently.? She denies any recent chest pain or shortness of breath.? 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 There is a strong family history of blood clots in her family however. On examination the patient is tender in the abdomen especially in the right upper quadrant. Physical findings were consistent with acute cholecystitis. Hospitalist consultation was requested as well as Cardiology and Hematology consultation. Records from [facility] were received and patient thought to be high risk for any surgical procedure. Options included transfer to tertiary care center versus non operative management. Patient was admitted and placed on IV antibiotics. She initially had improvement in her symptoms with decreased abdominal pain and no nausea or vomiting. She was subsequently started on clear liquids and tolerated this well. Echocardiogram was obtained with the following conclusions: - The left ventricular systolic function is low normal.? The ? ? calculated ejection fraction is 54% by biplane method. ? - The basal inferior segment is akinetic.? - There is mild calcification of the aortic valve. ? - There is mild mitral annular calcification.? On 08/14/2021, the patient began to have increased abdominal pain in the right upper quadrant and felt that her symptoms were worsening. An attempt transfer to [facility] was made however no transfers with being accepted. As a temporizing measure cholecystostomy tube was requested. This was placed by interventional radiology on the evening of 08/14/2021. The procedure produced purulent appearing bilious fluid. At the conclusion of the procedure, she began to develop tachycardia and tachypnea. Her oxygen saturation decreased and she was subsequently placed on a non-rebreather mask. Patient had an elevated temperature up to 103.9. Coolong measures were initiated. Hospitalist and Cardiology were read consult and as were the ICU team. Repeat laboratories were obtained in the PACU. Patient was found to have a low WBC of 3.7. ABGs:7.514/21.4/123.1/98%. Chest x-ray is clear without pneumothorax. Abdominal x-ray revealed intact catheter without dislodgement. Dr. Duong contacted [facility] and arrange for transfer to CCU at [facility] under the care of Dr. Cazares. Time spent discussing smoking cessation with patient: more than 10 minutes Status at Discharge Functional status at discharge: bed bound Overall status at discharge: patient is not back to baseline Time Spent with Patient Time attestation: Total time spent providing and/or coordinating discharge services: Discharge coordination time: Greater than 30 minutes Quality: Safe Use of Opioids Does Pt have an Active Cancer Diagnosis on the Problem List?: No Quality: Stroke Does the patient have a stroke diagnosis?: No Physical Exam Vital Signs: Vital Signs: Last Vital Signs Temp 100.4 F 08/14/21 19:43 Pulse 113 H 08/14/21 19:43 Resp 24 H 08/14/21 19:43 BP 114/56 L 08/14/21 19:43 Pulse Ox 94 08/14/21 19:43 BMI result Body Mass Index 33.3 Const: General: anxious, ill appearing and lethargic Nutritional Appearance: well nourished Orientation/consciousness: lethargic Limitations: no limitations HEENT: Head: Yes normocephalic and Yes atraumatic Ears: hearing grossly normal bilaterally Resp: Effort & Inspection: normal respiratory effort Auscultation: clear to auscultation bilaterally, no crackles, no rales and no rhonchi GI: Palpation (GI): Soft to palpation, Tenderness to palpation present (GI) in the RUQ, no guarding and not rigid Percussion: Yes normal to percussion Auscultation: normal bowel sounds Rectal Exam - Female: deferred Skin: General skin exam: pallor Lesions: no lesions Rashes: no rashes Extrem: General: Yes capillary refill normal and Yes edema DS: Data Data Completed and Pending Labs on day of discharge: Laboratory Results - last 24 hr 08/13/21 08/14/21 08/14/21 19:41 04:39 07:23 WBC 10.1 RBC 3.47 L Hgb 10.1 L Hct 30.8 L MCV 88.8 MCH 29.1 MCHC 32.8 RDW 12.6 Plt Count 238 MPV 11.4 Immature Gran % (Auto) 0.6 H Neut % (Auto) 73.9 H Lymph % (Auto) 13.8 L [place] % (Auto) 9.8 Eos % (Auto) 1.6 Baso % (Auto) 0.3 Lymph # (Auto) 1.4 [place] # (Auto) 1.0 Eos # (Auto) 0.2 Baso # (Auto) 0.0 Abs Immat Gran (auto) 0.06 H Absolute Neuts (auto) 7.5 Absolute Nucleated RBC 0.000 Nucleated RBC % (auto) 0.0 O2 Saturation ABG pH at Pt Temp ABG pCO2 at Pt Temp ABG pO2 at Pt Temp ABG HCO3 ABG Base Excess (Actual) Sodium Potassium Chloride Carbon Dioxide Anion Gap BUN Creatinine Estim Creat Clear Calc Estimated GFR POC Glucose 207 H 220 H Random Glucose Lactic Acid Calcium Troponin I High Sens 08/14/21 08/14/21 08/14/21 11:35 17:37 18:07 WBC 1.9 L RBC 3.93 L Hgb 11.3 L Hct 35.2 L MCV 89.6 MCH 28.8 MCHC 32.1 RDW 12.5 Plt Count 208 MPV 10.9 Immature Gran % (Auto) 4.8 H Neut % (Auto) 71.1 Lymph % (Auto) 20.9 [place] % (Auto) 1.6 L Eos % (Auto) 1.1 Baso % (Auto) 0.5 Lymph # (Auto) 0.4 L [place] # (Auto) 0.0 L Eos # (Auto) 0.0 Baso # (Auto) 0.0 Abs Immat Gran (auto) 0.09 H Absolute Neuts (auto) 1.3 L Absolute Nucleated RBC 0.000 Nucleated RBC % (auto) 0.0 O2 Saturation ABG pH at Pt Temp ABG pCO2 at Pt Temp ABG pO2 at Pt Temp ABG HCO3 ABG Base Excess (Actual) Sodium Potassium Chloride Carbon Dioxide Anion Gap BUN Creatinine Estim Creat Clear Calc Estimated GFR POC Glucose 199 H 254 H Random Glucose Lactic Acid Calcium Troponin I High Sens 08/14/21 08/14/21 08/14/21 18:07 18:07 18:07 WBC RBC Hgb Hct MCV MCH MCHC RDW Plt Count MPV Immature Gran % (Auto) Neut % (Auto) Lymph % (Auto) [place] % (Auto) Eos % (Auto) Baso % (Auto) Lymph # (Auto) [place] # (Auto) Eos # (Auto) Baso # (Auto) Abs Immat Gran (auto) Absolute Neuts (auto) Absolute Nucleated RBC Nucleated RBC % (auto) O2 Saturation ABG pH at Pt Temp ABG pCO2 at Pt Temp ABG pO2 at Pt Temp ABG HCO3 ABG Base Excess (Actual) Sodium 137 Potassium 3.7 Chloride 103 Carbon Dioxide 22 Anion Gap 16 BUN 15 Creatinine 0.79 Estim Creat Clear Calc 84.1 Estimated GFR > 60 POC Glucose Random Glucose 296 H Lactic Acid 3.4 H* Calcium 8.6 Troponin I High Sens 107.5 H* 08/14/21 18:24 WBC RBC Hgb Hct MCV MCH MCHC RDW Plt Count MPV Immature Gran % (Auto) Neut % (Auto) Lymph % (Auto) [place] % (Auto) Eos % (Auto) Baso % (Auto) Lymph # (Auto) [place] # (Auto) Eos # (Auto) Baso # (Auto) Abs Immat Gran (auto) Absolute Neuts (auto) Absolute Nucleated RBC Nucleated RBC % (auto) O2 Saturation 96.0 ABG pH at Pt Temp 7.51 H ABG pCO2 at Pt Temp 21 L ABG pO2 at Pt Temp 123 H ABG HCO3 17 L ABG Base Excess (Actual) -3.0 Sodium Potassium Chloride Carbon Dioxide Anion Gap BUN Creatinine Estim Creat Clear Calc Estimated GFR POC Glucose Random Glucose Lactic Acid Calcium Troponin I High Sens Preliminary micro results at discharge 08/11/21 13:24 Blood Culture - Preliminary Blood - Venous No growth after 48 hours. 08/11/21 13:15 Blood Culture - Preliminary Blood - Venous No growth after 48 hours. Imaging US - abdomen: Radiologist's impression: ITS Impressions Abdomen Ultrasound 08/11/21 12:36 IMPRESSION: Abnormal appearance of the gallbladder. Acute cholecystitis is within the differential. Prominent echogenic, avascular, nonshadowing material within the gallbladder is suspected to represent echogenic bile although a mass is within the differential although no color flow suggests against a mass. Clinical correlation is recommended. HIDA imaging may be warranted. Surgical consultation is also likely warranted. Hepatobiliary Scan Nuclear Medicine 08/11/21 21:40 IMPRESSION: Nonvisualization of the gallbladder would be compatible with obstruction of the cystic duct and would be compatible with acute cholecystitis, as suggested on the right upper quadrant ultrasound. Chest X-Ray 08/14/21 17:50 IMPRESSION: No acute disease seen in the chest or abdomen. KUB X-Ray 08/14/21 17:50 IMPRESSION: No acute disease seen in the chest or abdomen. Discharge Plan Discharge Patient Disposition: er Acute [facility] Discharge Diagnosis: Acute cholecystitis, CAD, s/p cholecystostomy tube placement Referrals: Holland Denise MD [Physician] - 2 Weeks Tony Yusuf MD [Primary Care Provider] - 1 Week Discharge Medications: Continued Lantus Solostar U-100 Insulin 100 unit/mL (3 mL) insulin pen 65 unit subcut BEDTIME 0RF latanoprost 0.005 % drops 1 drp ophthalmic-Right BEDTIME 0RF brimonidine 0.2 % drops 1 drp ophthalmic (eye) TID 0RF dorzolamide-timolol 22.3-6.8 mg/mL drops 1 drp ophthalmic-Right BID 0RF Discharge Orders: Discharge Order (Routine); Ordered 08/14/21 Ordered By: Holland Denise Diet: low fat, low cholesterol Activity on Discharge: As tolerated Stand Alone Forms: Patient Portal Discharge page Care Plan Goals: Return to normal activity and diet Health Concerns: Acute cholecystitis due to cholelithiasis, sepsis, coronary artery disease Plan of Treatment: Transferred to [facility] for definitive care, cardiac care Assessment: Acute cholecystitis due to cholelithiasis, sepsis, coronary artery disease
[2021-08-14 19:58] LABS: Hematocrit 32.7 % (37.0-47.0); Hemoglobin 10.6 g/dl (12.0-16.0); Mean Corpuscular HGB Conc 32.4 g/dl (31.0-35.0); Mean Corpuscular Hemoglobin 28.8 pg (27.0-33.0); Mean Corpuscular Volume 88.9 fL (80.0-98.0); Mean Platelet Volume 11.4 fL (9.4-12.3); Platelet Count 229 X10*3/uL (160-400); Red Blood Count 3.68 X10*6/uL (4.20-5.50); Red Cell Distribution Width 12.5 % (11.0-16.0); White Blood Count 3.7 X10*3/uL (4.8-10.8)
[2021-08-14 20:06] LABS: INTERNATIONAL NORM RATIO 1.4 (0.9-1.1); Prothrombin Time 16.3 SEC (9.9-13.0)
[2021-08-14 20:08] LABS: ABG Refer to POC result
[2021-08-14 20:09] LABS: PTT Heparin Drip 28.9 SEC (53-77.9)
--- NOTE | 2021-08-14 20:12 | W.PM.CCCN ---
History of Present Illness Data of Consult Service Date: 08/14/21 Requesting physician: Holland Denise Primary Care Provider: Tony Yusuf MD [facility] Reason for consult: Sepsis Nevaeh Jones is a 65 year old female c/o of abdominal pain and generalized weakness.? She has a prior history of gastric bypass surgery, DM2, CAD, prior [place] 2019 with 3 vessel disease, was cath'd but no stenting who reports eating excessively on Mother's Day her family.? She subsequently developed complaints of abdominal pain in the RUQ during the week which seemed to be aggravated by greasy foods.? The pain was intermittent at 1st but became more severe over the next several days.? She reports prior episodes of mild abdominal pain in the RUQ and had a known history of cholelithiasis.? She denied previous symptoms as severe as her current episode.? She subsequently presented to the emergency department for further evaluation and was admitted by the General Surgery Service. Cardiology consult was appreciated. She has not followed up with her cement truck loader recently. 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 There is a strong family history of blood clots. Ultrasound of the abdomen revealed some small cholelithiasis but also a larger area of echogenic bile without vascularity and without shadowing.? Subsequent HIDA scan confirm nonvisualization of the gallbladder suggestive of acute cholecystitis.?? During my bedside exam, the patient looked fatigued but was alert an oriented x3, she denied chest pain, sob but does endorse slight pain at the surgical site and reported feeling better since receiving IV Tylenol and some fluids (LR at 100/hr for the last 2 hours). vital signs were 108/52, heart rate 107, respiratory rate 24, temp 102.7 degrees and patient was satting at 93% on 3 L, looking comfortable. PACU nursing reports the patient did have a bowel movement and did urinate however there is no data in the computer to capture the urine output as of now. Recent labs revealed Lactic acid 3.4, trop 107.5, WBC 3.7, abg 7.51/ 21/123/17/-3.0, all other labs were normal. After discussing with Dr. Ji, the plan was to DC the cefepime and Flagyl in add meropenem, swab for COVID, DC the heparin as low suspicion for ACS, but in a triple-lumen and get a CVP, repeat troponin and lactic acid timed appropriately, put in a Chamberlain however as I was doing all of this, the cement truck loader preferred to transfer the patient to CCU at [facility] to get a bed was secured. So, I will transfer the patient to [facility] CCU. Review of Systems Review of Systems: Yes all other systems are reviewed and are negative [facility] Past Medical History Medical History CAD (coronary artery disease) Diabetes Factor II deficiency Functional capacity: independent ambulation Surgical History Surgical History Gastric bypass status for obesity Social History Social History Household Members: Spouse Housing: House Unable to assess alcohol history related to: Unknown Patient Tobacco Use Status: Former Tobacco user Second Hand Smoke Exposure: No Advance Directives Date on File: 08/12/21 service: No Meds Allergies Allergy/AdvReac Type Severity Reaction Status Date / Time levofloxacin [From LEVAQUIN] Allergy Mild RASH Verified 08/11/21 09:22 Penicillins [PCN] Allergy Mild UNKNOWN Verified 08/11/21 09:22 sulfur Allergy Unknown Rash Verified 08/11/21 09:22 Active Medications: Current Medications Brimonidine Tartrate (Brimonidine Tartrate 0.2% Oph 5 Ml Bottle) 1 drop EYE-BOTH TID [facility] Last Admin: 08/14/21 16:58 Dose: Not Given Documented by: Dextrose (Dextrose 50 % 25 Gm/50 Ml Syringe) 25 gm IVPUSH Q15M PRN; Protocol PRN Reason: per Hypoglycemia Standing Ord. Dextrose (Dextrose 50 % 25 Gm/50 Ml Syringe) 25 gm IVPUSH Q15M PRN; Protocol PRN Reason: per Hypoglycemia Standing Ord. Dorzolamide/Timolol (Dorzolamide/Timolo 2.23%/0.68% 10 Ml Drbtl) 1 drop EYE-RIGHT BID [facility] Last Admin: 08/14/21 07:54 Dose: 1 drop Documented by: Glucose (Glucose Gel 15 Gm Gel..Gram.) 15 gm PO Q15M PRN; Protocol PRN Reason: per Hypoglycemia Standing Ord. Glucose (Glucose Gel 15 Gm Gel..Gram.) 15 gm PO Q15M PRN; Protocol PRN Reason: per Hypoglycemia Standing Ord. Heparin Sodium (Porcine) (Heparin Sodium,Porcine 5,000 Unit/Ml Vial) 3,800 unit 40 unit/kg (3800 unit) IVPUSH PROTOCOL BOLUS PRN; Protocol PRN Reason: 40 unit/kg - Heparin Protocol Heparin Sodium (Porcine) (Heparin Sodium,Porcine 5,000 Unit/Ml Vial) 7,500 unit 80 unit/kg (7500 unit) IVPUSH PROTOCOL BOLUS PRN; Protocol PRN Reason: 80 unit/kg - Heparin Protocol Hydromorphone HCl (Hydromorphone Hcl 1 Mg/Ml Syringe) 0.5 mg IVPUSH Q3H PRN; Protocol PRN Reason: Pain, Severe (Pain Scale 7-10) Cefepime HCl 2 gm/ Sodium (Chloride) 50 mls @ 100 mls/hr IV Q12H [facility] Last Admin: 08/14/21 19:01 Dose: 100 mls/hr Documented by: Metronidazole (Flagyl) 500 mg in 100 mls @ 100 mls/hr IV Q6H [facility] Last Admin: 08/14/21 19:36 Dose: 100 mls/hr Documented by: Lactated Ringer's (Lr) 1,000 mls @ 100 mls/hr IVCONT .Q10H [facility] Acetaminophen (Ofirmev) 1,000 mg in 100 mls @ 400 mls/hr IV Q6H [facility] Stop: 08/15/21 12:44 Last Admin: 08/14/21 18:33 Dose: 400 mls/hr Documented by: Heparin Sodium/Sodium Chloride () 25,000 unit in 250 mls @ 0 mls/hr IVCONT .Q0M [facility]; Protocol Insulin Glargine (Insulin Glargine,Hum.Rec.Anlog 100 Unit/Ml 10 Ml Vial) 65 unit SUBCUT BEDTIME [facility] Last Admin: 08/13/21 21:57 Dose: 20 unit Documented by: Insulin Human Lispro (Insulin Lispro 100 Unit/Ml 3 Ml Vial) 0 unit SUBCUT QIDACHS [facility]; Protocol Last Admin: 08/14/21 19:24 Dose: Not Given Documented by: Latanoprost (Latanoprost 0.005 % Ophth Radha 2.5 Ml Drops) 1 drop EYE-RIGHT BEDTIME [facility] Last Admin: 08/13/21 19:47 Dose: 1 drop Documented by: Metoprolol Tartrate (Metoprolol Tartrate 25 Mg Tablet) 25 mg PO BID [facility]; Protocol Last Admin: 08/14/21 12:50 Dose: 25 mg Documented by: Ondansetron HCl (Ondansetron Hcl 4 Mg/2 Ml Vial) 4 mg IVPUSH Q8H PRN PRN Reason: Nausea and Vomiting Oxycodone HCl (Oxycodone Hcl Immed Release 5 Mg Tablet) 5 mg PO Q6H PRN PRN Reason: Pain, Moderate (Pain Scale 4-6 Last Admin: 08/12/21 20:42 Dose: 5 mg Documented by: Pharmacy Consult (Consult Rx Perform Med Rec) 1 each MISCELLANE ONCE PRN PRN Reason: Consult order Polyethylene Glycol (Polyethylene Glycol 3350 17 Gm Powd.Pack) 17 gm PO DAILY PRN PRN Reason: Constipation Sodium Chloride (0.9 % Sodium Chloride Flush 3 Ml Syringe) [facility] Last Admin: 08/14/21 19:24 Dose: Not Given Documented by: Zolpidem Tartrate (Zolpidem Tartrate 5 Mg Tablet) 5 mg PO BEDTIME PRN PRN Reason: Insomnia Home Medications Medication Instructions Recorded Confirmed Last Taken Type brimonidine 0.2 % eye drops 1 drp OPHTHALMIC (EYE) TID 08/11/21 08/11/21 08/11/21 History dorzolamide 22.3 mg-timolol 6.8 1 drp OPHTHALMIC-RIGHT BID 08/11/21 08/11/21 08/11/21 History mg/mL eye drops insulin glargine 100 unit/mL (3 65 unit SUBCUT BEDTIME 08/11/21 08/11/21 08/10/21 History mL) subcutaneous pen (Lantus Solostar U-100 Insulin) latanoprost 0.005 % eye drops 1 drp OPHTHALMIC-RIGHT BEDTIME 08/11/21 08/11/21 08/11/21 History Physical Exam Vital Signs: Vital Signs: Last Vital Signs Temp 100.4 F 08/14/21 19:43 Pulse 112 H 08/14/21 19:51 Resp 24 H 08/14/21 19:51 BP 114/56 L 08/14/21 19:43 Pulse Ox 94 08/14/21 19:51 BMI result Body Mass Index 33.3 Const: General: cooperative, comfortable, no acute distress and tired appearing Nutritional Appearance: obese Orientation/consciousness: patient oriented x3 Limitations: no limitations HEENT: Head: Yes normal to inspection Eyes: General: appearance normal, both eyes and all related structures Neck: Neck: Yes normal visual inspection and Yes full ROM Resp: Effort & Inspection: able to speak in complete sentences and tachypneic (slightly) Auscultation: clear to auscultation bilaterally Cardio: Rate: tachycardic (slightly low 100's) Rhythm: regular rhythm Heart sounds: normal S1 and S2 GI: Inspection: Yes obesity (cholecystostomy tube present) Palpation (GI): Soft to palpation and Tenderness to palpation present (GI) (area of tube) Skin: General skin exam: no rashes or lesions noted Neuro: General: patient oriented x3 Extrem: General: Yes normal to inspection Results Labs CBC & Chem 7: 08/14/21 19:29 08/14/21 18:07 Labs: Short CBC 08/14/21 08/14/21 08/14/21 Range/Units 04:39 18:07 19:29 WBC 10.1 1.9 L 3.7 L (4.8-10.8) X10*3/uL Hgb 10.1 L 11.3 L 10.6 L (12.0-16.0) g/dl Hct 30.8 L 35.2 L 32.7 L (37.0-47.0) % Plt Count 238 208 229 (160-400) X10*3/uL BMP 08/14/21 18:07 Sodium 137 Potassium 3.7 Chloride 103 Carbon Dioxide 22 BUN 15 Creatinine 0.79 Calcium 8.6 Microbiology Microbiology Results: Microbiology 08/11/21 13:24 Blood - Venous Blood Culture - Preliminary No growth after 48 hours. 08/11/21 13:15 Blood - Venous Blood Culture - Preliminary No growth after 48 hours. Assessment and Plan (1) Family history of hypercoagulable state: Status: Acute (2) Atherosclerotic cardiovascular disease: Status: Acute (3) Diabetes: Status: Acute (4) Factor II deficiency: Status: Acute (5) CAD (coronary artery disease): Status: Acute (6) Acute cholecystitis: Status: Acute (7) Sepsis: Status: Acute Plan as per cardiology request, Dr. Duong, patient will be transferred to [facility] CCU. heparin boluses have not been given nor has the Heparin drip been started. We will hold off on this so [facility] can decide how they would like to proceed.
[2021-08-14 20:15] LABS: Reflex Lactate? Lactic Acid Added
[2021-08-14 20:47] LABS: ~Lactic Acid-LAB USE ONLY 2.8 mmol/L (0.5-2.0)
--- NOTE | 2021-08-14 20:51 | PC.NURSE ---
PT TO ICU AT 2014 IN NO ACUTE DISTRESS FROM PACU. MONITOR: ST, RATE 110, NO ECTOPY. BP 91/37. O2 SAT 96% ON 3L. PEREYRA INSERTED WITHOUT DIFFICULTY # 16 FR. 300 ML KARENA URINE RETURNED IMMEDIATELY. AMBULANCE SERVICE HERE TO TRANSFER PT TO [facility], ROOM 102. MAD NAC SIGNED BY PAC FÁTIMA WILSON. PT TO [facility] AT THIS TIME.
--- NOTE | 2021-08-14 21:00 | PC.NURSE ---
REPORT TO [facility] RN GIVEN AT THIS TIME.
[2021-08-14 22:32] LABS: Reflex Lactate? 2 Y
[2021-08-22 20:11] LABS: Prothrombin 20210A NEGATIVE
== END 2021-08-14 20:50 | disposition short-term general hospital (02) | DRG 444 ==
LOC: HO.ED 14:05 → HO.EDOVER 14:09 → HO.S3 08-12 19:44 → HO.ICU 08-14 20:05
PROVIDERS: Internal Medicine; Nurse Practitioner Acute Care; Physician Assistant Surgical; Radiology Diagnostic Radiology; Admitting Provider Surgery; Emergency Provider Emergency Medicine; PCP Internal Medicine; Visit Provider Surgery
PROC: 0F9430Z Drainage of Gallbladder with Drainage Device, Percutaneous Approach (ICD-10-PCS; principal; 2021-08-14 15:00)
DX: K81.0 Acute cholecystitis (principal); A41.9 Sepsis, unspecified organism; D68.2 Hereditary deficiency of other clotting factors; T81.44XA Sepsis following a procedure, initial encounter; J45.909 Unspecified asthma, uncomplicated; D72.829 Elevated white blood cell count, unspecified; I25.10 Atherosclerotic heart disease of native coronary artery without angina pectoris; I45.10 Unspecified right bundle-branch block; E11.9 Type 2 diabetes mellitus without complications; N20.0 Calculus of kidney; I25.2 Old myocardial infarction; Z91.14 Patient's other noncompliance with medication regimen; Z20.822 Contact with and (suspected) exposure to COVID-19; Z98.84 Bariatric surgery status; Z87.891 Personal history of nicotine dependence; Z88.0 Allergy status to penicillin; Z79.4 Long term (current) use of insulin; Z79.899 Other long term (current) drug therapy
CPT/HCPCS: 36415; 36600; 49406; 71045; 74018; 76705; 78226; 80048; 80053; 81001; 81003; 81240; 82803; 82947; 83605; 83690; 84484; 85025; 85027; 85610; 85730; 87040; 87077; 87186; 87205; 87502; 87635; 93005; 93306; 94640; 96374; 99152; 99285; A9537; C1729; J0131; J0690; J0692; J1100; J1650; J2250; J2405; J3010

== ENCOUNTER 2022-12-13 | Outpatient (REF) | payer OTHER, SELFPAY ==
[2022-12-13 15:15] LABS: Glucose Random 182 mg/dL (60-115)
[2022-12-13 15:38] LABS: Estimated Average Glucose 209 mg/dL; Hemoglobin A1c % 8.9 % (<6.0)
== END 2022-12-13 00:01 | disposition home or self-care (01) ==
LOC: HO.LAB
PROVIDERS: PCP Internal Medicine; Visit Provider Physician Assistant Surgical
DX: E11.9 Type 2 diabetes mellitus without complications (principal); E66.9 Obesity, unspecified
CPT/HCPCS: 36415; 82947; 83036; 99453

== ENCOUNTER 2022-12-13 13:57 | Outpatient (AMB) | payer OTHER, SELFPAY ==
--- NOTE | 2022-12-13 15:03 | HO.OFFWMMET ---
Intake VS Expanded 12/13/22 17:25 Height 5 ft 6 in Weight 212 lb 1 oz BMI 34.2 Body Fat Percentage 42.1 Intake Visit Reasons: (OV) [facility] group clinic Allergies levofloxacin [From LEVAQUIN] Allergy (Mild, Verified 08/11/21 09:22) RASH Penicillins [PCN] Allergy (Mild, Verified 08/11/21 09:22) UNKNOWN sulfur Allergy (Unknown, Verified 08/11/21 09:22) Rash HPI HPI Comments History of Present Illness Details 67 yo female presented to metabolic clinic. Listened to presentation Received scale and this was set up with her phone and [place] maite Went through Right BMI maite and received a meal plan and exercise plan [facility] Medical History Preoperative cardiovascular examination Diabetes Factor II deficiency CAD (coronary artery disease) Surgical History Gastric bypass status for obesity Social History Household Members: Spouse Housing: House Unable to assess alcohol history related to: Unknown Patient Tobacco Use Status: Former Tobacco user Second Hand Smoke Exposure: No Advance Directives Date on File: 08/12/21 service: No Review of Systems Const All systems reviewed & are unremarkable except as noted in HPI and below Assessment & Plan Assessment & Plan (1) Obesity (BMI 30-39.9): Code(s): E66.9 - Obesity, unspecified Plan: Plans to participate in metabolic clinic. Given meal plan, exercise plan and body composition scale. Has my cell number and Dr Granda for improved communication and encouraged to text with any problems. Orders: Orders Hemoglobin A1c Today E11.9 - Type 2 diabetes mellitus without complications Glucose Random Today E11.9 - Type 2 diabetes mellitus without complications Coding Level of Care Code 86102 RPM Intital setup, edu Diagnoses Obesity (BMI 30-39.9) E66.9
[2022-12-13 17:25] VITALS: BMI 34.2
== END 2022-12-13 17:49 | disposition home or self-care (01) ==
LOC: HO.META 13:57
PROVIDERS: PCP Internal Medicine; Referring Provider Internal Medicine; Visit Provider Physician Assistant Surgical
DX: E66.9 Obesity, unspecified (principal)

== ENCOUNTER 2022-12-27 13:28 | Outpatient (AMB) | payer OTHER, SELFPAY ==
--- NOTE | 2022-12-27 13:47 | HO.OFFWMMET ---
Intake Intake Visit Reasons: (OV) [facility] Bad Cloth Checker Required: No Allergies levofloxacin [From LEVAQUIN] Allergy (Mild, Verified 08/11/21 09:22) RASH Penicillins [PCN] Allergy (Mild, Verified 08/11/21 09:22) UNKNOWN sulfur Allergy (Unknown, Verified 08/11/21 09:22) Rash Medication List - Last Reconciled 12/27/22 by YUSUF Martínez brimonidine 0.2% 1 drp ophthalmic (eye) TID dorzolamide-timolol 22.3-6.8 mg/mL 1 drp ophthalmic-Right BID insulin glargine (Lantus Solostar U-100 Insulin) 30 units subcut BEDTIME latanoprost 0.005% 1 drp ophthalmic-Right BEDTIME HPI HPI Comments History of Present Illness Details 67 yo female returns to metabolic clinic she rec'd glucometer last week and this has been not working properly. She will be given a new one today Reports BS 120-160, prior she was not checking her BS. She has been following the meal plan, although strict, she is following 98 %. She has been walking outside, 30 minutes or treadmill 30 min burnign about 120-130 calories States a month ago she could not walk around the block, now up to 3 times around the block. Does not want to change the meal plan at this time [facility] Medical History Preoperative cardiovascular examination Diabetes Factor II deficiency CAD (coronary artery disease) Surgical History Gastric bypass status for obesity Social History Household Members: Spouse Housing: House Unable to assess alcohol history related to: Unknown Patient Tobacco Use Status: Former Tobacco user Second Hand Smoke Exposure: No Advance Directives Date on File: 08/12/21 service: No Assessment & Plan Assessment & Plan (1) Obesity (BMI 30-39.9): Code(s): E66.9 - Obesity, unspecified Plan: making progress down 8.9 pounds insulin requirements down 10 30 from 65 encouraged to increase exercise by 1-2 minutes daily Coding Level of Care Code 51490 RPM each addnl 20 min Diagnoses Obesity (BMI 30-39.9) E66.9
== END 2022-12-27 14:37 | disposition home or self-care (01) ==
LOC: HO.META 13:28
PROVIDERS: PCP Internal Medicine; Visit Provider Physician Assistant Surgical
DX: E66.9 Obesity, unspecified (principal)
CPT/HCPCS: 99457

== ENCOUNTER → 2022-12-27 13:28 | Outpatient (BNVA) | payer OTHER, SELFPAY | PROVIDERS: PCP Internal Medicine; Visit Provider Physician Assistant Surgical ==

== ENCOUNTER 2023-01-24 13:50 | Outpatient (AMB) | payer OTHER, SELFPAY ==
--- NOTE | 2023-01-24 14:00 | A.OFFVIS_ITS ---
Intake Intake Visit Reasons: Pelvic pressure/ Dysuria Intake Note: NEW Patient presents today to establish treatment for Pelvic pressure/ Dysuria: Meds- None Allergies to Antibiotic- Penicillin & Levofloxacin Blood Thinner- Aspirin PVR- >48 mL Patient Symptoms: Dysuria, Pressure and Strong Urine Ordor Intensive Care Specialist Required: No Accompanied by: Self / Same As Patient Allergies levofloxacin [From LEVAQUIN] Allergy (Mild, Verified 01/24/23 14:01) RASH Penicillins [PCN] Allergy (Mild, Verified 01/24/23 14:01) UNKNOWN sulfur Allergy (Unknown, Verified 01/24/23 14:01) Rash Medication List - Last Reconciled 01/24/23 by Maury Da Silva MD aspirin 81 mg PO DAILY blood sugar diagnostic one touch verioflex test strips to check blood sugars BID brimonidine 0.2% 1 drp ophthalmic (eye) TID dorzolamide-timolol 22.3-6.8 mg/mL 1 drp ophthalmic-Right BID fosfomycin tromethamine 3 grams PO Q OTHER DAY 3 doses insulin glargine (Lantus Solostar U-100 Insulin) 30 units subcut BEDTIME lancets As directed latanoprost 0.005% 1 drp ophthalmic-Right BEDTIME HPI HPI Comments History of Present Illness Details Nevaeh is a 67-year-old female who presents today to the office to establish as a new patient for an evaluation of pelvic pressure/dysuria. 01/24/2023? She presents today for an evaluation of pelvic pressure/dysuria. The patient has a past medical history significant for insulin dependent diabetes, coronary artery disease, history of [place] in 2019, gastric bypass, factor 2 deficiency, cholecystitis in 06/19, and she is a former smoker. Patient states that she was admitted in ER on 07/2021 for severe cholelithiasis and bactremia E. Coli. Ppatient states that she was treated with repeat antibiotics for urinary tract infection symptoms. She was also prescribed Ceftinir 300 mg daily for 7 days. She has been on OTC cranberry supplements 500 mg BID. She states that her urine has metallic smell, that she has to bear down and push when she is urinating to completely empty the bladder. Examination: moderate pelvic floor relaxation, vaginal atrophy. Catheterization PVR: 100 mL. Evaluation today?UA? Leukocytes: 3 +; Nitrite: positive Plan: US retroperitoneum was ordered. Ordered Fosfomycin 3 gms. Follow-up in 6 weeks for possible Cystoscopy. [facility] Medical History (Updated 01/24/23 @ 15:14 by Maury Da Silva MD) Preoperative cardiovascular examination Diabetes Factor II deficiency CAD (coronary artery disease) Surgical History (Updated 01/24/23 @ 14:23 by MARYELLEN Woodard) Hx laparoscopic cholecystectomy Gastric bypass status for obesity Family History Father No problems noted. Mother No problems noted. Social History Household Members: Spouse Housing: House Unable to assess alcohol history related to: Unknown Patient Tobacco Use Status: Former Tobacco user Second Hand Smoke Exposure: No Advance Directives Date on File: 08/12/21 service: No Review of Systems Const All systems reviewed & are unremarkable except as noted in HPI and below Reports no additional complaints Eyes Reports no additional complaints ENT Reports no additional complaints Card Denies dyspnea Resp Denies cough and Denies dyspnea GI Reports no additional complaints Reports no additional complaints Musc Reports no additional complaints Skin/Breast Denies rash and Denies unusual bruising Neuro Reports no additional complaints Psych Reports no additional complaints Endo Reports no additional complaints Michael/Lymph Reports no additional complaints Aller/Immun Reports no additional complaints Physical Exam Const General: cooperative, healthy appearing and no acute distress Orientation/consciousness: patient oriented x3 HEENT Head: Yes normal to inspection, Yes normocephalic and Yes atraumatic Eyes Conjunctivae: conjunctivae normal Neck Neck: Yes normal visual inspection and Yes trachea midline Chest Chest palpation & inspection: normal inspection of the chest Resp Effort & Inspection: normal respiratory effort Cardio Rate: regular rate GI Inspection: Yes normal to inspection Palpation (GI): Soft to palpation General: No no CVA tenderness External Female Exam: normal external appearance Speculum Exam - Vagina: vagina atrophic Back/Spine/Pelvis Back: No no CVA tenderness Skin General skin exam: no rashes or lesions noted Neuro General: patient oriented x3 Extrem General: No edema Psych Appearance: grossly normal Office Procedures Bladder/Catheter Procedure Details: Under sterile technique a 14 [place]bourgish catheter was passed transurethrally, 100 mL urine drained [id number]-[id number] Bladder Catheter Procedure code (CPT) selection complete Post Void Residual Post Residual Void Post Void Residual (PVR): 48 07226-Dtho Void Residual by ultrasound Results AMB Urinalysis, Automated UA Leukoctes 500 Faby/uL Last Edit by MARYELLEN Woodard on 01/24/23 14:21 3+ Pino Sigala 01/24/23 14:21 UA Nitrite Positive Last Edit by MARYELLEN Woodard on 01/24/23 14:21 UA Urobilinogen 0.2 mg/dL Last Edit by MARYELLEN Woodard on 01/24/23 14:2 1 UA Protein 0 mg/dL Last Edit by Pino Sigala Darya on 01/24/23 14:21 UA pH 6.0 Last Edit by Pino Sigala Darya on 01/24/23 14:21 UA Blood 0 Kimo/uL Last Edit by MARYELLEN Woodard on 01/24/23 14:21 UA Specific [place] 1.015 Last Edit by Pino Sigala Darya on 01/24/23 14: 21 UA Ketone Negative Last Edit by MARYELLEN Woodard on 01/24/23 14:21 UA Bilirubin 0 mg/dL Last Edit by Pino Sigala [facility] on 01/24/23 14:21 UA Glucose 0 mg/dL Last Edit by Pino Sigala Darya on 01/24/23 14:21 Results Reviewed Results Reviewed: Laboratory Last Values Urine pH (Auto) 6.0 01/24/23 14:01 Specific [place] (Auto) 1.015 01/24/23 14:01 Urine Protein (Auto) 0 mg/dL 01/24/23 14:01 Glucose (UA)(Auto) 0 mg/dL 01/24/23 14:01 Urine Ketones (Auto) Negative 01/24/23 14:01 Urine Blood (Auto) 0 Kimo/uL 01/24/23 14:01 Urine Nitrite (Auto) Positive 01/24/23 14:01 Urine Bilirubin (Auto) 0 mg/dL 01/24/23 14:01 Urine Urobilinogen (Auto) 0.2 mg/dL 01/24/23 14:01 Leukocyte Esterase (Auto) 500 Faby/uL 01/24/23 14:01 Assessment & Plan Assessment & Plan (1) Diabetes: Code(s): E11.9 - Type 2 diabetes mellitus without complications (2) Feeling of incomplete bladder emptying: Code(s): R39.14 - Feeling of incomplete bladder emptying (3) Complicated UTI (urinary tract infection): Code(s): N39.0 - Urinary tract infection, site not specified Plan US retroperitoneum was ordered. Ordered Fosfomycin 3 gms. Follow-up in 6 weeks for possible Cystoscopy. Orders: Orders AMB Urinalysis Automated 01/24/23 Z13.9 - Encounter for screening, unspecified AMB Post Void Residual by ultrasound 01/24/23 N39.8 - Other specified disorders of urinary system US retroperitoneal comp 01/24/23 N39.0 - Urinary tract infection, site not specified Urine Culture 01/24/23 N39.0 - Urinary tract infection, site not specified AMB Bladder/Catheter Procedure 01/24/23 N39.0 - Urinary tract infection, site not specified Medications: New fosfomycin tromethamine 3 grams PO Q OTHER DAY 3 ea 0RF 3 doses Patient Instructions: The patient had an opportunity to ask questions regarding treatment plan. All questions were answered. Imaging, Laboratory studies and physical exam results were discussed and reviewed in detail. No major barriers to understanding were identified. The patient expressed understanding and agreement with the above treatment plan. The patient is aware they should contact our office by phone for worsening of t heir current condition or the appearance of new symptoms. Compliance is encouraged with any medications and followup testing that is ordered. It is a privilege to be allowed the opportunity to participate in the urologic care of your patient. If you have any questions or concerns regarding treatment for the above conditions please do not hesitate to contact me. The office telephone contact is [phone]. This note is constructed in part using voice recognition software. While every effort has been made to ensure accuracy creative services director errors may have been included. Yours sincerely, Maury Da Silva MD Coding Level of Care Code New Pt Level 4 (46213) Diagnoses Diabetes E11.9 Feeling of incomplete bladder emptying R39.14 Complicated UTI (urinary tract infection) N39.0 CPT Codes Bladder/Catheter Procedure - CPT: 96485-Hxyyvm Bladder Catheter ([id number]) Post Residual Void - PVR CPT Code: 15351-Stww Void Residual by ultrasound ([id number])
== END 2023-01-24 15:12 | disposition home or self-care (01) ==
PROVIDERS: PCP Internal Medicine; Visit Provider Urology
DX: E11.9 Type 2 diabetes mellitus without complications (principal); R39.14 Feeling of incomplete bladder emptying; N39.0 Urinary tract infection, site not specified
CPT/HCPCS: 51701; 99204

== ENCOUNTER 2023-01-24 13:50 | Outpatient (REF) | payer OTHER, SELFPAY | END 2023-01-24 13:51 | disposition home or self-care (01) | LOC: HO.LAB 13:50 | PROVIDERS: PCP Internal Medicine; Visit Provider Urology | DX: N39.0 Urinary tract infection, site not specified (principal); R10.2 Pelvic and perineal pain; R39.14 Feeling of incomplete bladder emptying; E11.9 Type 2 diabetes mellitus without complications; Z79.899 Other long term (current) drug therapy | CPT/HCPCS: 51701; 51798; 81003; 87086; 87088; 87186; 99202 ==

== ENCOUNTER 2023-02-04 13:44 | Outpatient (REF) | payer OTHER, SELFPAY ==
--- NOTE | ~2023-02-04 | US_ITS ---
EXAMINATION: US RETROPERITONEAL COMPLETE (RENAL) CLINICAL INFORMATION: Urinary tract infection, site not specified. COMPARISON: KUB dated 08/14/2021. Ultrasound abdomen limited dated 08/11/2021. Renals only ultrasound dated 09/05/2015. TECHNIQUE: Real-time imaging of the kidneys and bladder. Limited visualization due to bowel gas. FINDINGS: RIGHT KIDNEY: 13.0 x 6.0 x 6.4 cm (SAG x AP x TRV). No hydronephrosis. No renal calculi. Renal cortical thickness is normal. Limited visualization. LEFT KIDNEY: 11.9 x 6.1 x 5.9 cm (SAG x AP x TRV). No hydronephrosis. No renal calculi. Renal cortical thickness is normal. Limited visualization. Left renal mid pole 1.0 x 1.1 x 0.9 cm cyst with peripheral echogenic focus characteristic of a calcification. Ultrasound of 09/05/2015 demonstrated a 0.9 x 0.7 x 0.8 cm lateral cyst. BLADDER: Well distended and normal. Bilateral ureteral jets are demonstrated. Prevoid bladder volume is 387 mL. Postvoid bladder volume is 57 mL. US/US retroperitoneal comp IMPRESSION: No hydronephrosis. No renal calculi.
== END 2023-02-04 13:45 | disposition home or self-care (01) ==
LOC: HO.HMGCX 13:44
PROVIDERS: PCP Internal Medicine; Visit Provider Urology
DX: N39.0 Urinary tract infection, site not specified (principal)
CPT/HCPCS: 76770

== ENCOUNTER 2023-03-06 13:28 | Outpatient (AMB) | payer OTHER, SELFPAY ==
--- NOTE | 2023-03-06 13:30 | MHC.OFFVIS ---
Intake Intake Visit Reasons: 6w/possible cysto/US Intake Note: Patient presents today for CYSTOSCOPY Procedure and US Results: Meds- None Allergies to Antibiotic- Penicillin & Levofloxacin Blood Thinner- Aspirin Disposable Uro-G Cystoscope Cannula: Lot: [id number] Exp: 08/11/2024 Tractor Operator Helper Required: No Accompanied by: Self / Same As Patient Allergies levofloxacin [From LEVAQUIN] Allergy (Mild, Verified 03/06/23 14:03) RASH Penicillins [PCN] Allergy (Mild, Verified 03/06/23 14:03) UNKNOWN sulfur Allergy (Unknown, Verified 03/06/23 14:03) Rash HPI HPI Comments History of Present Illness Details Nevaeh is a 67-year-old female who presents today to the office for a follow-up. 03/06/2023? She is followed today for cystoscopy procedure and US results. She was last seen by me on 01/24/2023 for pelvic pressure/dysuria. I reviewed the renal US results from 02/04/2023 revealed no hydronephrosis, renal calcluli noted. I reviewed the urine culture results from 01/24/2023 revealed E.coli. Cystoscopy procedure: Consent was obtained for the procedure. Cystoscopy findings: Bladder wall thickening; no suspicious bladder lesions noted. Review of charts: Last visit: 01/24/2023? She presents today for an evaluation of pelvic pressure/dysuria. The patient has a past medical history significant for insulin dependent diabetes, coronary artery disease, history of [place] in 2018, gastric bypass, factor 2 deficiency, cholecystitis in 06/19, and she is a former smoker. Patient states that she was admitted in ER on 07/2021 for severe cholelithiasis and bactremia E. Coli. Ppatient states that she was treated with repeat antibiotics for urinary tract infection symptoms. She was also prescribed Ceftinir 300 mg daily for 7 days. She has been on OTC cranberry supplements 500 mg BID.? She states that her urine has metallic smell, that she has to bear down and push when she is urinating to completely empty the bladder.? 01/24/23--Examination: moderate pelvic floor relaxation, vaginal atrophy. Catheterization PVR: 100 mL.? UA? Leukocytes: 3 +; Nitrite: positive 03/06/2023: Plan:? Ordered tamsulosin 0.4 mg daily for urinary symptoms of hesitancy. Discussed side effects of dizziness from tamsulosin and patient will call us if she is having side effects with tamsulosin. Follow-up in 3 months. [facility] Medical History Preoperative cardiovascular examination Diabetes Factor II deficiency CAD (coronary artery disease) Surgical History Hx laparoscopic cholecystectomy Gastric bypass status for obesity Family History Father No problems noted. Mother No problems noted. Social History Household Members: Spouse Housing: House Unable to assess alcohol history related to: Unknown Patient Tobacco Use Status: Former Tobacco user Second Hand Smoke Exposure: No Advance Directives Date on File: 08/12/21 service: No Review of Systems Const All systems reviewed & are unremarkable except as noted in HPI and below Reports no additional complaints Eyes Reports no additional complaints ENT Reports no additional complaints Card Denies dyspnea Resp Denies cough and Denies dyspnea GI Reports no additional complaints Reports no additional complaints Musc Reports no additional complaints Skin/Breast Denies rash and Denies unusual bruising Neuro Reports no additional complaints Psych Reports no additional complaints Endo Reports no additional complaints Michael/Lymph Reports no additional complaints Aller/Immun Reports no additional complaints Office Procedures Cystoscopy Consent Discussed risk and benefit or proposed procedure with the patient. Information consent for procedure given to the patient. Discussed technical aspects, risks, benefits and alternatives in full. Addressed all of the patient's questions and concerns regarding the procedure. The patient demonstrated knowledge and understanding. They wish to proceed with this procedure. Preparation The patient was prepped in the usual manner. A product test engineer was present and in the room. Genitalia was prepped with betadine solution in a sterile manner. Lidocaine Jelly 2% was placed into the urethra and 16Fr flexible Olympus cystoscope was inserted into the meatus after adequate lubrication. Procedure Time out per protocol performed. Bladder Inspection Bladder Inspection: The bladder was inspected in its entirety with utilization retroflexion displaying: Tumor(s): none Trabeculation: mild Mucosal Erthema: N/A Orifices: normal shape and position Urethra: normal Cystoscopy findings: Bladder wall thickening; no suspicious bladder lesions noted. [id number] DISPOSABLE SCOPE URO-G FLEXIBLE SCOPE Procedure code (CPT) selection complete Office Meds lidocaine HCl 2 % mucosal jelly in applicator Performing Provider: Maury Da Silva MD Performing Location: [facility] [place] [facility] Administered by: Karie Verma RN on 03/06/23 14:01 Dose Route Admin Location Dispensed Lot Number Expiration Date ND Supervisor Data Processing 10 mL intra-urethral 20 mL nitrofurantoin monohydrate/macrocrystals 100 mg capsule Performing Provider: Maury Da Silva MD Performing Location: [facility] [place] [facility] Administered by: Karie Verma RN on 03/06/23 14:01 Dose Route Admin Location Dispensed Lot Number Expiration Date ND Supervisor Data Processing 100 mg PO 1 cap naproxen 500 mg tablet Performing Provider: Maury Da Silva MD Performing Location: [facility] [place] [facility] Administered by: Karie Verma RN on 03/06/23 14:01 Dose Route Admin Location Dispensed Lot Number Expiration Date ND Supervisor Data Processing 500 mg PO 1 tab Results AMB Urinalysis, Automated UA Leukoctes 15 Faby/uL Last Edit by MARYELLEN Woodard on 03/06/23 14:05 UA Nitrite Negative Last Edit by MARYELLEN Wodoard on 03/06/23 14:05 UA Urobilinogen 0.2 mg/dL Last Edit by MARYELLEN Woodard on 03/06/23 14:05 UA Protein 30 mg/dL Last Edit by MARYELLEN Woodard on 03/06/23 14:05 1+ Pino Sigala 03/06/23 14:05 UA pH 5.5 Last Edit by MARYELLEN Woodard on 03/06/23 14:05 UA Blood 0 Kimo/uL Last Edit by MARYELLEN Woodard on 03/06/23 14:05 UA Specific [place] 1.030 Last Edit by MARYELLEN Woodard on 03/06/23 14:05 UA Ketone Negative Last Edit by MARYELLEN Woodard on 03/06/23 14:05 UA Bilirubin 1 mg/dL Last Edit by MARYELLEN Woodard on 03/06/23 14:05 1+ Pino Sigala 03/06/23 14:05 UA Glucose 0 mg/dL Last Edit by MARYELLEN Woodard on 03/06/23 14:05 Results Reviewed Results Reviewed: Laboratory Last Values Urine pH (Auto) 5.5 03/06/23 14:03 Specific [place] (Auto) 1.030 03/06/23 14:03 Urine Protein (Auto) 30 mg/dL 03/06/23 14:03 Glucose (UA)(Auto) 0 mg/dL 03/06/23 14:03 Urine Ketones (Auto) Negative 03/06/23 14:03 Urine Blood (Auto) 0 Kimo/uL 03/06/23 14:03 Urine Nitrite (Auto) Negative 03/06/23 14:03 Urine Bilirubin (Auto) 1 mg/dL 03/06/23 14:03 Urine Urobilinogen (Auto) 0.2 mg/dL 03/06/23 14:03 Leukocyte Esterase (Auto) 15 Faby/uL 03/06/23 14:03 Date of Service: 02/04/23 EXAMINATION: US RETROPERITONEAL COMPLETE (RENAL) CLINICAL INFORMATION: Urinary tract infection, site not specified. COMPARISON: KUB dated 08/14/2021. Ultrasound abdomen limited dated 08/11/2021. Renals only ultrasound dated 09/05/2015. FINDINGS: RIGHT KIDNEY: 13.0 x 6.0 x 6.4 cm (SAG x AP x TRV). No hydronephrosis. No renal calculi. Renal cortical thickness is normal. Limited visualization. LEFT KIDNEY: 11.9 x 6.1 x 5.9 cm (SAG x AP x TRV). No hydronephrosis. No renal calculi. Renal cortical thickness is normal. Limited visualization. Left renal mid pole 1.0 x 1.1 x 0.9 cm cyst with peripheral echogenic focus characteristic of a calcification. Ultrasound of 09/05/2015 demonstrated a 0.9 x 0.7 x 0.8 cm lateral cyst. BLADDER: Well distended and normal. Bilateral ureteral jets are demonstrated. Prevoid bladder volume is 387 mL. Postvoid bladder volume is 57 mL. IMPRESSION: No hydronephrosis. No renal calculi. Ordered: Urine Culture Procedure Result Verified Site Urine Culture Final 01/26/23 Organism 1 Escherichia coli Quant > 100,000 cfu/mL E coli M.I.C. RX --------- --- Ampicillin <=2 S Ceftriaxone <=0.25 S Gentamicin <=1 S Levofloxacin <=0.12 S Nitrofurantoin <=16 S Trimethoprim/Sulfamethoxazole <=20 S Assessment & Plan Assessment & Plan (1) Diabetes: Code(s): E11.9 - Type 2 diabetes mellitus without complications (2) Feeling of incomplete bladder emptying: Code(s): R39.14 - Feeling of incomplete bladder emptying (3) Recurrent UTI: Code(s): N39.0 - Urinary tract infection, site not specified (4) Bladder wall thickening: Code(s): N32.89 - Other specified disorders of bladder Plan Ordered tamsulosin 0.4 mg daily for urinary symptoms of hesitancy. Discussed side effects of dizziness from tamsulosin and patient will call us if she is having side effects with tamsulosin. Follow-up in 3 months. Orders: Orders AMB Urinalysis Automated 03/06/23 Z13.9 - Encounter for screening, unspecified AMB Cystoscopy 03/06/23 N39.0 - Urinary tract infection, site not specified, R39.14 - Feeling of incomplete bladder emptying Patient Instructions: The patient had an opportunity to ask questions regarding treatment plan. All questions were answered. Imaging, Laboratory studies and physical exam results were discussed and reviewed in detail. No major barriers to understanding were identified. The patient expressed understanding and agreement with the above treatment plan. The patient is aware they should contact our office by phone for worsening of their current condition or the appearance of new symptoms. Compliance is encouraged with any medications and followup testing that is ordered. It is a privilege to be allowed the opportunity to participate in the urologic care of your patient. If you have any questions or concerns regarding treatment for the above conditions please do not hesitate to contact me. The office telephone contact is [phone]. This note is constructed in part using voice recognition software. While every effort has been made to ensure accuracy plate printer errors may have been included. Yours sincerely, Maury Da Silva MD Coding Level of Care Code Est Pt Level 3 (61049) Diagnoses Diabetes E11.9 Feeling of incomplete bladder emptying R39.14 Recurrent UTI N39.0 Bladder wall thickening N32.89 CPT Codes Cystoscopy - CPT: 20556-Yeilsncohl ([id number])
== END 2023-03-06 14:35 | disposition home or self-care (01) ==
PROVIDERS: PCP Internal Medicine; Visit Provider Urology
DX: N39.0 Urinary tract infection, site not specified (principal); R39.14 Feeling of incomplete bladder emptying; Z13.9 Encounter for screening, unspecified
CPT/HCPCS: 52000; 99213

== ENCOUNTER → 2023-03-06 13:28 | Outpatient (BNVA) | payer OTHER, SELFPAY | PROVIDERS: PCP Internal Medicine; Visit Provider Urology | DX: R39.14 Feeling of incomplete bladder emptying (principal); N39.0 Urinary tract infection, site not specified; N32.89 Other specified disorders of bladder; E11.9 Type 2 diabetes mellitus without complications | CPT/HCPCS: 52000; 81003; 99212 ==

== ENCOUNTER 2023-07-25 11:46 | Outpatient (REF) | payer OTHER, SELFPAY ==
[2023-07-25 13:32] LABS: Appearance Urine Clear; Color Urine Yellow; Glucose Urine UA 500 mg/dL (Negative); Leukocyte Esterase Urine Negative (Negative); Nitrite Urine Negative (Negative); Specific Gravity - Urine >= 1.030 (1.005-1.025); UMIC TRIGGER UA YES; Urine Blood Negative (Negative); Urine Ketones Negative (Negative); Urine Protein 100 (2+) mg/dL (Neg-Trace)
[2023-07-25 13:36] LABS: Bacteria Urine None Seen (None Seen); Hyaline Casts Urine 0-2 /LPF (0-2); RBC Urine 0-2 /HPF (0-2); WBC Urine 0-5 /HPF (0-5)
== END 2023-07-25 11:47 | disposition home or self-care (01) ==
LOC: HO.LAB 11:46
PROVIDERS: PCP Internal Medicine; Visit Provider Urology
DX: N39.0 Urinary tract infection, site not specified (principal); R39.14 Feeling of incomplete bladder emptying
CPT/HCPCS: 81001; 87086

== ENCOUNTER 2023-09-02 12:43 | Outpatient (REF) | payer OTHER, SELFPAY | END 2023-09-02 12:44 | disposition home or self-care (01) | LOC: HO.HMGCLDS 12:43 | PROVIDERS: PCP Internal Medicine; Visit Provider Urology | DX: N39.0 Urinary tract infection, site not specified (principal) | CPT/HCPCS: 87086 ==

== ENCOUNTER 2023-09-15 11:19 | Outpatient (AMB) | payer OTHER, SELFPAY ==
--- NOTE | 2023-09-15 11:45 | A.OFFVIS_ITS ---
Intake Visit Reasons: follow up/recurrent UTIs Intake Note: Patient presents today for a follow-up on Recurrent UTIs: Meds- Pyridium Allergies to Antibiotic- Penicillin & Levofloxacin Blood Thinner- Aspirin Inside Wireman Required: No Accompanied by: Self / Same As Patient Allergies levofloxacin [From LEVAQUIN] Allergy (Mild, Verified 03/06/23 14:03) RASH Penicillins [PCN] Allergy (Mild, Verified 03/06/23 14:03) UNKNOWN sulfur Allergy (Unknown, Verified 03/06/23 14:03) Rash Medication List - Last Reconciled 09/15/23 by Maury Da Silva MD aspirin 81 mg PO DAILY blood sugar diagnostic one touch verioflex test strips to check blood sugars BID brimonidine 0.2% 1 drp ophthalmic (eye) TID cranberry extract 250 mg PO DAILY 30 days dorzolamide-timolol 22.3-6.8 mg/mL 1 drp ophthalmic-Right BID insulin glargine (Lantus Solostar U-100 Insulin) 30 units subcut BEDTIME lancets As directed latanoprost 0.005% 1 drp ophthalmic-Right BEDTIME phenazopyridine (Pyridium) 200 mg PO BID 3 days tamsulosin (Flomax) 0.4 mg PO BEDTIME HPI Comments Details: Neaveh is a 67-year-old female who presents today to the office for a follow-up due to LUTS recurent UTI's, dysuria and hesitency. Co Morbidy - Diabetes. She states the pyridium helps. She states she did not start the tamsulosin. She states if she makes a concerted effort to relax while she is urinating she feels that she empties better. She states she is moving to [facility] and will look for PCP and Urologist there. She would like refills on the pyridium and wants to start the tamsulosin. Review of charts: 03/06/2023? She is followed today for cystoscopy procedure and US results. She was last seen by me on 01/24/2023 for pelvic pressure/dysuria. I reviewed the renal US results from 02/04/2023 revealed no hydronephrosis, renal calcluli noted. I reviewed the urine culture results from 01/24/2023 revealed E.coli. Cystoscopy procedure: Consent was obtained for the procedure. Cystoscopy findings: Bladder wall thickening; no suspicious bladder lesions noted. 01/24/2023? She presents today for an evaluation of pelvic pressure/dysuria. The patient has a past medical history significant for insulin dependent diabetes, coronary artery disease, history of AK in 2018, gastric bypass, factor 2 deficiency, cholecystitis in 06/19, and she is a former smoker. Patient states that she was admitted in ER on 07/2021 for severe cholelithiasis and bactremia E. Coli. Ppatient states that she was treated with repeat antibiotics for urinary tract infection symptoms. She was also prescribed Ceftinir 300 mg daily for 7 days. She has been on OTC cranberry supplements 500 mg BID.? She states that her urine has metallic smell, that she has to bear down and push when she is urinating to completely empty the bladder.?--Examination: moderate pelvic floor relaxation, vaginal atrophy. Catheterization PVR: 100 mL.? UA? Leukocytes: 3 +; Nitrite: positive PFSH Medical History Preoperative cardiovascular examination Diabetes Factor II deficiency CAD (coronary artery disease) Surgical History Hx laparoscopic cholecystectomy Gastric bypass status for obesity Family History Father No problems noted. Mother No problems noted. Social History Household Members: Spouse Housing: House Unable to assess alcohol history related to: Unknown Patient Tobacco Use Status: Former Tobacco user Second Hand Smoke Exposure: No Advance Directives Date on File: 08/12/21 service: No Review of Systems Const All systems reviewed & are unremarkable except as noted in HPI and below Reports no additional complaints Eyes Reports no additional complaints ENT Reports no additional complaints Card Reports no additional complaints Resp Reports no additional complaints GI Reports no additional complaints Reports as per HPI Musc Reports no additional complaints Skin/Breast Reports system reviewed and no additional complaints, except as documented Neuro Reports no additional complaints Psych Reports no additional complaints Endo Reports no additional complaints Michael/Lymph Reports no additional complaints Aller/Immun Reports no additional complaints Results AMB Urinalysis, Automated UA Leukoctes 0 Faby/uL Last Edit by MARYELLEN Woodard on 09/15/23 11:54 UA Nitrite Negative Last Edit by MARYELLEN Woodard on 09/15/23 11:54 UA Urobilinogen 0.2 mg/dL Last Edit by MARYELLEN Woodard on 09/15/23 11:5 4 UA Protein 30 mg/dL Last Edit by MARYELLEN Woodard on 09/15/23 11:54 1+ Pino Sigala 09/15/23 11:54 UA pH 5.5 Last Edit by MARYELLEN Woodard on 09/15/23 11:54 UA Blood 10 Kimo/uL Last Edit by MARYELLEN Woodard on 09/15/23 11:54 UA Specific Thorp 1.025 Last Edit by MARYELLEN Woodard on 09/15/23 11: 54 UA Ketone Negative Last Edit by MARYELLEN Woodard on 09/15/23 11:54 UA Bilirubin 0 mg/dL Last Edit by MARYELLEN Woodard on 09/15/23 11:54 UA Glucose 500 mg/dL Last Edit by MARYELLEN Woodard on 09/15/23 11:54 2+ Pino Sigala 09/15/23 11:54 Results Reviewed Results Reviewed: Laboratory Last Values Urine pH (Auto) 5.5 09/15/23 11:48 Specific Thorp (Auto) 1.025 09/15/23 11:48 Urine Protein (Auto) 30 mg/dL 09/15/23 11:48 Glucose (UA)(Auto) 500 mg/dL 09/15/23 11:48 Urine Ketones (Auto) Negative 09/15/23 11:48 Urine Blood (Auto) 10 Kimo/uL 09/15/23 11:48 Urine Nitrite (Auto) Negative 09/15/23 11:48 Urine Bilirubin (Auto) 0 mg/dL 09/15/23 11:48 Urine Urobilinogen (Auto) 0.2 mg/dL 09/15/23 11:48 Leukocyte Esterase (Auto) 0 Faby/uL 09/15/23 11:48 Assessment & Plan Assessment & Plan (1) Diabetes: Code(s): E11.9 - Type 2 diabetes mellitus without complications Category: Medical (2) Feeling of incomplete bladder emptying: Code(s): R39.14 - Feeling of incomplete bladder emptying Category: Medical (3) Recurrent UTI: Code(s): N39.0 - Urinary tract infection, site not specified Category: Medical (4) Bladder wall thickening: Code(s): N32.89 - Other specified disorders of bladder Category: Medical Plan Tamsulosin daily, pyridium prn. Orders: Orders AMB Urinalysis Automated 09/15/23 Z13.9 - Encounter for screening, unspecified Medications: New tamsulosin (Flomax) 0.4 mg PO BEDTIME 30 caps 5RF Changed From phenazopyridine (Pyridium) 200 mg PO BID 3 days 6 tabs 0RF To phenazopyridine (Pyridium) take with meals 200 mg PO BID 3 days PRN 40 tabs 1RF urinary pain Patient Instructions: The patient had an opportunity to ask questions regarding treatment plan. The patient expressed understanding and agreement with the above treatment plan. The patient is aware they should contact our office by phone for worsening of their current condition or the appearance of new symptoms. Compliance is encouraged with any medications and followup testing that is ordered. It is a privilege to be allowed the opportunity to participate in the urologic care of your patient. If you have any questions or concerns regarding treatment for the above conditions please do not hesitate to contact me. The office telephone contact is [phone]. This note is constructed in part using voice recognition software. While every effort has been made to ensure accuracy dispatcher service errors may have been included. Yours sincerely, Maury Da Silva MD Coding Level of Care Code Est Pt Level 4 (85989) Diagnoses Diabetes E11.9 Feeling of incomplete bladder emptying R39.14 Recurrent UTI N39.0 Bladder wall thickening N32.89
== END 2023-09-15 12:49 | disposition home or self-care (01) ==
PROVIDERS: PCP Internal Medicine; Visit Provider Urology
DX: E11.9 Type 2 diabetes mellitus without complications (principal); R39.14 Feeling of incomplete bladder emptying; N39.0 Urinary tract infection, site not specified; N32.89 Other specified disorders of bladder
CPT/HCPCS: 99214

== ENCOUNTER → 2023-09-15 11:19 | Outpatient (BNVA) | payer OTHER, SELFPAY | PROVIDERS: PCP Internal Medicine; Visit Provider Urology | DX: R39.14 Feeling of incomplete bladder emptying (principal); N39.0 Urinary tract infection, site not specified; N32.89 Other specified disorders of bladder; E11.9 Type 2 diabetes mellitus without complications | CPT/HCPCS: 81003; 99212 ==